=== PATIENT | male | born 1955 | race Caucasian/White ===

== ENCOUNTER 2018-03-23 17:02 | Emergency (ER) | payer MEDICARE, OTHER ==
[~2018-03-23] VITALS: Ht 170.2 cm; Wt 108.4 kg
--- NOTE | 2018-03-23 17:14 | PHYS DOC ---
Past Medical History Past Medical History: CVA (LUKAS BENNETT APRN) Adult General Chief Complaint Chief Complaint: MECHANICAL FALL HPI HPI Patient is a 62 year old male with history of CVA, left-sided weakness, who presents today to be evaluated status post falling. Patient states he was trying his new cane when he accidentally fell. Patient denies any loss of consciousness. He states he hit the left side of his face on the table. Patient has bruising on the left forehead. Patient denies any neck pain. Patient denies being on any anticoagulants. (LUKAS BENNETT APRN) Review of Systems Review of Systems Constitutional: Denies fever or chills [] Eyes: Denies change in visual acuity, redness, or eye pain [] HENT: Denies nasal congestion or sore throat [] Respiratory: Denies cough or shortness of breath [] Cardiovascular: No additional information not addressed in HPI [] GI: Denies abdominal pain, nausea, vomiting, bloody stools or diarrhea [] : Denies dysuria or hematuria [] Musculoskeletal: 40 from standing. Denies back pain or joint pain [] Integument: Denies rash or skin lesions [] Neurologic: Bruising to the left side of the face and head. Denies headache, focal weakness or sensory changes [] All other systems were reviewed and found to be within normal limits, except as documented in this note. (LUKAS BENNETT APRN) Current Medications Current Medications Current Medications Medications (Trade) Dose Ordered Sig/Elvia Start Time Stop Time Status Last Admin Dose Admin Diphtheria/ Tetanus/Acell Pertussis (Boostrix) 0.5 ml ONCE ONCE 03/23/18 17:15 03/23/18 18:07 DC (TERRY REAL DO) Allergies Allergies Allergies Coded Allergies Type Severity Reaction Last Updated Verified No Known Drug Allergies 03/23/18 No (TERRY REAL DO) Physical Exam Physical Exam Constitutional: Well developed, well nourished, no acute distress, non-toxic appearance. [] HENT: Normocephalic, atraumatic, bilateral external ears normal, oropharynx moist, no oral exudates, nose normal. [] Eyes: PERRLA, EOMI, conjunctiva normal, no discharge. [] Neck: Normal range of motion, no tenderness, supple, no stridor. [] Cardiovascular:Heart rate regular rhythm, no murmur [] Lungs & Thorax: Bilateral breath sounds clear to auscultation [] Abdomen: Bowel sounds normal, soft, no tenderness, no masses, no pulsatile masses. [] Skin: Warm, dry, superficial bruising noted on the left forehead as well as the left lateral face. Back: No tenderness, no CVA tenderness. [] Extremities: No tenderness, no cyanosis, no clubbing, ROM intact, no edema. Left upper extremity is contracted chronically. Left lower extremity in a brace. Neurologic: Alert and oriented X 3, normal motor function, normal sensory function, no focal deficits noted. Cranial nerves II through XII intact. Psychologic: Affect normal, judgement normal, mood normal. [] (LUKAS BENNETT APRN) Current Patient Data Vital Signs Vital Signs Date Time Temp Pulse Resp B/P (MAP) Pulse Ox O2 Delivery O2 Flow Rate FiO2 03/23/18 17:04 97.5 104 22 125/67 (86) 95 Nasal Cannula 2.0 97.5 (EIDENBERG,TERRY DO) EKG EKG [] (LUKAS BENNETT APRN) Radiology/Procedures Radiology/Procedures []PROCEDURE: CT HEAD AND MAXILLOFACIAL WO Exam performed: CT scan of the head and maxillofacial without contrast. Date of Service: 03/23/2018. Comparison: None available. Clinical History: Fall, headache, history of strokes. Technique: Helical acquisitions are obtained from the foramen magnum to the vertex without intravenous administration of contrast. Findings: CT Head: Prominence of cortical sulci and ventricular system is noted consistent with age-related atrophy. There are areas of low-attenuation in the right hemisphere consistent with previously known chronic infarct with expected dilatation of the right lateral ventricle. Normal white-white differentiation is maintained. There is no extra axial fluid collection, intraparenchymal hemorrhage or mass lesion. The visualized portions of the orbits, paranasal sinuses and the mastoid air cells appear clear. The calvarium is intact. CT maxillofacial: There is normal aeration of both frontal, ethmoid, maxillary and sphenoid sinuses. No air-fluid level, mucoperiosteal thickening or mucus retention cyst is identified. The bony orbital margins and the intraocular contents are bilaterally symmetric and unremarkable. Both ostiomeatal complexes are preserved. Nasal bones and zygomatic arches are preserved.No abnormal fluid collections or hematoma formation seen. The visualized portion of the brain is normal. Impression: 1. No acute intracranial process detected. 2. Age-related atrophy is seen. 3. No acute abnormality seen in the CT maxillofacial. PQRS Compliance Statement: One or more of the following individualized dose reduction techniques were utilized for this examination: 1. Automated exposure control 2. Adjustment of the mA and/or kV according to patient size 3. Use of iterative reconstruction technique Electronically signed by: Theresa Beyer MD (03/23/2018 5:51 PM) [facility] DICTATED and SIGNED BY: THERESA BEYER MD DATE: 03/23/18 174 (LUKAS BENNETT APRN) Course & Med Decision Making Course & Med Decision Making Pertinent Labs and Imaging studies reviewed. (See chart for details) This is a 62-year-old male patient presented to the ED today with complaints of bruising to the left forehead and left facial area after he fell. CT of the head , maxillofacial was negative for any acute findings. Neosporin recommended to the bruises on the left facial area. Tylenol recommended for pain. Follow-up with primary care doctor in the course of next week. (LUKAS EBNNETT APRN) Dragon Disclaimer Dragon Disclaimer This electronic medical record was generated, in whole or in part, using a voice recognition dictation system. (LUKAS BENNETT APRN) Departure Departure Impression: Primary Impression: Fall from standing Additional Impression: Facial contusion Disposition: 01 HOME, SELF-CARE Condition: STABLE Referrals: CHAO BO MD (PCP) follow up next week Patient Instructions: Contusion, [id number], Fall Prevention and Home Safety Additional Instructions: You were evaluated in the emergency room after falling. Your CT of the head and face were negative for any acute findings. Apply Neosporin to the bruised area on the face. You can take Tylenol as needed for pain. Try to ice and elevate the affected areas. Follow-up with your doctor next week. Come back to the ED at any point symptoms worsen. Problem Qualifiers Primary Impression: Fall from standing Encounter type: initial encounter Qualified Codes: W19.XXXA - Unspecified fall, initial encounter Additional Impression: Facial contusion Encounter type: initial encounter Qualified Codes: S00.83XA - Contusion of other part of head, initial encounter LUKAS BENNETT APRN Mar 23, 2018 17:14 TERRY REAL DO Mar 23, 2018 18:25
[2018-03-23] MEDS ORDERED: DIPHTH,PERTUSS(ACELL),TET TOX 0.5 ML DISP.SYRIN. VAX IM ONE (17:15)
--- NOTE | 2018-03-23 17:56 | RAD ---
Exam performed: CT scan of the head and maxillofacial without contrast. Date of Service: 03/23/2018. Comparison: None available. Clinical History: Fall, headache, history of strokes. Technique: Helical acquisitions are obtained from the foramen magnum to the vertex without intravenous administration of contrast. Findings: CT Head: Prominence of cortical sulci and ventricular system is noted consistent with age-related atrophy. There are areas of low-attenuation in the right hemisphere consistent with previously known chronic infarct with expected dilatation of the right lateral ventricle. Normal white-white differentiation is maintained. There is no extra axial fluid collection, intraparenchymal hemorrhage or mass lesion. The visualized portions of the orbits, paranasal sinuses and the mastoid air cells appear clear. The calvarium is intact. CT maxillofacial: There is normal aeration of both frontal, ethmoid, maxillary and sphenoid sinuses. No air-fluid level, mucoperiosteal thickening or mucus retention cyst is identified. The bony orbital margins and the intraocular contents are bilaterally symmetric and unremarkable. Both ostiomeatal complexes are preserved. Nasal bones and zygomatic arches are preserved.No abnormal fluid collections or hematoma formation seen. The visualized portion of the brain is normal. Impression: 1. No acute intracranial process detected. 2. Age-related atrophy is seen. 3. No acute abnormality seen in the CT maxillofacial. PQRS Compliance Statement: One or more of the following individualized dose reduction techniques were utilized for this examination: 1. Automated exposure control 2. Adjustment of the mA and/or kV according to patient size 3. Use of iterative reconstruction technique Electronically signed by: Theresa Beyer MD (03/23/2018 5:51 PM) [facility]
[2018-03-23 18:33] VITALS: BP 115/59
== END 2018-03-23 18:35 | disposition home or self-care (01) ==
LOC: ER 17:02
DX: S00.83XA Contusion of other part of head, initial encounter (principal); Z86.73 Personal history of transient ischemic attack (TIA), and cerebral infarction without residual deficits; W18.09XA Striking against other object with subsequent fall, initial encounter; Y93.89 Activity, other specified; Y92.89 Other specified places as the place of occurrence of the external cause; Y99.8 Other external cause status
CPT/HCPCS: 70450; 70486; 99284-25

== ENCOUNTER → 2018-04-12 | Outpatient (CLI) | payer OTHER ==
[2018-03-23 18:33] VITALS: BP 115/59
[2018-04-12 10:47] LABS: CHOLESTEROL/HDL RATIO 2.7
--- NOTE | 2018-04-12 10:47 | CARD ---
MR#: [id number] Date of Study: 04/12/2018 Ordering Physician: HILARIA CHRISTIANSEN, Referring Physician: HILARIA CHRISTIANSEN, Tech: Elvia Davidson CALVIN APPROVED REPORT EXAM: Two-dimensional and M-mode echocardiogram with Doppler and color Doppler. Other Information Quality : Technically LimitedHR: 75bpm Rhythm : NSRTechnically limited study due to body habitus. INDICATION CVA/TIA 2D DIMENSIONS RVDd4.0 (2.9-3.5cm)Left Atrium(2D)4.1 (1.6-4.0cm) IVSd1.0 (0.7-1.1cm)Aortic Root(2D)3.3 (2.0-3.7cm) LVDd3.9 (3.9-5.9cm)LVOT Diameter2.1 (1.8-2.4cm) PWd0.9 (0.7-1.1cm)LVDs2.8 (2.5-4.0cm) FS (%) 27.9 %SV37.0 ml LVEF(%)54.7 (>50%) M-Mode DIMENSIONS Left Atrium(MM)3.83 (2.5-4.0cm)Aortic Root2.98 (2.2-3.7cm) Aortic Valve AoV Peak Lionel.116.3cm/sAoV VTI22.3cm AO Peak GR.5.4mmHgLVOT Peak Lionel.101.7cm/s AO Mean GR.3mmHgAVA (VMAX)2.97cm2 ION (VTI)2.90cm2 Mitral Valve MV E Mjnjkumu13.4cm/sMV DECEL NHQI889cv MV A Bltvtwpn45.2cm/sE/A Ratio0.9 MV A Rdhqsblz405iz Pulmonary Valve PV Peak Wordleqh04.2cm/s Tricuspid Valve TR P. Ktnrrjad183ef/sRAP AIFIVDYQ9yoJo TR Peak Gr.09crSqANQX13vxDs LEFT VENTRICLE The left ventricle is normal size. There is normal left ventricular wall thickness. The left ventricu lar systolic function is normal. The Ejection Fraction is 55-60%. There is normal LV segmental wall m otion. Transmitral Doppler flow pattern is Grade I-abnormal relaxation pattern. RIGHT VENTRICLE The right ventricle is normal size. There is normal right ventricular wall thickness. The right ventr icular systolic function is normal. ATRIA The left atrium size is normal. The right atrium size is normal. The interatrial septum is intact wit h no evidence for an atrial septal defect or patent foramen ovale as noted on 2-D or Doppler imaging. Injection of bubbles documented no interatrial shunt. AORTIC VALVE The aortic valve is not well visualized. Doppler and Color Flow revealed no significant aortic regurg itation. There is no significant aortic valvular stenosis. MITRAL VALVE Mitral annular calcification is mild. There is no evidence of mitral valve prolapse. There is no mitr al valve stenosis. Doppler and Color Flow revealed no mitral valve regurgitation noted. TRICUSPID VALVE The tricuspid valve is normal in structure and function. Doppler and Color Flow revealed trace tricus pid regurgitation. The PA pressure was estimated at 25 mmHg. There is no tricuspid valve prolapse or vegetation. There is no tricuspid valve stenosis. PULMONIC VALVE Pulmonic valve not well visualized. GREAT VESSELS The aortic root is normal in size. The ascending aorta is normal in size. The IVC is normal in size a nd collapses >50% with inspiration. PERICARDIAL EFFUSION There is no evidence of significant pericardial effusion. Critical Notification Critical Value: No <Conclusion> The left ventricular systolic function is normal. The Ejection Fraction is 55-60%. There is normal LV segmental wall motion. Transmitral Doppler flow pattern is Grade I-abnormal relaxation pattern. Trace tricuspid regurgitation. The PA pressure was estimated at 25 mmHg. There is no evidence of significant pericardial effusion. Injection of bubbles documented no interatrial shunt. Signed by : Lv Peters, Electronically Approved : 04/12/2018 10:47:43
--- NOTE | 2018-04-12 11:21 | RAD ---
Carotid ultrasound, 04/12/2018: HISTORY: CVA Duplex evaluation of the carotid arteries and neck was performed including grayscale, color-flow and spectral Doppler analysis. There are mild scattered atherosclerotic plaques at both carotid bifurcations. The peak systolic velocity in the right internal carotid artery is 91 cm per sec with an end-diastolic velocity of 15 cm/s and an internal carotid to common carotid artery ratio 1.1. On the left the peak systolic velocity in the internal carotid artery is 63 cm per sec with an end-diastolic velocity of 15 cm/s and an internal carotid to common carotid artery ratio of 0.9. These Doppler findings do not suggest significant stenosis. Antegrade flow is present in both vertebral arteries in the neck. IMPRESSION: Mild atherosclerotic plaquing at both carotid bifurcations with underlying luminal narrowing in the 0-50 percent diameter range bilaterally. Note: Stenosis calculations for CT, MRA and conventional angiography are based upon determination of the distal ICA diameter in accordance with the NASCET methodology. Stenosis calculations for Doppler studies are derived from validated velocity criteria which are known to correlate with NASCET methodology of determining stenosis. Electronically signed by: Carlito Castellanos MD (04/12/2018 11:18 AM) [facility]
== END | disposition home or self-care (01) ==
LOC: ECHO 08:30
PROVIDERS: ATTEND Internal Medicine Cardiovascular Disease
DX: I65.23 Occlusion and stenosis of bilateral carotid arteries (principal); I25.10 Atherosclerotic heart disease of native coronary artery without angina pectoris; R00.8 Other abnormalities of heart beat
CPT/HCPCS: 36415; 80061; 83721; 83880; 93306; 93880

== ENCOUNTER 2018-05-16 16:44 | Emergency (ER) | payer OTHER ==
[~2018-05-16] VITALS: Ht 170.2 cm; Wt 90.7 kg
[2018-05-16 17:00] VITALS: BP 106/62
[2018-05-16 17:22] LABS: BASO # 0.1 x10^3/uL (0.0-0.2); BASO % 1 % (0-3); EOS # 0.6 x10^3/uL (0.0-0.7); EOS % 5 % (0-3); HEMATOCRIT 39.9 % (39.0-53.0); HEMOGLOBIN 13.1 g/dL (13.0-17.5); LYMPH % 18 % (24-48); MEAN CORPUSCULAR HEMOGLOBIN 29 pg (25-35); MEAN CORPUSCULAR HGB CONC 33 g/dL (31-37); MEAN CORPUSCULAR VOLUME 89 fL (79-100); MONO # 0.8 x10^3/uL (0.0-1.1); MONO % 7 % (0-9); NEUT # 7.6 x10^3uL (1.8-7.7); NEUT % 69 % (31-73); PLATELET COUNT 241 x10^3/uL (140-400); RED BLOOD COUNT 4.46 x10^6/uL (4.30-5.70); RED CELL DISTRIBUTION WIDTH 14.6 % (11.5-14.5); WHITE BLOOD COUNT 11.1 x10^3/uL (4.0-11.0)
[2018-05-16 17:32] LABS: CALCIUM 8.7 mg/dL (8.5-10.1); CREATININE 1.1 mg/dL (0.7-1.3); GFR 68.1; POTASSIUM 3.9 mmol/L (3.5-5.1)
[2018-05-16 17:38] LABS: ALBUMIN 3.5 g/dL (3.4-5.0); ALBUMIN/GLOBULIN RATIO 0.9 (1.0-1.7); MAGNESIUM 1.6 mg/dL (1.8-2.4); TOTAL BILIRUBIN 0.3 mg/dL (0.2-1.0); TOTAL PROTEIN 7.4 g/dL (6.4-8.2)
[2018-05-16 17:48] LABS: CREATINE KINASE 66 U/L (39-308)
--- NOTE | 2018-05-16 18:04 | PHYS DOC ---
Past Medical History Past Medical History: CVA, Diabetes-Type II (DONALDLUKAS APRN) Additional Past Surgical Histo: eye surgery for lens bilaterally (RAMARyannLUKAS MAYEN) Alcohol Use: None Drug Use: None (DONALDLUKAS MAYEN) Adult General Chief Complaint Chief Complaint: MULTIPLE COMPLAINTS HPI HPI Patient is a 62 year old male with history of CVA and left-sided weakness, hypertension, diabetes type 2, chronic edema to bilateral lower extremities, who presents to the ED today with the , states patient has had increased lower extremity swelling that they noted today. states patient is on Lasix for this which he took today. also states patient was hypotensive with BPs in 90s over 60s at home. also states patient had high blood glucose in the 250s at home. Patient is on metformin for diabetes. Patient himself denies any complaints. Patient is also on Eliquis (RAMALUKAS Garzon APRN) Review of Systems Review of Systems Constitutional: Denies fever or chills [] Eyes: Denies change in visual acuity, redness, or eye pain [] HENT: Denies nasal congestion or sore throat [] Respiratory: Denies cough or shortness of breath [] Cardiovascular: Reports hypotension. No additional information not addressed in HPI [] GI: Denies abdominal pain, nausea, vomiting, bloody stools or diarrhea [] : Denies dysuria or hematuria [] Musculoskeletal: Reports chronic edema. Denies back pain or joint pain [] Integument: Denies rash or skin lesions [] Neurologic: Denies headache, focal weakness or sensory changes [] Endocrine: Reports hyperglycemia All other systems were reviewed and found to be within normal limits, except as documented in this note. (LUKAS BENNETT NETWORK SPECIALIST) Allergies Allergies Allergies Coded Allergies Type Severity Reaction Last Updated Verified No Known Drug Allergies 03/23/18 No (MANE MILLER DO) Physical Exam Physical Exam Constitutional: Well developed, well nourished, no acute distress, non-toxic appearance. [] HENT: Normocephalic, atraumatic, bilateral external ears normal, oropharynx moist, no oral exudates, nose normal. [] Eyes: PERRLA, EOMI, conjunctiva normal, no discharge. [] Neck: Normal range of motion, no tenderness, supple, no stridor. [] Cardiovascular:Heart rate regular rhythm, no murmur [] Lungs & Thorax: Bilateral breath sounds clear to auscultation [] Abdomen: Bowel sounds normal, soft, no tenderness, no masses, no pulsatile masses. [] Skin: Warm, dry, no erythema, no rash. [] Back: No tenderness, no CVA tenderness. [] Extremities: No tenderness, no cyanosis, no clubbing, left upper extremity is contracted from a previous stroke, +1 chronic bilateral lower extremity edema. Negative Homans sign bilaterally. Neurologic: Alert and oriented X 3, normal motor function, normal sensory function, no focal deficits noted. [] Psychologic: Affect normal, judgement normal, mood normal. [] (LUKAS BENNETT APRN) Current Patient Data Vital Signs Vital Signs Date Time Temp Pulse Resp B/P (MAP) Pulse Ox O2 Delivery O2 Flow Rate FiO2 05/16/18 17:00 98.2 95 16 106/62 (77) 93 Room Air 98.2 (MILLER,MANE R DO) Lab Values Laboratory Tests Test 05/16/18 16:03 05/16/18 16:56 05/16/18 18:00 White Blood Count 11.1 x10^3/uL (4.0-11.0) H Red Blood Count 4.46 x10^6/uL (4.30-5.70) Hemoglobin 13.1 g/dL (13.0-17.5) Hematocrit 39.9 % (39.0-53.0) Mean Corpuscular Volume 89 fL (79-100) Mean Corpuscular Hemoglobin 29 pg (25-35) Mean Corpuscular Hemoglobin Concent 33 g/dL (31-37) Red Cell Distribution Width 14.6 % (11.5-14.5) H Platelet Count 241 x10^3/uL (140-400) Neutrophils (%) (Auto) 69 % (31-73) Lymphocytes (%) (Auto) 18 % (24-48) L Monocytes (%) (Auto) 7 % (0-9) Eosinophils (%) (Auto) 5 % (0-3) H Basophils (%) (Auto) 1 % (0-3) Neutrophils # (Auto) 7.6 x10^3uL (1.8-7.7) Lymphocytes # (Auto) 2.0 x10^3/uL (1.0-4.8) Monocytes # (Auto) 0.8 x10^3/uL (0.0-1.1) Eosinophils # (Auto) 0.6 x10^3/uL (0.0-0.7) Basophils # (Auto) 0.1 x10^3/uL (0.0-0.2) Prothrombin Time 13.0 SEC (11.7-14.0) Prothrombin Time INR 1.0 (0.8-1.1) PTT 32 SEC (24-38) Sodium Level 137 mmol/L (136-145) Potassium Level 3.9 mmol/L (3.5-5.1) Chloride Level 99 mmol/L (98-107) Carbon Dioxide Level 28 mmol/L (21-32) Anion Gap 10 (6-14) Blood Urea Nitrogen 13 mg/dL (8-26) Creatinine 1.1 mg/dL (0.7-1.3) Estimated GFR (Cockcroft-Gault) 68.1 BUN/Creatinine Ratio 12 (6-20) Glucose Level 155 mg/dL (70-99) H Calcium Level 8.7 mg/dL (8.5-10.1) Magnesium Level 1.6 mg/dL (1.8-2.4) L Total Bilirubin 0.3 mg/dL (0.2-1.0) Aspartate Amino Transferase (AST) 15 U/L (15-37) Alanine Aminotransferase (ALT) 32 U/L (16-63) Alkaline Phosphatase 105 U/L (46-116) Creatine Kinase 66 U/L (39-308) Creatine Kinase MB (Mass) 1.0 ng/mL (0.0-3.6) Creatine Kinase MB Relative Index % (0-4) Troponin I Quantitative < 0.017 ng/mL (0.000-0.055) DU-Fjm-B-Type Natriuretic Peptide 136 pg/mL (0-124) H Total Protein 7.4 g/dL (6.4-8.2) Albumin 3.5 g/dL (3.4-5.0) Albumin/Globulin Ratio 0.9 (1.0-1.7) L Thyroid Stimulating Hormone (TSH) 1.403 uIU/mL (0.358-3.74) Glucose (Fingerstick) 154 mg/dL (70-99) H Urine Collection Type Unknown Urine Color Yellow Urine Clarity Clear Urine pH 5.0 Urine Specific [place] 1.015 Urine Protein Negative mg/dL (NEG-TRACE) Urine Glucose (UA) Negative mg/dL (NEG) Urine Ketones (Stick) Negative mg/dL (NEG) Urine Blood Negative (NEG) Urine Nitrite Negative (NEG) Urine Bilirubin Negative (NEG) Urine Urobilinogen Dipstick 0.2 mg/dL (0.2 mg/dL) Urine Leukocyte Esterase Negative (NEG) Urine RBC 0 /HPF (0-2) Urine WBC 0 /HPF (0-4) Urine Squamous Epithelial Cells Few /LPF Urine Bacteria 0 /HPF (0-FEW) Urine Hyaline Casts Few /HPF Urine Mucus Slight /LPF Laboratory Tests 05/16/18 16:03 Laboratory Tests 05/16/18 16:03 (MANE MILLER DO) EKG EKG 17:[address] Naylor sinus rhythm heart rate 94 no STEMI[] (LUKAS BENNETT APRN) Radiology/Procedures Radiology/Procedures [] (LUKAS BENNETT APRN) Course & Med Decision Making Course & Med Decision Making Pertinent Labs and Imaging studies reviewed. (See chart for details) This is a 62-year-old male patient presenting to the ED today to be evaluated for chronic bilateral lower extremity swelling, hypotension, hyperglycemia. Patient's EKG is negative, labs are negative for any acute findings including glucose of 155, BNP 136, chest x-ray noted slight CHF, blood pressures when I went to re-evaluate patient were in the 120s over 60s. Reassured patient and family. Considering his already on furosemide for chronic lower extremity swelling I recommended they continue taking this medication. I recommended elevation of bilateral lower extremities, I recommended compression stockings. Patient has very good follow-up. Requested a follow-up in the course of this week or next week. (LUKAS BENNETT APRN) Dragon Disclaimer Dragon Disclaimer This electronic medical record was generated, in whole or in part, using a voice recognition dictation system. (LUKAS BENNETT APRN) Departure Departure Impression: Primary Impression: Chronic edema Additional Impressions: Hyperglycemia Hypotension Disposition: 01 HOME, SELF-CARE Condition: STABLE Referrals: MANJINDER DEWEY MD (PCP) follow up this week or next week Patient Instructions: Edema, Yeln-rw-Yked Additional Instructions: You were evaluated in the emergency room for hypotension, hyperglycemia, chronic lower extremity swelling. Your blood glucose was okay in the emergency room. Your blood pressure was also okay. Continue taking furosemide as prescribed by your doctor for the swelling. Consider wearing compression stocking and elevating your feet above your heart. Follow-up with your doctor in the course of this week or next week. Attending Signature Attending Signature I have reviewed the PA/SIDE SPLITTER's note and plan of care. I was available for consultation as needed at all times during the patient's visit in the emergency department. I agree with the clinical impression, plan and disposition. (MANE MILLER DO) Problem Qualifiers Additional Impressions: Hypotension Hypotension type: unspecified hypotension type Qualified Codes: I95.9 - Hypotension, unspecified DONALDLUKAS MAYEN May 16, 2018 18:04 MANE MILLER DO May 19, 2018 09:56
[2018-05-16 18:14] LABS: BILIRUBIN,URINE NEGATIVE (NEG); CLARITY,URINE CLEAR; COLOR,URINE YELLOW; NITRITE,URINE NEGATIVE (NEG); PROTEIN,URINE NEGATIVE (NEG-TRACE); UROBILINOGEN,URINE 0.2 mg/dL (0.2 mg/dL)
--- NOTE | 2018-05-16 18:16 | EKG ---
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
[2018-05-16 18:30] LABS: BACTERIA,URINE 0 /HPF (0-FEW); HYALINE CASTS, URINE FEW /HPF; RBC,URINE 0 /HPF (0-2); SQUAMOUS EPITHELIAL CELL,UR FEW /LPF; WBC,URINE 0 /HPF (0-4)
--- NOTE | 2018-05-16 20:40 | RAD ---
EXAM: AP View of the chest DATE: 05/16/2018 5:27 PM INDICATION: LOWER EXTREMITY EDEMA. Hx HTN, DIABETES. COMPARISON: No Prior FINDINGS: The heart is not enlarged. Atherosclerotic calcifications of the tortuous aorta are seen. Mediastinal and hilar contours are normal. No focal parenchymal airspace opacity. No pleural effusion or pneumothorax. IMPRESSION: 1. No radiographic evidence for acute cardiopulmonary process. Electronically signed by: Geovany Reilly MD (05/16/2018 8:37 PM) [facility]
== END 2018-05-16 19:33 | disposition home or self-care (01) ==
LOC: ER 16:44
DX: G89.29 Other chronic pain (principal); R60.0 Localized edema; E11.65 Type 2 diabetes mellitus with hyperglycemia; I95.9 Hypotension, unspecified; I10 Essential (primary) hypertension; Z86.73 Personal history of transient ischemic attack (TIA), and cerebral infarction without residual deficits
CPT/HCPCS: 36415; 71045; 80053; 81001; 82553; 82962; 83735; 83880; 84443; 84484; 85025; 85610; 85730; 93005; 99284-25

== ENCOUNTER 2018-11-09 13:56 | Emergency (ER) | payer OTHER ==
[~2018-11-09] VITALS: Ht 170.2 cm; Wt 111.1 kg
[2018-11-09 14:01] VITALS: BP 133/58
[2018-11-09] MEDS ORDERED: TRIA15OI9 TP (14:29)
--- NOTE | 2018-11-09 14:29 | PHYS DOC ---
Past Medical History Past Medical History: CVA, Diabetes-Type II Past Surgical History: Other Additional Past Surgical Histo: eye surgery for lens bilaterally Alcohol Use: None Drug Use: None Adult General Chief Complaint Chief Complaint: SKIN RASH/ABSCESS [facility] HPI Patient is a 63 year old patient with history of left hemiplegia who presents with complaining of rash on left armpit. Patient stated he gets a bath acuity and this morning when she wanted to give him a bath he had a erythematous area and left axillary area without itching, fever and chills, pain, discharge, history of the same problem. Review of Systems Review of Systems Constitutional: Denies fever or chills [] Eyes: Denies change in visual acuity, redness, or eye pain [] HENT: Denies nasal congestion or sore throat [] Respiratory: Denies cough or shortness of breath [] Cardiovascular: No additional information not addressed in HPI [] GI: Denies abdominal pain, nausea, vomiting, bloody stools or diarrhea [] : Denies dysuria or hematuria [] Musculoskeletal: Denies back pain or joint pain [] Integument: Denies rash or skin lesions [] Neurologic: Denies headache, focal weakness or sensory changes [] Endocrine: Denies polyuria or polydipsia [] All other systems were reviewed and found to be within normal limits, except as documented in this note. Allergies Allergies Allergies Coded Allergies Type Severity Reaction Last Updated Verified No Known Drug Allergies 03/23/18 No Physical Exam Physical Exam Constitutional: Well developed, well nourished, no acute distress, non-toxic appearance. [] HENT: Normocephalic, atraumatic, bilateral external ears normal, oropharynx moist, no oral exudates, nose normal. [] Eyes: PERRLA, EOMI, conjunctiva normal, no discharge. [] Neck: Normal range of motion, no tenderness, supple, no stridor. [] Cardiovascular:Heart rate regular rhythm, no murmur [] Lungs & Thorax: Bilateral breath sounds clear to auscultation [] Abdomen: Bowel sounds normal, soft, no tenderness, no masses, no pulsatile masses. [] Skin: Warm, dry, no erythema, no rash. [] Back: No tenderness, no CVA tenderness. [] Extremities: No tenderness, no cyanosis, no clubbing, ROM intact, no edema. [] Neurologic: Alert and oriented X 3, normal motor function, normal sensory function, no focal deficits noted. [] Psychologic: Affect normal, judgement normal, mood normal. [] Current Patient Data Vital Signs Vital Signs Date Time Temp Pulse Resp B/P (MAP) Pulse Ox O2 Delivery O2 Flow Rate FiO2 11/09/18 14:01 97.9 80 16 95 Room Air 97.9 EKG EKG [] Radiology/Procedures Radiology/Procedures [] Course & Med Decision Making Course & Med Decision Making Pertinent Labs and Imaging studies reviewed. (See chart for details) [] Dragon Disclaimer Dragon Disclaimer This electronic medical record was generated, in whole or in part, using a voice recognition dictation system. Departure Departure Impression: Primary Impression: Candidiasis of skin Disposition: HOME, SELF-CARE (at 1427) Condition: STABLE Referrals: MANJINDER DEWEY MD (PCP) Patient Instructions: Cutaneous Candidiasis, Yeast Infection of the Skin, [id number] Additional Instructions: Keep affected area dry and clean, with exposure to the air Follow-up with your primary care physician in 3-5 days Return to ER if not getting better Scripts Nystatin (NYSTATIN) 15 Gm Oint...g. 1 KATHI TP QID, #30 GM Prov: KVNG SINGH MD 11/09/18 KVNG SINGH MD Nov 09, 2018 14:29
[2018-11-09] MEDS ORDERED: NYST15OI TP (17:36)
== END 2018-11-09 14:39 | disposition home or self-care (01) ==
LOC: ER 13:56
DX: B37.2 Candidiasis of skin and nail (principal); E11.9 Type 2 diabetes mellitus without complications; Z86.73 Personal history of transient ischemic attack (TIA), and cerebral infarction without residual deficits
CPT/HCPCS: 99283

== ENCOUNTER 2019-01-15 09:45 | Emergency (ER) | payer OTHER ==
[~2019-01-15] VITALS: Ht 182.9 cm; Wt 111.1 kg
[~2019-01-15 09:45] MED LIST: NYST15OI TP; TRIA15OI9 TP
--- NOTE | 2019-01-15 10:02 | PHYS DOC ---
Past Medical History Past Medical History: CVA, Diabetes-Type II Past Surgical History: Other Additional Past Surgical Histo: eye surgery for lens bilaterally Alcohol Use: None Drug Use: None Adult General Chief Complaint Chief Complaint: TREMORS HPI HPI 63-year-old male presenting the emergency department today with uncontrolled shaking for about 10 minutes about an hour prior to arrival. He comes in by EMS. It spontaneously resolved now is feeling much better. He has a history of a CVA which left residual left-sided weakness of the upper and lower extremities. He has never had these episodes before. He did not lose consciousness. He did not bite his tongue. He did not lose bowel or bladder. ROS: He denies any chest pain shortness of breath back pain abdominal pain headache fevers or chills. All other review of systems is negative unless otherwise noted in history of present illness. ED course: 63-year-old male presenting with shaking episode that lasted about 10 minutes. Workup here is unremarkable. It seems unlikely the patient had a seizure as he didn't pass out. I spoke with Dr. Gonzalez about the patient and he agrees. We will discharge patient home to follow-up with his doctor in 1-2 days. Review of Systems Review of Systems SEE ABOVE. Allergies Allergies Allergies Coded Allergies Type Severity Reaction Last Updated Verified No Known Drug Allergies 03/23/18 No Physical Exam Physical Exam SEE ABOVE Constitutional: Well developed, well nourished, no acute distress, non-toxic appearance. Pt is able to follow commands. HENT: Normocephalic, atraumatic, bilateral external ears normal, oropharynx moist, no oral exudates, nose normal. [] Eyes: PERRLA, EOMI, conjunctiva normal, no discharge. [] Neck: Normal range of motion, no tenderness, supple, no stridor. [] Cardiovascular:Heart rate regular rhythm, no murmur [] Lungs & Thorax: Bilateral breath sounds clear to auscultation [] Abdomen: Bowel sounds normal, soft, no tenderness, no masses, no pulsatile masses. [] Skin: Warm, dry, no erythema, no rash. [] Back: No tenderness, no CVA tenderness. [] Extremities: No tenderness, no cyanosis, no clubbing, ROM intact, no edema. [] Neurologic: Mental status: Awake oriented and alert x3 Cranial nerves: Extraocular movements intact, eyebrows zahra bilaterally, smile symmetric, uvula elevation nl, shoulder shrug intact bilaterally, tongue protrusion normal DTRs: 2+ Sensation: Baseline Strength: The patient has chronic left upper extremity left lower extremity weakness which is unchanged from previous CVA. Baseline neuro strength. Psychologic: Affect normal, judgement normal, mood normal. [] Current Patient Data Vital Signs Vital Signs Date Time Temp Pulse Resp B/P (MAP) Pulse Ox O2 Delivery O2 Flow Rate FiO2 01/15/19 11:50 110 127/72 (90) 97 Nasal Cannula 2.0 01/15/19 09:52 98.5 22 98.5 Lab Values Laboratory Tests Test 01/15/19 10:20 01/15/19 11:58 White Blood Count 9.1 x10^3/uL (4.0-11.0) Red Blood Count 4.70 x10^6/uL (4.30-5.70) Hemoglobin 13.6 g/dL (13.0-17.5) Hematocrit 40.7 % (39.0-53.0) Mean Corpuscular Volume 87 fL (79-100) Mean Corpuscular Hemoglobin 29 pg (25-35) Mean Corpuscular Hemoglobin Concent 34 g/dL (31-37) Red Cell Distribution Width 14.4 % (11.5-14.5) Platelet Count 263 x10^3/uL (140-400) Neutrophils (%) (Auto) 65 % (31-73) Lymphocytes (%) (Auto) 21 % (24-48) L Monocytes (%) (Auto) 9 % (0-9) Eosinophils (%) (Auto) 4 % (0-3) H Basophils (%) (Auto) 1 % (0-3) Neutrophils # (Auto) 5.9 x10^3/uL (1.8-7.7) Lymphocytes # (Auto) 1.9 x10^3/uL (1.0-4.8) Monocytes # (Auto) 0.8 x10^3/uL (0.0-1.1) Eosinophils # (Auto) 0.4 x10^3/uL (0.0-0.7) Basophils # (Auto) 0.1 x10^3/uL (0.0-0.2) Sodium Level 135 mmol/L (136-145) L Potassium Level 3.8 mmol/L (3.5-5.1) Chloride Level 96 mmol/L (98-107) L Carbon Dioxide Level 26 mmol/L (21-32) Anion Gap 13 (6-14) Blood Urea Nitrogen 23 mg/dL (8-26) Creatinine 1.1 mg/dL (0.7-1.3) Estimated GFR (Cockcroft-Gault) 67.8 Glucose Level 171 mg/dL (70-99) H Calcium Level 9.0 mg/dL (8.5-10.1) Total Bilirubin 0.4 mg/dL (0.2-1.0) Direct Bilirubin 0.1 mg/dL (0.0-0.2) Aspartate Amino Transferase (AST) 13 U/L (15-37) L Alanine Aminotransferase (ALT) 23 U/L (16-63) Alkaline Phosphatase 98 U/L (46-116) Troponin I Quantitative < 0.017 ng/mL (0.000-0.055) Total Protein 7.8 g/dL (6.4-8.2) Albumin 3.6 g/dL (3.4-5.0) Lipase 49 U/L (73-393) L Urine Collection Type Void Urine Color Yellow Urine Clarity Clear Urine pH 6.0 Urine Specific [place] 1.020 Urine Protein Negative mg/dL (NEG-TRACE) Urine Glucose (UA) Negative mg/dL (NEG) Urine Ketones (Stick) Negative mg/dL (NEG) Urine Blood Negative (NEG) Urine Nitrite Negative (NEG) Urine Bilirubin Negative (NEG) Urine Urobilinogen Dipstick 1.0 mg/dL (0.2 mg/dL) Urine Leukocyte Esterase Negative (NEG) Urine RBC Rare /HPF (0-2) Urine WBC 1-4 /HPF (0-4) Urine Squamous Epithelial Cells Few /LPF Urine Bacteria Few /HPF (0-FEW) Urine Hyaline Casts Moderate /HPF Urine Mucus Marked /LPF Laboratory Tests 01/15/19 10:20 Laboratory Tests 01/15/19 10:20 EKG EKG [] Radiology/Procedures Radiology/Procedures [] Course & Med Decision Making Course & Med Decision Making Pertinent Labs and Imaging studies reviewed. (See chart for details) [] Dragon Disclaimer Dragon Disclaimer This electronic medical record was generated, in whole or in part, using a voice recognition dictation system. Departure Departure Impression: Primary Impression: Episode of shaking Disposition: HOME, SELF-CARE Condition: STABLE Referrals: MANJINDER DEWEY MD (PCP) Patient Instructions: Tremor Additional Instructions: Thank you for allowing us to participate in your care today. Return to the emergency department you have any new or worsening symptoms, or if you are concerned for any reason. Return to emergency department if you have any new or concerning symptoms including but not limited to fever, chills, nausea, vomiting, intractable pain, any new rashes, chest pain, shortness of air, uncontrolled bleeding, difficulty breathing, and/or vision loss. Follow up with your primary care physician or urgent care within 1-2 days. Call your Primary Doctor tomorrow and inform them of your visit today. If you do not have a primary care provider we are happy to provide you with a list of our primary care providers contact information. This condition should be evaluated by your primary care physician and any recommended consulting services for continued management within 2 days after discharge. If at any time, you are having difficulty getting into your primary care doctor or a specialist, return to the emergency department. SMILEY SIMEON MD Jan 15, 2019 10:02
[2019-01-15 10:37] LABS: BASO # 0.1 x10^3/uL (0.0-0.2); BASO % 1 % (0-3); EOS # 0.4 x10^3/uL (0.0-0.7); EOS % 4 % (0-3); HEMATOCRIT 40.7 % (39.0-53.0); HEMOGLOBIN 13.6 g/dL (13.0-17.5); LYMPH # 1.9 x10^3/uL (1.0-4.8); LYMPH % 21 % (24-48); MEAN CORPUSCULAR HEMOGLOBIN 29 pg (25-35); MEAN CORPUSCULAR HGB CONC 34 g/dL (31-37); MEAN CORPUSCULAR VOLUME 87 fL (79-100); MONO # 0.8 x10^3/uL (0.0-1.1); MONO % 9 % (0-9); NEUT # 5.9 x10^3/uL (1.8-7.7); NEUT % 65 % (31-73); PLATELET COUNT 263 x10^3/uL (140-400); RED CELL DISTRIBUTION WIDTH 14.4 % (11.5-14.5); WHITE BLOOD COUNT 9.1 x10^3/uL (4.0-11.0)
[2019-01-15 10:45] LABS: CREATININE 1.1 mg/dL (0.7-1.3); GFR 67.8; POTASSIUM 3.8 mmol/L (3.5-5.1)
[2019-01-15 10:53] LABS: ALBUMIN 3.6 g/dL (3.4-5.0); DIRECT BILIRUBIN 0.1 mg/dL (0.0-0.2); TOTAL BILIRUBIN 0.4 mg/dL (0.2-1.0); TOTAL PROTEIN 7.8 g/dL (6.4-8.2)
--- NOTE | 2019-01-15 11:10 | RAD ---
STUDY: CT head without contrast INDICATION: Tremors. COMPARISON: 03/23/2018 TECHNIQUE: Axial CT imaging through the head without the use of intravenous contrast. Sagittal and coronal reformats were obtained. One or more of the following individualized dose reduction techniques were utilized for this examination: 1. Automated exposure control 2. Adjustment of the mA and/or kV according to patient size 3. Use of iterative reconstruction technique. FINDINGS: No acute intracranial hemorrhage. No newly seen localized area of white-white matter differentiation loss. No mass effect or midline shift. Redemonstrated areas of cortical and subcortical encephalomalacia involving the right cerebral hemisphere as well as confluent areas of low attenuation within the right subcortical white matter. Associated ex vacuo prominence of the right lateral ventricle more so than the left. Background parenchymal volume loss as well as more patchy foci of low attenuation within the left cerebral hemisphere subcortical white matter. Redemonstrated scattered sulcal calcifications. Basilar calcifications again noted. No newly seen abnormality of the scalp or orbits. Less pronounced paranasal sinus mucosal thickening. No layering fluid within the paranasal sinuses or mastoid air cells. The calvarium is intact. IMPRESSION: 1. No acute intracranial abnormality by CT. 2. Redemonstrated prominent areas of cortical and subcortical encephalomalacia on the right as well as right more so than left bihemispheric subcortical white matter low-attenuation. The most likely etiology of these findings is related to remote ischemic events. Unchanged right more so than left ventricular prominence on an next vacuo basis. No mass effect or midline shift. Electronically signed by: MORA CARBAJAL MD (01/15/2019 11:07 AM) [facility]
[2019-01-15 11:50] VITALS: BP 127/72
[2019-01-15 12:09] LABS: BILIRUBIN,URINE NEGATIVE (NEG); CLARITY,URINE CLEAR; COLOR,URINE YELLOW; NITRITE,URINE NEGATIVE (NEG); PROTEIN,URINE NEGATIVE (NEG-TRACE)
[2019-01-15 12:22] LABS: SQUAMOUS EPITHELIAL CELL,UR FEW /LPF
[2019-01-15 12:23] LABS: BACTERIA,URINE FEW /HPF (0-FEW); HYALINE CASTS, URINE MODERATE /HPF; RBC,URINE RARE /HPF (0-2)
== END 2019-01-15 12:58 | disposition home or self-care (01) ==
LOC: ER 09:45
DX: R25.1 Tremor, unspecified (principal); E11.9 Type 2 diabetes mellitus without complications; R51 Headache; Z86.73 Personal history of transient ischemic attack (TIA), and cerebral infarction without residual deficits
CPT/HCPCS: 36415; 70450; 80048; 80076; 81001; 83690; 84484; 85025; 99285-25

== ENCOUNTER 2020-02-27 08:19 | Emergency (ER) | payer OTHER ==
[~2020-02-27] VITALS: Ht 170.2 cm; Wt 109.0 kg
[~2020-02-27 08:19] MED LIST changes: +APIX5TAB PO; +ATOR80TA72 PO; +BACL10TA PO; +CLOP75TA PO; +ESCI10TA5 PO; +FURO40TA4 PO; +LISI1TAB37 PO; +LISI40TA2 PO; +METF500T16 PO; +METO-239 PO; +OMEP20CA16 PO
--- NOTE | 2020-02-27 08:35 | PHYS DOC ---
Past Medical History Past Medical History: CVA, Diabetes-Type II Past Surgical History: Other Additional Past Surgical Histo: eye surgery for lens bilaterally Smoking Status: Never Smoker Alcohol Use: None Drug Use: None General Adult EDM: Chief Complaint: MECHANICAL FALL HPI: HPI: 64-year-old male who fell out of bed this morning. He is on Plavix after having a CVA. He has residual focal neurologic deficits from his previous CVA. He did not lose consciousness. He denies neck pain. Onset today. Location head. Duration once. No alleviating factors. He denies any injuries otherwise denies any changes in his neurologic abilities. Review of systems is negative for slurred speech diplopia change in weakness level from baseline. He denies chest pain shortness of breath or back pain. A ll other review of systems negative. ED course: 64-year-old male presenting after head injury on Plavix. Secondary traumatic survey unremarkable otherwise. CT scans unremarkable. Will discharge patient to follow-up with PCP in 1 to 2 days. Heart Score: Risk Factors: Risk Factors: DM, Current or recent (<one month) smoker, HTN, HLP, family his tory of CAD, obesity. Risk Scores: Score 0 - 3: 2.5% MACE over next 6 weeks - Discharge Home Score 4 - 6: 20.3% MACE over next 6 weeks - Admit for Clinical Observation Score 7 - 10: 72.7% MACE over next 6 weeks - Early Invasive Strategies Allergies: Allergies: Allergies Coded Allergies Type Severity Reaction Last Updated Verified I S O L A T I O N *CONTACT* Allergy Unknown 12/22/19 Yes No Known Medication Allergies Allergy Unknown 12/22/19 Yes Physical Exam: PE: Constitutional: Well developed, well nourished, no acute distress, non-toxic appearance. [] HENT: Normocephalic, abrasion to the left hindu. No depressible fractures to palpation., bilateral external ears normal, oropharynx moist, no oral exudates, nose normal. [] Throat no blood or lacerations, normal alignment Neck supple, symmetrical, trachea midline, Back/Spine symmetric, normal curvature. ROM normal, no abrasions, no tenderness to palpation, no step-offs Eyes: (pupils are equal but appera elliptoid bilaterally possibly from an eye procedure. No signs of traumatic injury to the eyes.) EOMI, conjunctiva normal, no discharge. [] Neck: Normal range of motion, no tenderness, supple, no stridor. [] Cardiovascular:Heart rate regular rhythm, no murmur [] Lungs & Thorax: Bilateral breath sounds clear to auscultation [] no crepitus to palpation. Nontender chest wall. Abdomen: Bowel sounds normal, soft, no tenderness, no masses, no pulsatile masses. No rebound tenderness or guarding. Skin: Warm, dry, no erythema, no rash. [] Extremities: No tenderness, no cyanosis, no clubbing, ROM intact, no edema. [] Neurologic: GCS 15. Speech within normal limits. Mental status: Awake oriented and alert x3 Cranial nerves: Extraocular movements intact, eyebrows zahra bilaterally, smile symmetric, uvula elevation nl, shoulder shrug intact bilaterally, tongue protrusion normal Sensation: baseline. Strength: Left upper extremity: Patient is able to lift his arm off of the bed. He has a chronic contraction of his hand. No change from baseline. Left lower extremity: Patient is able to lift his foot off the bed. No change from baseline. The patient's right upper and right lower extremity have normal strength with 5 out of 5 strength. Psychologic: Affect normal, judgement normal, mood normal. [] EKG: EKG: [] Radiology/Procedures: Radiology/Procedures: [] Course & Med Decision Making: Course & Med Decision Making Pertinent Labs and Imaging studies reviewed. (See chart for details) [] Dragon Disclaimer: Dragon Disclaimer: This electronic medical record was generated, in whole or in part, using a voice recognition dictation system. Departure Departure Impression: Primary Impression: Head injury Disposition: 01 DC HOME SELF CARE/HOMELESS Condition: STABLE Referrals: VY MCDOWELL MD (PCP) Patient Instructions: Head Injury, Adult Additional Instructions: Follow-up with your primary physician in 1 to 2 days. Return to the emergency department if you have any new or concerning findings. SMILEY SIMEON MD Feb 27, 2020 08:35
[2020-02-27 09:02] VITALS: BP 46/63
--- NOTE | 2020-02-27 09:20 | RAD ---
EXAM: Head CT without contrast; maxillofacial bone CT without contrast; cervical spine CT without con trast. HISTORY: Trauma. TECHNIQUE: Computed tomographic images of the head, maxillofacial bones and cervical spine were obtai tamar without contrast. *One or more of the following individualized dose reduction techniques were utilized for this examina tion: 1. Automated exposure control. 2. Adjustment of the mA and/or kV according to patient size. 3. Use of iterative reconstruction technique. COMPARISON: 01/15/2019. FINDINGS: Head: There is no acute or subacute intracranial hemorrhage. There is no mass effect or midline shift . There is no hydrocephalus. There are areas of encephalomalacia within the right cerebral hemisphere due to chronic infarction. There are scattered calcifications within the right cerebral sulci. There is right cerebral volume loss with ex vacuo dilatation of the right lateral ventricle. There are wir e changes involving the left cerebral hemisphere likely due to chronic small vessel disease. No taniya rial lesion is seen. Maxillofacial bones: No displaced fracture is seen. There is no sinus air-fluid level or complete opa cification. There is mild superior maxillary sinus mucosal thickening with obstruction of the right o stiomeatal unit. There is mild rightward nasal septal deviation. The temporomandibular joints are int act. There is incidental trochlear calcification within the superior medial orbits, finding which can be senescent or associated with diabetes. There is evidence of lens surgery. Cervical spine: There is multilevel endplate remodeling and osteophytosis. There is multilevel facet and uncovertebral arthropathy. There is chronic deformity of the C7 spinous process. There is no acut e fracture or suspicious osseous lesion. There is calcified plaque within the carotid bifurcations. T he lung apices are unremarkable. The combination of degenerative changes results in moderate left for aminal stenosis at C2-C3, mild right and severe left foraminal stenosis at C3-C4, mild left foraminal stenosis at C4-C5, moderate left foraminal stenosis at C5-C6, and mild left foraminal stenosis at C6 -C7. IMPRESSION: 1. No acute intracranial finding or acute maxillofacial bone or cervical spine finding. 2. Encephalomalacia within the right cerebral hemisphere due to chronic infarction and cerebral white matter changes likely due to chronic small vessel disease. 3. Multilevel degenerative change involving the cervical spine, resulting in stenosis as described ab ove. 4. Mild maxillary sinus mucosal thickening with obstruction of the right ostiomeatal unit. There is n o evidence of acute sinusitis. Electronically signed by: Quyen Torres MD (02/27/2020 9:16 AM) [id number]
== END 2020-02-27 09:47 | disposition home or self-care (01) ==
LOC: ER 08:19
DX: S00.81XA Abrasion of other part of head, initial encounter (principal); E11.9 Type 2 diabetes mellitus without complications; Z86.73 Personal history of transient ischemic attack (TIA), and cerebral infarction without residual deficits; Z98.890 Other specified postprocedural states; Z88.8 Allergy status to other drugs, medicaments and biological substances; W06.XXXA Fall from bed, initial encounter; Y93.89 Activity, other specified; Y92.89 Other specified places as the place of occurrence of the external cause; Y99.8 Other external cause status
CPT/HCPCS: 70450; 70486; 72125; 99285

== ENCOUNTER 2020-03-20 11:36 | Inpatient (IN) | payer OTHER ==
[~2020-03-20] VITALS: Ht 170.2 cm; Wt 120.7 kg
[~2020-03-20 11:36] MED LIST changes: -ESCI10TA5 PO; +ESCI10TA90 PO; -LISI40TA2 PO; +LISI40TA6 PO
[2020-03-20] MEDS ORDERED: fentaNYL PF VIAL 100 MCG/2 ML VIAL IVP ONE (12:00)
--- NOTE | 2020-03-20 12:11 | PHYS DOC ---
Past Medical History Past Medical History: CVA, Diabetes-Type II Past Surgical History: Other Additional Past Surgical Histo: eye surgery for lens bilaterally Smoking Status: Former Smoker Alcohol Use: None Drug Use: None General Adult EDM: Chief Complaint: DENTAL PROBLEM HPI: HPI: Patient is a 64 year old male who presents with dental pain has been going on for few days but left-sided facial swelling with redness that started yesterday. Patient rates his pain a nonradiating aching 9 out of 10. He took 2 Tylenol last at 10 AM this morning. Patient has some missing teeth and some dental caries. No dentist. Patient denies fever, body aches, nausea, vomiting, neck pain, neck swelling, inability to eat or drink fluids. He has a history of CVA, GERD, high cholesterol, diabetes, hypertension, bilateral eye surgery for lenses. Review of Systems: Review of Systems: Constitutional: Denies fever or chills. [] Eyes: Denies change in visual acuity. [] HENT: Denies nasal congestion or sore throat. + Dental pain [] Respiratory: Denies cough or shortness of breath. [] Cardiovascular: Denies chest pain. + Facial swelling 3+ edema. [] GI: Denies abdominal pain, nausea, vomiting, bloody stools or diarrhea. [] : Denies dysuria. [] Musculoskeletal: Denies back pain or joint pain. [] Integument: Denies rash. + Left-sided facial redness [] Neurologic: Denies headache, focal weakness or sensory changes. [] Endocrine: Denies polyuria or polydipsia. [] Lymphatic: Denies swollen glands. [] Psychiatric: Denies depression or anxiety. [] Heart Score: Risk Factors: Risk Factors: DM, Current or recent (<one month) smoker, HTN, HLP, family history of CAD, obesity. Risk Scores: Score 0 - 3: 2.5% MACE over next 6 weeks - Discharge Home Score 4 - 6: 20.3% MACE over next 6 weeks - Admit for Clinical Observation Score 7 - 10: 72.7% MACE over next 6 weeks - Early Invasive Strategies Allergies: Allergies: Allergies Coded Allergies Type Severity Reaction Last Updated Verified I S O L A T I O N *CONTACT* Allergy Unknown 12/22/19 Yes No Known Medication Allergies Allergy Unknown 12/22/19 Yes Physical Exam: PE: Constitutional: Well developed, well nourished, no acute distress, non-toxic appearance. [] HENT: Normocephalic, atraumatic, bilateral external ears normal, oropharynx moist, no oral exudates, nose normal. Left-sided dental abscess that extends into the neck. [] Eyes: PERRLA, EOMI, conjunctiva normal, no discharge. [] Neck: Normal range of motion, no tenderness, supple, no stridor. [] Cardiovascular:Heart rate regular rhythm, no murmur [] Lungs & Thorax: Bilateral breath sounds clear to auscultation [] Abdomen: Bowel sounds normal, soft, no tenderness, no masses, no pulsatile masses. [] Skin: Warm, dry, left cheek of face erythema, no rash. [] Back: No tenderness, no CVA tenderness. [] Extremities: No tenderness, no cyanosis, no clubbing, ROM intact, no edema. [] Neurologic: Alert and oriented X 3, normal motor function, normal sensory function, no focal deficits noted. [] Psychologic: Affect normal, judgement normal, mood normal. [] Current Patient Data: Vital Signs: Vital Signs Date Time Temp Pulse Resp B/P (MAP) Pulse Ox O2 Delivery O2 Flow Rate FiO2 03/20/20 11:37 98.8 88 14 118/65 (82) 93 Room Air 98.8 EKG: EKG: [] Radiology/Procedures: Radiology/Procedures: [] Impression: [facility] [address] [place], [place] [id number] IMAGING REPORT Signed PATIENT: TC CIFUENTES ACCOUNT: [id number] : 1955 LOCATION: ER AGE: 64 SEX: M EXAM STATUS: REG ER ORD. PHYSICIAN: TAM FELIX APRN REASON: large left sided dental abscess PROCEDURE: CT MAXILLOFACIAL W/CONTRAST CT maxillofacial with contrast: Reason for examination: Large left-sided dental abscess. Helical images were obtained through the maxillofacial structures with intravenous administration of 70 cc Omnipaque 300. Reconstruction was performed in sagittal and coronal planes. Examination is compromised by streak artifact from dental work. Exposure: One or more of the following individualized dose reduction techniques were utilized for this examination: 1. Automated exposure control 2. Adjustment of the mA and/or kV according to patient size 3. Use of iterative reconstruction technique. Vocal cords are symmetric. Vallecula and piriform sinuses are symmetric. No abnormality seen at the epiglottis. Airway is patent. No tonsillar or adenoidal abnormalities are seen. No abnormalities are seen at the parotid or submandibular glands. There are small lymph nodes present in the submandibular region with a reactive appearance measuring up to 1.4 cm in greatest dimension. In the left mandibular region anterior to the masseter muscle, there is diffuse soft tissue edema with swelling present. Medially within the area of soft tissue swelling however, there is a small area of decreased density possibly containing some air measuring 1.5 x 0.9 x 2.1 cm in size which may reflect associated abscess. Streak artifact limits evaluation of the origin of this process. The paranasal sinuses and mastoid air cells are clear. 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 There is no significant nasal septal deviation. The mandible is intact. Nasal bones are intact. Zygomatic arches are intact. No abnormalities are seen at the orbits. No acute abnormality seen in the visualized portion of the cervical spine. IMPRESSION: Soft tissue edema in the left mandibular region anterior and lateral to the masseter muscle which is associated with a area of focally decreased density medially measuring 1.5 x 0.9 x 2.1 cm in greatest dimensions which may reflect an associated abscess. Small reactive type lymph nodes in the submandibular region measuring up to 1.4 cm in size. Bilateral karen bullosa. Electronically signed by: Eve Lyle MD (03/20/2020 2:10 PM) [facility] DICTATED and SIGNED BY: EVE LYLE MD DATE: 03/20/20 [id number] 0 Course & Med Decision Making: Course & Med Decision Making Pertinent Labs and Imaging studies reviewed. (See chart for details) See HPI. Left facial swelling down into the neck 3+. No swelling of the throat. Speaks in full clear sentences. Wheelchair-bound due to CVA. Patient is white count is elevated. Lactic acid is also elevated. He is given Zosyn and clindamycin IV. Patient is admitted to the hospital by Dr. Jones. CT maxillofacial shows an abscess. [] Dragon Disclaimer: Dragon Disclaimer: This electronic medical record was generated, in whole or in part, using a voice recognition dictation system. Date and Time of Reassessment Date: Mar 20, 2020 Time: 16:11 Fluid Challenge Is the fluid challenge complet: No IBW Target Volume Used: No BMI > 30: Yes Vital Signs Vital Signs: Vital Signs Date Time Temp Pulse Resp B/P (MAP) Pulse Ox O2 Delivery O2 Flow Rate FiO2 03/20/20 11:37 98.8 88 14 118/65 (82) 93 Room Air 98.8 Temperature Source: Oral Respirations Respiratory Effort: Normal Respiratory Pattern: Normal Cardiovascular Pulse Rhythm: Regular Heart: Nml rate, reg. rhythm Lung Sounds Breath Sounds: Diminished Capillary Refil Capillary Refill: Rt Hand < 3 seconds Peripheral Pulse Pulse Location: Radial Pulse Strength: Normal (2+) Pulse Assessment Method: Monitor Integumentary Skin: Warm Skin Moisture: Dry Skin Turgor: Normal Skin Color: warm Fingernail Color: WNL Departure Departure Impression: Primary Impression: Dental abscess Additional Impression: SIRS (systemic inflammatory response syndrome) Disposition: 09 ADMITTED INPT THIS HOSP Admitting Physician: Vy Jones Condition: STABLE Referrals: VY JONES MD (PCP) TAM FELIX APRN Mar 20, 2020 12:11
[2020-03-20] MEDS ORDERED: IV NORMAL SALINE 1000ML BAG 1,000 ML IV ONE ×2 (12:15→21:30)
[2020-03-20 12:48] LABS: BASO # 0.1 x10^3/uL (0.0-0.2); BASO % 1 % (0-3); EOS # 0.1 x10^3/uL (0.0-0.7); EOS % 1 % (0-3); HEMATOCRIT 35.3 % (39.0-53.0); HEMOGLOBIN 12.1 g/dL (13.0-17.5); LYMPH # 1.4 x10^3/uL (1.0-4.8); LYMPH % 9 % (24-48); MEAN CORPUSCULAR HEMOGLOBIN 29 pg (25-35); MEAN CORPUSCULAR HGB CONC 34 g/dL (31-37); MEAN CORPUSCULAR VOLUME 86 fL (79-100); MONO # 1.2 x10^3/uL (0.0-1.1); MONO % 8 % (0-9); NEUT # 12.3 x10^3/uL (1.8-7.7); NEUT % 82 % (31-73); PLATELET COUNT 267 x10^3/uL (140-400); RED BLOOD COUNT 4.13 x10^6/uL (4.30-5.70); RED CELL DISTRIBUTION WIDTH 15.6 % (11.5-14.5); WHITE BLOOD COUNT 15.1 x10^3/uL (4.0-11.0)
[2020-03-20 13:03] LABS: CALCIUM 9.2 mg/dL (8.5-10.1); CREATININE 1.1 mg/dL (0.7-1.3); GFR 67.6; POTASSIUM 4.3 mmol/L (3.5-5.1)
[2020-03-20 13:09] LABS: ALBUMIN 3.3 g/dL (3.4-5.0); ALBUMIN/GLOBULIN RATIO 0.8 (1.0-1.7); TOTAL BILIRUBIN 0.6 mg/dL (0.2-1.0); TOTAL PROTEIN 7.7 g/dL (6.4-8.2)
[2020-03-20] MEDS ORDERED: IOHEXOL 300 MG/ML 100ML VIAL. IV ONE (13:15)
[2020-03-20] MEDS ORDERED: CONTRAST GIVEN. MC PRN (13:15)
[2020-03-20] MEDS ORDERED: PIPERACILLIN/TAZOBACTAM 3.375 GM in IV NORMAL SALINE 50ML 50 ML IV ONE (13:45)
[2020-03-20] MEDS ORDERED: CLINDAMYCIN 600MG PREMIX 50 ML IV ONE (13:45)
--- NOTE | 2020-03-20 14:15 | RAD ---
CT maxillofacial with contrast: Reason for examination: Large left-sided dental abscess. Helical images were obtained through the maxillofacial structures with intravenous administration of 70 cc Omnipaque 300. Reconstruction was performed in sagittal and coronal planes. Examination is comp romised by streak artifact from dental work. Exposure: One or more of the following individualized dose reduction techniques were utilized for thi s examination: 1. Automated exposure control 2. Adjustment of the mA and/or kV according to patient size 3. Use of iterative reconstruction technique. Vocal cords are symmetric. Vallecula and piriform sinuses are symmetric. No abnormality seen at the e piglottis. Airway is patent. No tonsillar or adenoidal abnormalities are seen. No abnormalities are s een at the parotid or submandibular glands. There are small lymph nodes present in the submandibular region with a reactive appearance measuring up to 1.4 cm in greatest dimension. In the left mandibula r region anterior to the masseter muscle, there is diffuse soft tissue edema with swelling present. M edially within the area of soft tissue swelling however, there is a small area of decreased density p ossibly containing some air measuring 1.5 x 0.9 x 2.1 cm in size which may reflect associated abscess . Streak artifact limits evaluation of the origin of this process. The paranasal sinuses and mastoid air cells are clear. 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 There is no signific ant nasal septal deviation. The mandible is intact. Nasal bones are intact. Zygomatic arches are inta ct. No abnormalities are seen at the orbits. No acute abnormality seen in the visualized portion of t he cervical spine. IMPRESSION: Soft tissue edema in the left mandibular region anterior and lateral to the masseter muscle which is associated with a area of focally decreased density medially measuring 1.5 x 0.9 x 2.1 cm in greatest dimensions which may reflect an associated abscess. Small reactive type lymph nodes in the submandibular region measuring up to 1.4 cm in size. Bilateral karen bullosa. Electronically signed by: Tia Chavira MD (03/20/2020 2:10 PM) TEE
[2020-03-20] MEDS ORDERED: fentaNYL PF VIAL 100 MCG/2 ML VIAL IV PRN (14:45)
[2020-03-20] MEDS ORDERED: ACETAMINOPHEN 325 MG TABLET. PO PRN (14:45)
[2020-03-20] MEDS ORDERED: IV NORMAL SALINE 500ML BAG 500 ML IV ONE (16:15)
[2020-03-20 18:07] VITALS: BP 108/64
[2020-03-20 19:00] VITALS: BP 107/60
[2020-03-20] MEDS: NYSTATIN 100,000 UNIT/GM TOPICAL OINTMENT 15GM TUBE. TP SCH (21:00)
[2020-03-20] MEDS: APIXABAN 5 MG TABLET. PO SCH (21:24)
[2020-03-20] MEDS: BACLOFEN 10 MG TABLET. PO SCH (21:24)
[2020-03-20] MEDS: ATORVASTATIN CALCIUM 40 MG TABLET. PO SCH (21:24)
[2020-03-20 23:00] VITALS: BP 98/47
[2020-03-21] MEDS: ANTI-COAG MONITOR BY PHARMACY. MC PRN ×2 (00:07→07:58)
[2020-03-21 03:02] VITALS: BP 104/47
[2020-03-21 07:00] VITALS: BP 109/67
--- NOTE | 2020-03-21 08:07 | PDOC ---
Infectious Disease Note Vital Sign Vital Signs Vital Signs Date Time Temp Pulse Resp B/P (MAP) Pulse Ox O2 Delivery O2 Flow Rate FiO2 03/21/20 03:02 98.4 98 20 104/47 (66) 92 Room Air 98.4 Labs Lab Laboratory Tests Test 03/20/20 12:33 03/20/20 17:03 03/20/20 20:25 03/21/20 04:10 White Blood Count 15.1 x10^3/uL (4.0-11.0) Red Blood Count 4.13 x10^6/uL (4.30-5.70) Hemoglobin 12.1 g/dL (13.0-17.5) Hematocrit 35.3 % (39.0-53.0) Mean Corpuscular Volume 86 fL (79-100) Mean Corpuscular Hemoglobin 29 pg (25-35) Mean Corpuscular Hemoglobin Concent 34 g/dL (31-37) Red Cell Distribution Width 15.6 % (11.5-14.5) Platelet Count 267 x10^3/uL (140-400) Neutrophils (%) (Auto) 82 % (31-73) Lymphocytes (%) (Auto) 9 % (24-48) Monocytes (%) (Auto) 8 % (0-9) Eosinophils (%) (Auto) 1 % (0-3) Basophils (%) (Auto) 1 % (0-3) Neutrophils # (Auto) 12.3 x10^3/uL (1.8-7.7) Lymphocytes # (Auto) 1.4 x10^3/uL (1.0-4.8) Monocytes # (Auto) 1.2 x10^3/uL (0.0-1.1) Eosinophils # (Auto) 0.1 x10^3/uL (0.0-0.7) Basophils # (Auto) 0.1 x10^3/uL (0.0-0.2) Sodium Level 130 mmol/L (136-145) Potassium Level 4.3 mmol/L (3.5-5.1) Chloride Level 95 mmol/L (98-107) Carbon Dioxide Level 28 mmol/L (21-32) Anion Gap 7 (6-14) Blood Urea Nitrogen 18 mg/dL (8-26) Creatinine 1.1 mg/dL (0.7-1.3) Estimated GFR (Cockcroft-Gault) 67.6 BUN/Creatinine Ratio 16 (6-20) Glucose Level 217 mg/dL (70-99) Lactic Acid Level 2.2 mmol/L (0.4-2.0) 0.8 mmol/L (0.4-2.0) Calcium Level 9.2 mg/dL (8.5-10.1) Total Bilirubin 0.6 mg/dL (0.2-1.0) Aspartate Amino Transf (AST/SGOT) 9 U/L (15-37) Alanine Aminotransferase (ALT/SGPT) 20 U/L (16-63) Alkaline Phosphatase 89 U/L (46-116) Total Protein 7.7 g/dL (6.4-8.2) Albumin 3.3 g/dL (3.4-5.0) Albumin/Globulin Ratio 0.8 (1.0-1.7) Glucose (Fingerstick) 202 mg/dL (70-99) 227 mg/dL (70-99) Micro IMPRESSION: Soft tissue edema in the left mandibular region anterior and lateral to the masseter muscle which is associated with a area of focally decreased density medially measuring 1.5 x 0.9 x 2.1 cm in greatest dimensions which may reflect an associated abscess. Small reactive type lymph nodes in the submandibular region measuring up to 1.4 cm in size. Bilateral karen bullosa. Objective Assessment Fever Leukocytosis Left dental abscess H/o MRSA ? CKD DM Plan Plan of Care Given Health care exposure add Zosyn H/o MRSA add Zyvox IV and Dapto times one Blood cults Labs in am Await Dental eval Thank you # [id number] NADIA STEVENSON MD Mar 21, 2020 08:07
[2020-03-21] MEDS: BACLOFEN 10 MG TABLET. PO SCH ×3 (08:59→20:43)
[2020-03-21] MEDS: CLOPIDOGREL BISULFATE 75 MG TABLET PO SCH (08:59)
[2020-03-21] MEDS: PANTOPRAZOLE 40 MG TABLET.DR. PO SCH (09:00)
[2020-03-21] MEDS: FUROSEMIDE 40 MG TABLET. PO SCH (09:00)
[2020-03-21] MEDS: CITALOPRAM 20 MG TABLET. PO SCH (09:00)
[2020-03-21] MEDS: METOPROLOL SUCC 24HR ER 25 MG TAB.ER.24H. PO SCH (09:00)
[2020-03-21] MEDS: APIXABAN 5 MG TABLET. PO SCH ×2 (09:00→20:44)
[2020-03-21] MEDS: NYSTATIN 100,000 UNIT/GM TOPICAL OINTMENT 15GM TUBE. TP SCH ×4 (09:13→20:44)
[2020-03-21] MEDS ORDERED: DAPTOmycin (GENERIC) IVPB 550 MG in IV NORMAL SALINE 50ML 50 ML IV ONE (10:00)
[2020-03-21 11:00] VITALS: BP 107/56
--- NOTE | 2020-03-21 11:46 | HP ---
ADMIT DATE: 03/20/2020 CHIEF COMPLAINT AND HISTORY OF PRESENT ILLNESS: This 64-year-old white male presented to the Emergency Room with dental pain on the left that has been going on for a few days, but then started developing left sided facial swelling and redness. He states that any fever type stuff he may have felt was just in the jaw and really did not feel systemically bad with this. He rated his pain at 9/10. He has been able to eat with the same. He was admitted for IV antibiotics with dental evaluation to take place with fairly significant leukocytosis of 15,000. PAST MEDICAL HISTORY: Remarkable for diabetes, CVA, GERD, hyperlipidemia, hypertension. PAST SURGICAL HISTORY: Remarkable for bilateral cataract extractions. MEDICATIONS: Brought with the patient, listed on computer and have been addressed. ALLERGIES: He has no known drug allergies. SOCIAL HISTORY: He is a former smoker, nondrinker, does not use drugs. , lives at home with his . FAMILY HISTORY: Noncontributory. REVIEW OF SYSTEMS: As mentioned above. PHYSICAL EXAMINATION: GENERAL: He is a well-developed, well-nourished white male, in no acute distress. VITAL SIGNS: Stable. He has had a temperature up to 100.8 since admission. HEAD, EYES, EARS, NOSE AND THROAT: Remarkable for left mandibular swelling and tenderness. NECK: Supple, without adenopathy or thyromegaly. CHEST: Clear to auscultation and percussion. HEART: Regular rate and rhythm without S3, S4 or murmur. ABDOMEN: Soft, nontender, without hepatosplenomegaly or mass. EXTREMITIES: Without cyanosis, clubbing, edema. NEUROLOGIC: Nonfocal. LABORATORY AND DIAGNOSTIC DATA: Again, initial white count is remarkable for 15,000 with a left shift. Sodium is a little bit low at 130. Imaging shows soft tissue edema in the left mandibular region anterior and lateral to the masseter muscle, which is associated with an area of focally decreased density medially measuring 1.5 x 0.9 x 2.1 cm in greatest dimensions, may reflect an associated abscess. There were some small reactive lymph nodes in the submandibular region measuring up to 1.4 cm in size. IMPRESSION: Left dental abscess with leukocytosis, fever. ADDITIONAL DIAGNOSES: Diabetes, status post cerebrovascular accident, hypertension. PLAN: Continue IV antibiotics. ID has been consulted. He will likely need a dental evaluation before this is over or Interventional Radiology to drain the abscess possibly. CHAO BO MD DR: CELESTE/kristina JOB#: [id number] / [id number]
[2020-03-21] MEDS: PIPERACILLIN/TAZOBACTAM 3.375 GM in IV NORMAL SALINE 50ML 50 ML IV SCH ×3 (11:58→23:24)
[2020-03-21 15:00] VITALS: BP 126/69
[2020-03-21 19:00] VITALS: BP 116/66
[2020-03-21] MEDS: LACTOBACILLUS RHAMNOSUS GG 1 CAPSULE. PO SCH (20:44)
[2020-03-21] MEDS: ATORVASTATIN CALCIUM 40 MG TABLET. PO SCH (20:44)
[2020-03-21 23:00] VITALS: BP 126/61
[2020-03-22 03:01] VITALS: BP 110/69
[2020-03-22] MEDS: PIPERACILLIN/TAZOBACTAM 3.375 GM in IV NORMAL SALINE 50ML 50 ML IV SCH ×4 (06:32→23:35)
[2020-03-22 07:00] VITALS: BP 137/82
--- NOTE | 2020-03-22 08:05 | PDOC ---
SUBJECTIVE Subjective No acute events. No new concerns. OBJECTIVE Objective Reviewed. Vital Signs Vital Signs Date Time Temp Pulse Resp B/P (MAP) Pulse Ox O2 Delivery O2 Flow Rate FiO2 03/22/20 03:01 98.3 90 18 110/69 (83) 95 Room Air 98.3 03/21/20 23:00 98.1 91 20 126/61 (82) 97 Room Air 98.1 03/21/20 19:00 98.4 83 20 116/66 (83) 96 Room Air 98.4 03/21/20 15:00 98.6 88 16 126/69 (88) 93 Room Air 98.6 03/21/20 11:00 99.0 94 18 107/56 (73) 95 Room Air 99.0 03/21/20 09:00 96 109/67 03/21/20 08:00 Room Air I & O Intake and Output 03/22/20 07:00 Intake Total 340 ml Output Total 1050 ml Balance -710 ml Intake Oral 340 ml Output Urine Total 1050 ml # Bowel Movements 3 PHYSICAL EXAM Physical Exam Alert, oriented Large swelling of the left lower jaw with fluctuance RRR CTAB 1-2+ pitting edema in b/l LEs L hemiparesis chronically ASSESSMENT/PLAN Assessment/Plan Sepsis 2/2 L dental abscess Type 2 Diabetes H/o CVA w/ L sided hemiparesis GERD HLD HTN Paroxysmal afib Anxiety Abx per ID Cx pending Holding antihypertensives and metformin pending BP improvement and repeat Cr May need IR to drain abscess COMMENT Lab Laboratory Tests Test 03/21/20 08:10 03/21/20 11:59 03/21/20 17:09 03/21/20 20:41 Glucose (Fingerstick) 186 mg/dL (70-99) 182 mg/dL (70-99) 174 mg/dL (70-99) 154 mg/dL (70-99) Test 03/22/20 07:17 Glucose (Fingerstick) 219 mg/dL (70-99) Justifications for Admission Other Justification VY MCDOWELL MD Mar 22, 2020 08:05
[2020-03-22 08:36] LABS: BASO # 0.1 x10^3/uL (0.0-0.2); BASO % 1 % (0-3); EOS # 0.3 x10^3/uL (0.0-0.7); EOS % 2 % (0-3); HEMATOCRIT 35.6 % (39.0-53.0); HEMOGLOBIN 11.6 g/dL (13.0-17.5); LYMPH # 1.4 x10^3/uL (1.0-4.8); LYMPH % 11 % (24-48); MEAN CORPUSCULAR HEMOGLOBIN 28 pg (25-35); MEAN CORPUSCULAR HGB CONC 33 g/dL (31-37); MEAN CORPUSCULAR VOLUME 87 fL (79-100); MONO # 1.3 x10^3/uL (0.0-1.1); MONO % 10 % (0-9); NEUT # 10.6 x10^3/uL (1.8-7.7); NEUT % 77 % (31-73); PLATELET COUNT 233 x10^3/uL (140-400); RED BLOOD COUNT 4.11 x10^6/uL (4.30-5.70); RED CELL DISTRIBUTION WIDTH 15.6 % (11.5-14.5); WHITE BLOOD COUNT 13.7 x10^3/uL (4.0-11.0)
[2020-03-22] MEDS: BACLOFEN 10 MG TABLET. PO SCH ×3 (08:43→20:39)
[2020-03-22] MEDS: CLOPIDOGREL BISULFATE 75 MG TABLET PO SCH (08:43)
[2020-03-22] MEDS: FUROSEMIDE 40 MG TABLET. PO SCH (08:43)
[2020-03-22] MEDS: APIXABAN 5 MG TABLET. PO SCH ×2 (08:43→20:39)
[2020-03-22] MEDS: LACTOBACILLUS RHAMNOSUS GG 1 CAPSULE. PO SCH ×2 (08:43→20:39)
[2020-03-22] MEDS: PANTOPRAZOLE 40 MG TABLET.DR. PO SCH (08:43)
[2020-03-22] MEDS: METOPROLOL SUCC 24HR ER 25 MG TAB.ER.24H. PO SCH (08:43)
[2020-03-22] MEDS: CITALOPRAM 20 MG TABLET. PO SCH (08:43)
--- NOTE | 2020-03-22 08:43 | CONS ---
DATE OF CONSULTATION: 03/21/2020 PATIENT'S ROOM: 519. REQUESTING PHYSICIAN: Vivian Jones MD REASON FOR CONSULTATION: Dental abscess. HISTORY OF PRESENT ILLNESS: The patient is a pleasant 64-year-old gentleman with a history of previous CVA with residual left-sided weakness and diabetes, who for the past week states he developed onset of left facial swelling, denies any trauma. He has not taken any antibiotics over the course of the week, but has taken some pain medications. He denies any fevers or chills or sweats or gross body aches, but he did present to [facility] on 03/20/2020. He did have a temp as high as 100.8 overnight. White blood cell count was 15.1 on arrival. Creatinine was 1.1 with GFR 67.6, glucose of 217. Underwent a CT of the maxillofacial area and had soft tissue edema in the left mandibular region anterior and lateral to the masseter. There is an area of focally decreased density medially 1.5 x 0.9 x 2.1, may reflect associated dental abscess. He has some small reactive lymph nodes in the submandibular area, 1.4 cm in size. Of note, he did have a CT scan of his head performed on 02/27/2020. Had some mild maxillary sinus mucosal thickening with obstruction of the right ostiomeatal unit, but no evidence of acute sinusitis. At that point, he was seen in the Emergency Room for a mechanical fall. Currently, the patient is sitting in chair. He is drinking. He states he feels somewhat better. Denies known fevers, chills, or sweats. He has no gross headaches. No sore throat. No breathing problems. No nausea, vomiting, diarrhea, cramps, dysuria, frequency or urgency. PAST MEDICAL HISTORY: Positive for prior CVA with left-sided weakness, history of atrial fibrillation, diabetes. Does have a history of an abscess that had MRSA, Aerococcus and group B strep. REVIEW OF SYSTEMS: Otherwise negative. ALLERGIES: No known drug allergies. SOCIAL HISTORY: He quit smoking. He is . He is disabled. He has 2 dogs and 2 cats, but denies any trauma. FAMILY HISTORY: Noncontributory. CURRENT MEDICATIONS: He received a dose of clindamycin and a dose of Zosyn. He is on Eliquis, Lipitor, baclofen, Celexa, metoprolol, nystatin, and Protonix. PHYSICAL EXAMINATION: VITAL SIGNS: T-max of 100.8; currently 98.4, pulse 98, respirations 20, blood pressure 104/47, satting 92% on room air. CONSTITUTIONAL: He is sitting in a wheelchair. He looks cooperative. He is in no acute distress. HEENT: Pupils equal and reactive. He has normal conjunctivae. Left-sided facial area is swollen. There is no gross erythema. He can open his mouth, but not to a full range. There is some tenderness. NECK: Supple, no swelling. No wheezing or stridor. LUNGS: Clear to auscultation. HEART: S1, S2. ABDOMEN: Obese, soft, nontender, nondistended with positive bowel sounds. EXTREMITIES: Without clubbing, cyanosis nor gross edema. SKIN: Warm to touch without generalized signs of rash. NEUROLOGIC: He is nonfocal, does have some left-sided deficits. PSYCHIATRIC: Affect is somewhat flat, but appropriate. LABORATORY VALUES: White count 15.1, hemoglobin 12.1, platelets of 267, neutrophils 82, lymphs were 9. Creatinine was 1.1. Glucose was 217 with normal liver function study tests. RADIOLOGY: Reviewed in the history of present illness. IMPRESSION: 1. Fever. 2. Leukocytosis. 3. Left dental abscess. 4. History of methicillin-resistant Staphylococcus aureus. 5. Questionable chronic kidney disease. 6. Diabetes. RECOMMENDATIONS: Given healthcare exposure, we will add Zosyn. History of MRSA, we will add Zyvox IV, but dapto x 1. Obtain blood cultures with followup labs. Await Dental eval. This was discussed with nursing. Thank you for the patient's care. If you have any questions, please do not hesitate to contact me. NADIA STEVENSON MD DR: ORESTES/kristina JOB#: [id number] / [id number] LALO
[2020-03-22] MEDS: NYSTATIN 100,000 UNIT/GM TOPICAL OINTMENT 15GM TUBE. TP SCH ×4 (09:00→20:00)
--- NOTE | 2020-03-22 09:02 | PDOC ---
Infectious Disease Note Subjective Subjective Patient is feeling little better ROS ROS No nausea vomiting diarrhea Vital Sign Vital Signs Vital Signs Date Time Temp Pulse Resp B/P (MAP) Pulse Ox O2 Delivery O2 Flow Rate FiO2 03/22/20 08:43 90 137/82 03/22/20 07:00 98.0 20 97 Room Air 98.0 Physical Exam PHYSICAL EXAM CONSTITUTIONAL: He is sitting in a wheelchair. He looks cooperative. He is in no acute distress. HEENT: Pupils equal and reactive. He has normal conjunctivae. Left-sided facial area is swollen. There is no gross erythema. He can open his mouth, but not to a full range. There is some tenderness. NECK: Supple, no swelling. No wheezing or stridor. LUNGS: Clear to auscultation. HEART: S1, S2. ABDOMEN: Obese, soft, nontender, nondistended with positive bowel sounds. EXTREMITIES: Without clubbing, cyanosis nor gross edema. SKIN: Warm to touch without generalized signs of rash. NEUROLOGIC: He is nonfocal, does have some left-sided deficits. PSYCHIATRIC: Affect is somewhat flat, but appropriate. Labs Lab Laboratory Tests Test 03/21/20 11:59 03/21/20 17:09 03/21/20 20:41 03/22/20 07:17 Glucose (Fingerstick) 182 mg/dL (70-99) 174 mg/dL (70-99) 154 mg/dL (70-99) 219 mg/dL (70-99) Test 03/22/20 07:55 White Blood Count 13.7 x10^3/uL (4.0-11.0) Red Blood Count 4.11 x10^6/uL (4.30-5.70) Hemoglobin 11.6 g/dL (13.0-17.5) Hematocrit 35.6 % (39.0-53.0) Mean Corpuscular Volume 87 fL (79-100) Mean Corpuscular Hemoglobin 28 pg (25-35) Mean Corpuscular Hemoglobin Concent 33 g/dL (31-37) Red Cell Distribution Width 15.6 % (11.5-14.5) Platelet Count 233 x10^3/uL (140-400) Neutrophils (%) (Auto) 77 % (31-73) Lymphocytes (%) (Auto) 11 % (24-48) Monocytes (%) (Auto) 10 % (0-9) Eosinophils (%) (Auto) 2 % (0-3) Basophils (%) (Auto) 1 % (0-3) Neutrophils # (Auto) 10.6 x10^3/uL (1.8-7.7) Lymphocytes # (Auto) 1.4 x10^3/uL (1.0-4.8) Monocytes # (Auto) 1.3 x10^3/uL (0.0-1.1) Eosinophils # (Auto) 0.3 x10^3/uL (0.0-0.7) Basophils # (Auto) 0.1 x10^3/uL (0.0-0.2) Micro Microbiology 03/20/20 Blood Culture - Preliminary, Resulted NO GROWTH AFTER 1 DAY Objective Assessment IMPRESSION: 1. Fever. 2. Leukocytosis. 3. Left dental abscess. 4. History of methicillin-resistant Staphylococcus aureus. 5. Questionable chronic kidney disease. 6. Diabetes. Plan Plan of Care Continue antibiotics Continue supportive care Consult oropharyngeal surgeon MAI PETERS MD Mar 22, 2020 09:02
[2020-03-22 09:09] LABS: CALCIUM 9.3 mg/dL (8.5-10.1); CREATININE 1.1 mg/dL (0.7-1.3); GFR 67.6; POTASSIUM 3.7 mmol/L (3.5-5.1)
[2020-03-22 11:14] VITALS: BP 149/82
--- NOTE | 2020-03-22 11:38 | NUR ---
SW following. Discussed with RN, pt from home, room air, ada diet. Pt on IV abx. SW will continue to follow.
[2020-03-22 15:00] VITALS: BP 113/68
[2020-03-22 19:00] VITALS: BP 123/74
[2020-03-22] MEDS: ZOLPIDEM 5 MG TABLET. PO PRN (20:39)
[2020-03-22] MEDS: ATORVASTATIN CALCIUM 40 MG TABLET. PO SCH (20:39)
[2020-03-22 23:00] VITALS: BP 120/71
[2020-03-23 03:00] VITALS: BP 122/59
[2020-03-23] MEDS: PIPERACILLIN/TAZOBACTAM 3.375 GM in IV NORMAL SALINE 50ML 50 ML IV SCH ×3 (05:53→17:38)
[2020-03-23 07:00] VITALS: BP 137/72
[2020-03-23 07:22] LABS: BASO # 0.1 x10^3/uL (0.0-0.2); BASO % 1 % (0-3); EOS # 0.3 x10^3/uL (0.0-0.7); EOS % 3 % (0-3); HEMOGLOBIN 11.1 g/dL (13.0-17.5); LYMPH # 1.6 x10^3/uL (1.0-4.8); LYMPH % 16 % (24-48); MEAN CORPUSCULAR HEMOGLOBIN 30 pg (25-35); MEAN CORPUSCULAR HGB CONC 35 g/dL (31-37); MEAN CORPUSCULAR VOLUME 86 fL (79-100); MONO # 0.7 x10^3/uL (0.0-1.1); MONO % 7 % (0-9); NEUT # 7.6 x10^3/uL (1.8-7.7); NEUT % 74 % (31-73); PLATELET COUNT 237 x10^3/uL (140-400); RED BLOOD COUNT 3.72 x10^6/uL (4.30-5.70); RED CELL DISTRIBUTION WIDTH 15.2 % (11.5-14.5); WHITE BLOOD COUNT 10.2 x10^3/uL (4.0-11.0)
[2020-03-23 07:44] LABS: CALCIUM 8.8 mg/dL (8.5-10.1); CREATININE 1.1 mg/dL (0.7-1.3); GFR 67.6; POTASSIUM 3.6 mmol/L (3.5-5.1)
--- NOTE | 2020-03-23 07:49 | PDOC ---
SUBJECTIVE Subjective Pain and swelling improving. OBJECTIVE Objective Reviewed. Vital Signs Vital Signs Date Time Temp Pulse Resp B/P (MAP) Pulse Ox O2 Delivery O2 Flow Rate FiO2 03/23/20 03:00 97.7 95 18 122/59 (80) 92 97.7 03/22/20 23:00 97.9 98 20 120/71 (87) 91 97.9 03/22/20 19:05 Room Air 03/22/20 19:00 97.8 97 18 123/74 (90) 94 97.8 03/22/20 15:00 99.2 101 18 113/68 (83) 94 Room Air 99.2 03/22/20 11:14 98.1 91 20 149/82 (104) 97 Room Air 98.1 03/22/20 08:43 90 137/82 03/22/20 08:00 Room Air I & O Intake and Output 03/23/20 07:00 Intake Total 1570 ml Output Total 1050 ml Balance 520 ml Intake Oral 1120 ml IV Total 450 ml Output Urine Total 1050 ml # Voids 1 # Bowel Movements 4 PHYSICAL EXAM Physical Exam Alert, oriented Large swelling of the left lower jaw with fluctuance, decreased somewhat today RRR CTAB 1-2+ pitting edema in b/l LEs L hemiparesis chronically ASSESSMENT/PLAN Assessment/Plan Sepsis 2/2 L dental abscess Type 2 Diabetes Hyponatremia, likely related to HCTZ H/o CVA w/ L sided hemiparesis GERD HLD HTN Paroxysmal afib Anxiety Abx per ID Bld Cx NTD Holding antihypertensives pending BP improvement Stop HCTZ given hypoNa+, when bp improves resume lisinopril only Await oropharyngeal surgeon input May need IR to drain abscess PT/OT COMMENT Lab Laboratory Tests Test 03/22/20 07:55 03/22/20 10:56 03/22/20 16:59 03/22/20 20:39 White Blood Count 13.7 x10^3/uL (4.0-11.0) Red Blood Count 4.11 x10^6/uL (4.30-5.70) Hemoglobin 11.6 g/dL (13.0-17.5) Hematocrit 35.6 % (39.0-53.0) Mean Corpuscular Volume 87 fL (79-100) Mean Corpuscular Hemoglobin 28 pg (25-35) Mean Corpuscular Hemoglobin Concent 33 g/dL (31-37) Red Cell Distribution Width 15.6 % (11.5-14.5) Platelet Count 233 x10^3/uL (140-400) Neutrophils (%) (Auto) 77 % (31-73) Lymphocytes (%) (Auto) 11 % (24-48) Monocytes (%) (Auto) 10 % (0-9) Eosinophils (%) (Auto) 2 % (0-3) Basophils (%) (Auto) 1 % (0-3) Neutrophils # (Auto) 10.6 x10^3/uL (1.8-7.7) Lymphocytes # (Auto) 1.4 x10^3/uL (1.0-4.8) Monocytes # (Auto) 1.3 x10^3/uL (0.0-1.1) Eosinophils # (Auto) 0.3 x10^3/uL (0.0-0.7) Basophils # (Auto) 0.1 x10^3/uL (0.0-0.2) Sodium Level 131 mmol/L (136-145) Potassium Level 3.7 mmol/L (3.5-5.1) Chloride Level 96 mmol/L (98-107) Carbon Dioxide Level 22 mmol/L (21-32) Anion Gap 13 (6-14) Blood Urea Nitrogen 17 mg/dL (8-26) Creatinine 1.1 mg/dL (0.7-1.3) Estimated GFR (Cockcroft-Gault) 67.6 Glucose Level 177 mg/dL (70-99) Calcium Level 9.3 mg/dL (8.5-10.1) Glucose (Fingerstick) 220 mg/dL (70-99) 149 mg/dL (70-99) 199 mg/dL (70-99) Test 03/23/20 06:40 03/23/20 07:05 White Blood Count 10.2 x10^3/uL (4.0-11.0) Red Blood Count 3.72 x10^6/uL (4.30-5.70) Hemoglobin 11.1 g/dL (13.0-17.5) Hematocrit 32.0 % (39.0-53.0) Mean Corpuscular Volume 86 fL (79-100) Mean Corpuscular Hemoglobin 30 pg (25-35) Mean Corpuscular Hemoglobin Concent 35 g/dL (31-37) Red Cell Distribution Width 15.2 % (11.5-14.5) Platelet Count 237 x10^3/uL (140-400) Neutrophils (%) (Auto) 74 % (31-73) Lymphocytes (%) (Auto) 16 % (24-48) Monocytes (%) (Auto) 7 % (0-9) Eosinophils (%) (Auto) 3 % (0-3) Basophils (%) (Auto) 1 % (0-3) Neutrophils # (Auto) 7.6 x10^3/uL (1.8-7.7) Lymphocytes # (Auto) 1.6 x10^3/uL (1.0-4.8) Monocytes # (Auto) 0.7 x10^3/uL (0.0-1.1) Eosinophils # (Auto) 0.3 x10^3/uL (0.0-0.7) Basophils # (Auto) 0.1 x10^3/uL (0.0-0.2) Glucose (Fingerstick) 223 mg/dL (70-99) Justifications for Admission Other Justification VY MCDOWELL MD Mar 23, 2020 07:49
[2020-03-23] MEDS: PANTOPRAZOLE 40 MG TABLET.DR. PO SCH (08:11)
[2020-03-23] MEDS: metFORMIN 500 MG TABLET PO SCH ×2 (08:11→20:52)
[2020-03-23] MEDS: CITALOPRAM 20 MG TABLET. PO SCH (08:11)
[2020-03-23] MEDS: CLOPIDOGREL BISULFATE 75 MG TABLET PO SCH (08:12)
[2020-03-23] MEDS: LACTOBACILLUS RHAMNOSUS GG 1 CAPSULE. PO SCH ×2 (08:12→20:52)
[2020-03-23] MEDS: BACLOFEN 10 MG TABLET. PO SCH ×3 (08:12→20:52)
[2020-03-23] MEDS: METOPROLOL SUCC 24HR ER 25 MG TAB.ER.24H. PO SCH (08:12)
[2020-03-23] MEDS: APIXABAN 5 MG TABLET. PO SCH ×2 (08:12→20:52)
[2020-03-23] MEDS: FUROSEMIDE 40 MG TABLET. PO SCH (08:12)
[2020-03-23] MEDS: NYSTATIN 100,000 UNIT/GM TOPICAL OINTMENT 15GM TUBE. TP SCH ×4 (09:00→20:52)
--- NOTE | 2020-03-23 09:00 | PDOC ---
Infectious Disease Note Subjective Subjective Patient is feeling little better ROS ROS No nausea vomiting Vital Sign Vital Signs Vital Signs Date Time Temp Pulse Resp B/P (MAP) Pulse Ox O2 Delivery O2 Flow Rate FiO2 03/23/20 08:12 87 137/72 03/23/20 07:00 98.4 18 90 Room Air 98.4 Physical Exam PHYSICAL EXAM CONSTITUTIONAL: He is sitting in a wheelchair. He looks cooperative. He is in no acute distress. HEENT: Pupils equal and reactive. He has normal conjunctivae. Left-sided facial area is swollen. There is no gross erythema. He can open his mouth, but not to a full range. There is some tenderness. NECK: Supple, no swelling. No wheezing or stridor. LUNGS: Clear to auscultation. HEART: S1, S2. ABDOMEN: Obese, soft, nontender, nondistended with positive bowel sounds. EXTREMITIES: Without clubbing, cyanosis nor gross edema. SKIN: Warm to touch without generalized signs of rash. NEUROLOGIC: He is nonfocal, does have some left-sided deficits. PSYCHIATRIC: Affect is somewhat flat, but appropriate. Labs Lab Laboratory Tests Test 03/22/20 10:56 03/22/20 16:59 03/22/20 20:39 03/23/20 06:40 Glucose (Fingerstick) 220 mg/dL (70-99) 149 mg/dL (70-99) 199 mg/dL (70-99) White Blood Count 10.2 x10^3/uL (4.0-11.0) Red Blood Count 3.72 x10^6/uL (4.30-5.70) Hemoglobin 11.1 g/dL (13.0-17.5) Hematocrit 32.0 % (39.0-53.0) Mean Corpuscular Volume 86 fL (79-100) Mean Corpuscular Hemoglobin 30 pg (25-35) Mean Corpuscular Hemoglobin Concent 35 g/dL (31-37) Red Cell Distribution Width 15.2 % (11.5-14.5) Platelet Count 237 x10^3/uL (140-400) Neutrophils (%) (Auto) 74 % (31-73) Lymphocytes (%) (Auto) 16 % (24-48) Monocytes (%) (Auto) 7 % (0-9) Eosinophils (%) (Auto) 3 % (0-3) Basophils (%) (Auto) 1 % (0-3) Neutrophils # (Auto) 7.6 x10^3/uL (1.8-7.7) Lymphocytes # (Auto) 1.6 x10^3/uL (1.0-4.8) Monocytes # (Auto) 0.7 x10^3/uL (0.0-1.1) Eosinophils # (Auto) 0.3 x10^3/uL (0.0-0.7) Basophils # (Auto) 0.1 x10^3/uL (0.0-0.2) Sodium Level 137 mmol/L (136-145) Potassium Level 3.6 mmol/L (3.5-5.1) Chloride Level 100 mmol/L (98-107) Carbon Dioxide Level 27 mmol/L (21-32) Anion Gap 10 (6-14) Blood Urea Nitrogen 13 mg/dL (8-26) Creatinine 1.1 mg/dL (0.7-1.3) Estimated GFR (Cockcroft-Gault) 67.6 Glucose Level 201 mg/dL (70-99) Calcium Level 8.8 mg/dL (8.5-10.1) Test 03/23/20 07:05 Glucose (Fingerstick) 223 mg/dL (70-99) Micro Microbiology 03/20/20 Blood Culture - Preliminary, Resulted NO GROWTH AFTER 1 DAY Objective Assessment IMPRESSION: 1. Fever. 2. Leukocytosis. 3. Left dental abscess. 4. History of methicillin-resistant Staphylococcus aureus. 5. Questionable chronic kidney disease. 6. Diabetes. Plan Plan of Care Continue antibiotics Continue supportive care Consult oropharyngeal surgeon MAI PETERS MD Mar 23, 2020 09:00
[2020-03-23 10:47] VITALS: BP 118/69
--- NOTE | 2020-03-23 12:38 | NUR ---
[facility] following for discharge planning. Spoke with RN and reviewed chart. [facility] met with pt today. Pt from home with and son. PT recommendation is home with assistance. Pt agreeable to and stated no preference in provider. Referral to Kimberly with [facility]. Pt choice of vendor form completed. Pt remains on IV Zosyn and room air. IR possibly to drain abscess. [facility] following. Addendum: 03/23/20 at 1250 by DANYELL MEYERS [facility] out of network. Referral sent to [facility] Addendum: 03/23/20 at 1458 by DANYELL MEYERS Pt declined by [facility] and [facility]. Referral faxed to RAJAN Alvarez and [facility]. Addendum: 03/23/20 at 1648 by DANYELL MEYERS Pt denied by Kim [facility]WODEN, [facility] and [facility].
[2020-03-23 15:00] VITALS: BP 147/71
[2020-03-23] MEDS: VANCOMYCIN 125 MG/2.5 ML ORAL SOLUTION. PO SCH ×2 (17:32→20:51)
[2020-03-23 19:00] VITALS: BP 144/83
[2020-03-23] MEDS: ATORVASTATIN CALCIUM 40 MG TABLET. PO SCH (20:51)
[2020-03-23] MEDS: ZOLPIDEM 5 MG TABLET. PO PRN ×2 (20:52→21:55)
[2020-03-23 23:00] VITALS: BP 131/70
[2020-03-24] MEDS: PIPERACILLIN/TAZOBACTAM 3.375 GM in IV NORMAL SALINE 50ML 50 ML IV SCH ×3 (00:05→12:45)
[2020-03-24 03:00] VITALS: BP 122/71
[2020-03-24 07:00] VITALS: BP 133/83
--- NOTE | 2020-03-24 07:45 | PDOC ---
SUBJECTIVE Subjective Cdiff + yesterday. Abscess improving on abx. Nursing having difficulty getting ahold of oropharyneal surgeon. IR not interested in draining abscess. OBJECTIVE Objective Reviewed Vital Signs Vital Signs Date Time Temp Pulse Resp B/P (MAP) Pulse Ox O2 Delivery O2 Flow Rate FiO2 03/24/20 03:00 98.8 85 20 122/71 (88) 95 Room Air 98.8 03/23/20 23:00 98.8 79 20 131/70 (90) 96 Room Air 98.8 03/23/20 19:00 98.7 85 22 144/83 (103) 96 Room Air 98.7 03/23/20 15:00 98.1 92 18 147/71 (96) 98 98.1 03/23/20 10:47 98.6 83 18 118/69 (85) 93 Room Air 98.6 03/23/20 08:12 87 137/72 03/23/20 08:00 Room Air I & O Intake and Output 03/24/20 07:00 Intake Total 640 ml Output Total 1050 ml Balance -410 ml Intake Oral 640 ml Output Urine Total 1050 ml # Bowel Movements 2 PHYSICAL EXAM Physical Exam Alert, oriented Large swelling of the left lower jaw with fluctuance, decreased somewhat today RRR CTAB 1-2+ pitting edema in b/l LEs L hemiparesis chronically ASSESSMENT/PLAN Assessment/Plan Sepsis 2/2 L dental abscess Type 2 Diabetes Hyponatremia, likely related to HCTZ, resolved Cdiff, on PO vanc since 2/2 H/o CVA w/ L sided hemiparesis GERD HLD HTN Paroxysmal afib Anxiety Abx per ID Bld Cx NTD Holding antihypertensives pending BP improvement Stopped HCTZ given hypoNa+, when bp improves resume lisinopril only Await oropharyngeal surgeon input, nursing having difficulty reaching someone COMMENT Lab Laboratory Tests Test 03/23/20 11:35 03/23/20 16:50 03/23/20 20:31 03/24/20 07:14 Glucose (Fingerstick) 239 mg/dL (70-99) 170 mg/dL (70-99) 207 mg/dL (70-99) 169 mg/dL (70-99) Justifications for Admission Other Justification VY MCDOWELL MD Mar 24, 2020 07:45
[2020-03-24] MEDS: CLOPIDOGREL BISULFATE 75 MG TABLET PO SCH (08:08)
[2020-03-24] MEDS: BACLOFEN 10 MG TABLET. PO SCH ×2 (08:09→12:54)
[2020-03-24] MEDS: metFORMIN 500 MG TABLET PO SCH (08:09)
[2020-03-24] MEDS: FUROSEMIDE 40 MG TABLET. PO SCH (08:09)
[2020-03-24] MEDS: LACTOBACILLUS RHAMNOSUS GG 1 CAPSULE. PO SCH (08:09)
[2020-03-24] MEDS: VANCOMYCIN 125 MG/2.5 ML ORAL SOLUTION. PO SCH ×2 (08:11→12:45)
[2020-03-24] MEDS: CITALOPRAM 20 MG TABLET. PO SCH (08:12)
[2020-03-24] MEDS: METOPROLOL SUCC 24HR ER 25 MG TAB.ER.24H. PO SCH (08:12)
[2020-03-24] MEDS: APIXABAN 5 MG TABLET. PO SCH (08:12)
[2020-03-24] MEDS: PANTOPRAZOLE 40 MG TABLET.DR. PO SCH (08:12)
[2020-03-24] MEDS: NYSTATIN 100,000 UNIT/GM TOPICAL OINTMENT 15GM TUBE. TP SCH ×2 (08:13→12:53)
--- NOTE | 2020-03-24 08:35 | PDOC ---
Provider Note Date of Service: DATE: 03/24/20 TIME: 08:33 Provider Note IR NOTE 64 year old male with probably small periodontal abscess and left facial cellulitis/edema. No IR intervention indication. Recommend patient be seen by a dentist/oral surgeon. Justifications for Admission Other Justification GUSTAVO ALFARO MD Mar 24, 2020 08:35
--- NOTE | 2020-03-24 09:34 | NUR ---
[facility] following. Discussed with RN, pt from home, room air, ada diet. RN's attempting to contact dental surgeon, however have been unsuccessful so far. [facility] See working on home health for pt, PT/OT recommending home with assistance. No home health has been able to accept pt so far. Pt will need to go home with self care, or can be given a script for outpatient therapy and find a therapy office in network with his insurance. RN notified. [facility] will continue to follow.
--- NOTE | 2020-03-24 10:29 | PDOC ---
Infectious Disease Note Subjective Subjective Patient is feeling little better Loose stools x2 a day ROS ROS No nausea vomiting no abdominal pain Vital Sign Vital Signs Vital Signs Date Time Temp Pulse Resp B/P (MAP) Pulse Ox O2 Delivery O2 Flow Rate FiO2 03/24/20 08:12 83 133/83 03/24/20 07:00 96.8 18 94 Room Air 96.8 Physical Exam PHYSICAL EXAM CONSTITUTIONAL: He is sitting in a wheelchair. He looks cooperative. He is in no acute distress. HEENT: Pupils equal and reactive. He has normal conjunctivae. Left-sided facial area is swollen. There is no gross erythema. He can open his mouth, but not to a full range. There is some tenderness. NECK: Supple, no swelling. No wheezing or stridor. LUNGS: Clear to auscultation. HEART: S1, S2. ABDOMEN: Obese, soft, nontender, nondistended with positive bowel sounds. EXTREMITIES: Without clubbing, cyanosis nor gross edema. SKIN: Warm to touch without generalized signs of rash. NEUROLOGIC: He is nonfocal, does have some left-sided deficits. PSYCHIATRIC: Affect is somewhat flat, but appropriate. Labs Lab Laboratory Tests Test 03/23/20 11:35 03/23/20 16:50 03/23/20 20:31 03/24/20 07:14 Glucose (Fingerstick) 239 mg/dL (70-99) 170 mg/dL (70-99) 207 mg/dL (70-99) 169 mg/dL (70-99) Micro Microbiology 03/20/20 Blood Culture - Preliminary, Resulted NO GROWTH AFTER 1 DAY Objective Assessment IMPRESSION: 1. Fever. 2. Leukocytosis. 3. Left dental abscess. 4. History of methicillin-resistant Staphylococcus aureus. 5. Questionable chronic kidney disease. 6. Diabetes. 7 C. difficile Plan Plan of Care Oropharyngeal surgeon input is pending Mouth infection or teeth infection is looking much better Patient can be discharged on p.o. Augmentin and p.o. vancomycin to have follow- up with oropharyngeal surgery MAI PETERS MD Mar 24, 2020 10:29
[2020-03-24 10:36] VITALS: BP 140/78
[2020-03-24 15:00] VITALS: BP 138/89
[2020-03-24] MEDS ORDERED: AMOX1TAB61 PO (16:24)
[2020-03-24] MEDS ORDERED: VANC500V PO (16:24)
--- NOTE | 2020-03-24 16:31 | PDOC3 ---
Discharge Summary Date of Admission: Mar 21, 2020 Date of Discharge: Mar 24, 2020 Follow-Up: 3-5 days Admitting Diagnosis comment: Dental Abscess FINAL DIAGNOSIS Sepsis 2/2 L dental abscess Type 2 Diabetes Hyponatremia, likely related to HCTZ, resolved Cdiff H/o CVA w/ L sided hemiparesis GERD HLD HTN Paroxysmal afib Anxiety Brief Hospital Course Mr. Richard is a 64 year old male with multiple comorbidities who presented to ED for jaw pain/swelling and was found to have a large dental abscess with sepsis. He was treated with zosyn IV with improvement. An oropharyngeal consult was not able to be obtained inpatient, so the patient is encouraged to schedule an appt outpatient. He will be treated with augmentin at discharge for 7 more days. He was also found to have Cdiff. He received oral Vanc and will complete a 10 day course at home. Upon admission, his Na+ was low at 131. His blood pressure was borderline low, so lisinopril/hctz was held. I encouraged him to remain off of this until follow up at which time, we may resume lisinopril only. Na+ improved during admission. All other home medications will remain the same. CONDITION AT DISCHARGE: Improved, Stable Discharge Medications Omeprazole 20 Mg Capsule.dr 1 Cap PO DAILY MDD 20 Metoprolol Succinate ( Xl ) (Metoprolol Succinate) 25 Mg Tab.er.24h 1 Tab PO DAILY MDD 35 Lisinopril-Hctz 20-12.5 Mg Tab (Lisinopril/Hydrochlorothiazide) 1 Each Tablet 1 Tab PO DAILY MDD 20 Baclofen 10 Mg Tablet 1 Tab PO TID MDD 30 Clopidogrel (Clopidogrel Bisulfate) 75 Mg Tablet 1 Tab PO DAILY MDD 75 Escitalopram Oxalate 10 Mg Tablet 1 Tab PO DAILY MDD 10 Metformin Hcl 500 Mg Tablet 1 Tab PO BID MDD 1000 Atorvastatin Calcium 80 Mg Tablet 1 Tab PO DAILY MDD DAILY Eliquis (Apixaban) 5 Mg Tablet 1 Tab PO BID MDD 10 Furosemide 40 Mg Tablet 1 Tab PO DAILY MDD 40 Vancomycin 125mg PO QID to complete 10 days Augmentin 875/125mg PO BID x 7 days Vital Signs Vital Signs Date Time Temp Pulse Resp B/P (MAP) Pulse Ox O2 Delivery O2 Flow Rate FiO2 03/24/20 15:00 98.0 80 18 138/89 (105) 95 98.0 2/3/21 10:36 Room Air Labs Laboratory Tests Test 03/22/20 16:59 03/22/20 20:39 03/23/20 03:30 03/23/20 06:40 Glucose (Fingerstick) 149 mg/dL (70-99) 199 mg/dL (70-99) Clostridium difficile Toxin (PCR) Positive (NEGATIVE) White Blood Count 10.2 x10^3/uL (4.0-11.0) Red Blood Count 3.72 x10^6/uL (4.30-5.70) Hemoglobin 11.1 g/dL (13.0-17.5) Hematocrit 32.0 % (39.0-53.0) Mean Corpuscular Volume 86 fL (79-100) Mean Corpuscular Hemoglobin 30 pg (25-35) Mean Corpuscular Hemoglobin Concent 35 g/dL (31-37) Red Cell Distribution Width 15.2 % (11.5-14.5) Platelet Count 237 x10^3/uL (140-400) Neutrophils (%) (Auto) 74 % (31-73) Lymphocytes (%) (Auto) 16 % (24-48) Monocytes (%) (Auto) 7 % (0-9) Eosinophils (%) (Auto) 3 % (0-3) Basophils (%) (Auto) 1 % (0-3) Neutrophils # (Auto) 7.6 x10^3/uL (1.8-7.7) Lymphocytes # (Auto) 1.6 x10^3/uL (1.0-4.8) Monocytes # (Auto) 0.7 x10^3/uL (0.0-1.1) Eosinophils # (Auto) 0.3 x10^3/uL (0.0-0.7) Basophils # (Auto) 0.1 x10^3/uL (0.0-0.2) Sodium Level 137 mmol/L (136-145) Potassium Level 3.6 mmol/L (3.5-5.1) Chloride Level 100 mmol/L (98-107) Carbon Dioxide Level 27 mmol/L (21-32) Anion Gap 10 (6-14) Blood Urea Nitrogen 13 mg/dL (8-26) Creatinine 1.1 mg/dL (0.7-1.3) Estimated GFR (Cockcroft-Gault) 67.6 Glucose Level 201 mg/dL (70-99) Calcium Level 8.8 mg/dL (8.5-10.1) Test 03/23/20 07:05 03/23/20 11:35 03/23/20 16:50 03/23/20 20:31 Glucose (Fingerstick) 223 mg/dL (70-99) 239 mg/dL (70-99) 170 mg/dL (70-99) 207 mg/dL (70-99) Test 03/24/20 07:14 03/24/20 14:44 Glucose (Fingerstick) 169 mg/dL (70-99) 235 mg/dL (70-99) Laboratory Tests Test 03/23/20 16:50 03/23/20 20:31 03/24/20 07:14 03/24/20 14:44 Glucose (Fingerstick) 170 mg/dL (70-99) 207 mg/dL (70-99) 169 mg/dL (70-99) 235 mg/dL (70-99) Allergies Allergies Coded Allergies Type Severity Reaction Last Updated Verified I S O L A T I O N *CONTACT* Allergy Unknown 12/22/19 Yes No Known Medication Allergies Allergy Unknown 12/22/19 Yes Disposition/Orders: D/C to Home Justicifation of Admission Dx: Justifications for Admission: Justification of Admission Dx: Yes Sepsis: Infection VY MCDOWELL MD Mar 24, 2020 16:31
[2020-05-28] MEDS ORDERED: LISI20TA18 PO (22:53)
--- NOTE | 2020-06-11 15:06 | PDOC1 ---
History & Physical: Date of Service: DOS: 03-21-2020 H&P: PATIENT: TC CIFUENTES ACCOUNT: [id number] : 1955 LOC: [address] [place] [address] AGE: 64 SEX: M STATUS: ADM IN LOCATION: [address] [place] [address] ADMIT DATE: 03/20/2020 CHIEF COMPLAINT AND HISTORY OF PRESENT ILLNESS: This 64-year-old white male presented to the Emergency Room with dental pain on the left that has been going on for a few days, but then started developing left sided facial swelling and redness. He states that any fever type stuff he may have felt was just in the jaw and really did not feel systemically bad with this. He rated his pain at 9/10. He has been able to eat with the same. He was admitted for IV antibiotics with dental evaluation to take place with fairly significant leukocytosis of 15,000. PAST MEDICAL HISTORY: Remarkable for diabetes, CVA, GERD, hyperlipidemia, hypertension. PAST SURGICAL HISTORY: Remarkable for bilateral cataract extractions. MEDICATIONS: Brought with the patient, listed on computer and have been addressed. ALLERGIES: He has no known drug allergies. SOCIAL HISTORY: He is a former smoker, nondrinker, does not use drugs. , lives at home with his . FAMILY HISTORY: Noncontributory. REVIEW OF SYSTEMS: As mentioned above. PHYSICAL EXAMINATION: GENERAL: He is a well-developed, well-nourished white male, in no acute distress. VITAL SIGNS: Stable. He has had a temperature up to 100.8 since admission. HEAD, EYES, EARS, NOSE AND THROAT: Remarkable for left mandibular swelling and tenderness. NECK: Supple, without adenopathy or thyromegaly. CHEST: Clear to auscultation and percussion. HEART: Regular rate and rhythm without S3, S4 or murmur. ABDOMEN: Soft, nontender, without hepatosplenomegaly or mass. EXTREMITIES: Without cyanosis, clubbing, edema. NEUROLOGIC: Nonfocal. LABORATORY AND DIAGNOSTIC DATA: Again, initial white count is remarkable for 15,000 with a left shift. Sodium is a little bit low at 130. Imaging shows soft tissue edema in the left mandibular region anterior and lateral to the masseter muscle, which is associated with an area of focally decreased density medially measuring 1.5 x 0.9 x 2.1 cm in greatest dimensions, may reflect an associated abscess. There were some small reactive lymph nodes in the submandibular region measuring up to 1.4 cm in size. IMPRESSION: Left dental abscess with leukocytosis, fever. ADDITIONAL DIAGNOSES: Diabetes, status post cerebrovascular accident, hypertension. PLAN: Continue IV antibiotics. ID has been consulted. He will likely need a dental evaluation before this is over or Interventional Radiology to drain the abscess possibly. CHAO Garzon. MD ANUPAM DR: CELESTE/kristina JOB#: [id number] / [id number] DICTATED BY: CHAO BO MD 03/21/20 1042 SIGNED BY: CHAO BO MD 03/22/20 1044 cc: CHAO BO MD; VY MCDOWELL MD ~[id number] 28 Page of CHAO BO MD Jun 11, 2020 15:06
== END 2020-03-24 17:45 | disposition home or self-care (01) | DRG 872 ==
LOC: ER 11:36 → ED HOLD 15:39 → ER 15:40 → 5 NORTH 17:36
PROVIDERS: ADMIT Family Medicine; ATTEND Family Medicine
DX: A41.9 Sepsis, unspecified organism (principal); E87.1 Hypo-osmolality and hyponatremia; I69.354 Hemiplegia and hemiparesis following cerebral infarction affecting left non-dominant side; I48.0 Paroxysmal atrial fibrillation; K04.7 Periapical abscess without sinus; K21.9 Gastro-esophageal reflux disease without esophagitis; E78.00 Pure hypercholesterolemia, unspecified; Z96.1 Presence of intraocular lens; E78.5 Hyperlipidemia, unspecified; F41.9 Anxiety disorder, unspecified; B96.89 Other specified bacterial agents as the cause of diseases classified elsewhere; B96.7 Clostridium perfringens [C. perfringens] as the cause of diseases classified elsewhere; I10 Essential (primary) hypertension; E11.9 Type 2 diabetes mellitus without complications; Z98.42 Cataract extraction status, left eye; Z98.41 Cataract extraction status, right eye; Z86.14 Personal history of Methicillin resistant Staphylococcus aureus infection; Z91.041 Radiographic dye allergy status; Z87.891 Personal history of nicotine dependence
CPT/HCPCS: 36415; 70487; 80048; 80053; 82962; 83605; 85025; 87040; 87493; 96361; 96365; 96367; 96375; J0878; J2020; J2543; J3010; J3490; J7030; 97116-GP; 99285-25; G0378

== ENCOUNTER 2020-05-25 19:07 | Emergency (ER) | payer OTHER ==
[~2020-05-25] VITALS: Ht 170.2 cm; Wt 134.0 kg
[~2020-05-25 19:07] MED LIST changes: +AMOX1TAB61 PO; +VANC500V PO
--- NOTE | 2020-05-25 20:24 | ED.ADGEN ---
Past Medical History Past Medical History: CHF, CVA, Diabetes-Type II, High Cholesterol, Hypertension Past Surgical History: Other Additional Past Surgical Histo: eye surgery for lens bilaterally Smoking Status: Former Smoker Alcohol Use: None Drug Use: None General Adult EDM: Chief Complaint: LOWER EXTREMITY EDEMA HPI: HPI: Patient is a 64 year old male, accompanied by his , who presents emergency department with complaints of swelling, redness, and warmth to both of his lower extremities for about the last week. Patient denies any chest pain, shortness of breath, body aches, fatigue, back pain, numbness, tingling, or weakness. Patient denies any abdominal pain, nausea, vomiting, or diarrhea. He denies any known exposure to anyone with an infectious illness. He denies any weeping or drainage from his lower extremities. Patient reports he has previously had cellulitis and his symptoms are similar to previous cellulitis episodes. He denies any known injury. Patient reports a history of CHF, diabetes type 2, high blood pressure, high cholesterol, and CVA. Patient reports that he has been taking his medications including his water pills as prescribed and denies missing any recent doses. Patient currently denies any pain. Review of Systems: Review of Systems: Complete ROS is negative unless otherwise noted in HPI. Current Medications: Current Medications Medications (Trade) Dose Ordered Sig/Elvia Start Time Stop Time Status Last Admin Dose Admin Cephalexin HCl (Keflex) 500 mg 1X ONCE 05/25/20 22:15 05/25/20 22:17 DC 05/25/20 22:29 500 MG Trimethoprim/ Sulfamethoxazole (Bactrim Ds) 1 tab 1X ONCE 05/25/20 22:15 05/25/20 22:17 DC 05/25/20 22:29 1 TAB Allergies: Allergies: Allergies Coded Allergies Type Severity Reaction Last Updated Verified I S O L A T I O N *CONTACT* Allergy Unknown 12/22/19 Yes No Known Medication Allergies Allergy Unknown 12/22/19 Yes Physical Exam: PE: See Above Constitutional: Well developed, well nourished, no acute distress, non-toxic appearance, obese, nonambulatory. [] HENT: Normocephalic, atraumatic, bilateral external ears normal, nose normal. [] Eyes: PERRLA, EOMI, conjunctiva normal, no discharge. [] Neck: Normal range of motion, no stridor. [] Cardiovascular:Heart rate regular rhythm, no murmur Lungs & Thorax: Respirations even and unlabored, no retractions, no respiratory distress, lungs CTA Abdomen: soft, no tenderness Skin: Warm, dry, no erythema, no rash. [] Extremities: BLE: 2+ edema bilaterally, no weeping, no drainage, erythema of bilateral lower extremities worse on the right than the left, right lower extremity is warm to touch, lower left extremity is also warm to touch. Cap refill less than 2 seconds bilaterally, no cyanosis, ROM intact Neurologic: Alert and oriented X 3, no focal deficits noted. [] Psychologic: Affect normal, judgement normal, mood normal. [] Current Patient Data: Labs: Laboratory Tests Test 05/25/20 20:44 White Blood Count 11.0 x10^3/uL (4.0-11.0) Red Blood Count 4.08 x10^6/uL (4.30-5.70) L Hemoglobin 11.6 g/dL (13.0-17.5) L Hematocrit 35.4 % (39.0-53.0) L Mean Corpuscular Volume 87 fL (79-100) Mean Corpuscular Hemoglobin 28 pg (25-35) Mean Corpuscular Hemoglobin Concent 33 g/dL (31-37) Red Cell Distribution Width 15.8 % (11.5-14.5) H Platelet Count 249 x10^3/uL (140-400) Neutrophils (%) (Auto) 69 % (31-73) Lymphocytes (%) (Auto) 19 % (24-48) L Monocytes (%) (Auto) 8 % (0-9) Eosinophils (%) (Auto) 4 % (0-3) H Basophils (%) (Auto) 0 % (0-3) Neutrophils # (Auto) 7.5 x10^3/uL (1.8-7.7) Lymphocytes # (Auto) 2.0 x10^3/uL (1.0-4.8) Monocytes # (Auto) 0.9 x10^3/uL (0.0-1.1) Eosinophils # (Auto) 0.5 x10^3/uL (0.0-0.7) Basophils # (Auto) 0.0 x10^3/uL (0.0-0.2) Sodium Level 134 mmol/L (136-145) L Potassium Level 4.3 mmol/L (3.5-5.1) Chloride Level 98 mmol/L (98-107) Carbon Dioxide Level 31 mmol/L (21-32) Anion Gap 5 (6-14) L Blood Urea Nitrogen 15 mg/dL (8-26) Creatinine 1.1 mg/dL (0.7-1.3) Estimated GFR (Cockcroft-Gault) 67.6 BUN/Creatinine Ratio 14 (6-20) Glucose Level 232 mg/dL (70-99) H Calcium Level 8.8 mg/dL (8.5-10.1) Total Bilirubin 0.2 mg/dL (0.2-1.0) Aspartate Amino Transferase (AST) 10 U/L (15-37) L Alanine Aminotransferase (ALT) 21 U/L (16-63) Alkaline Phosphatase 110 U/L (46-116) GO-Zid-D-Type Natriuretic Peptide 39 pg/mL (0-124) Total Protein 7.0 g/dL (6.4-8.2) Albumin 3.1 g/dL (3.4-5.0) L Albumin/Globulin Ratio 0.8 (1.0-1.7) L Laboratory Tests 05/25/20 20:44 Laboratory Tests 05/25/20 20:44 Vital Signs: Vital Signs Date Time Temp Pulse Resp B/P (MAP) Pulse Ox O2 Delivery O2 Flow Rate FiO2 05/25/20 21:10 82 20 124/69 (87) 94 Room Air 05/25/20 19:45 97.3 97.3 EKG: EK-sinus rhythm 88, no STEMI read by Dr. Yuen [] Heart Score: C/O Chest Pain: No Risk Scores: Score 0 - 3: 2.5% MACE over next 6 weeks - Discharge Home Score 4 - 6: 20.3% MACE over next 6 weeks - Admit for Clinical Observation Score 7 - 10: 72.7% MACE over next 6 weeks - Early Invasive Strategies Radiology/Procedures: Radiology/Procedures: PROCEDURE: VENOUS LOWER EXT BILATERAL STUDY: US BILATERAL LOWEREXTREMITY VENOUS DOPPLER INDICATION: Lower extremity swelling. DVT. TECHNIQUE: Color-flow and pulsed wave duplex ultrasound with compression of venous structures of the bilateral lower extremities. COMPARISON: 12/17/2019. FINDINGS: Duplex ultrasound with compression of the deep venous structures of the bilateral lower extremities from the common femoral vein through the popliteal vein is negative for DVT. The posterior tibial and peroneal veins are segmentally visualized and patent where seen. Normal venous waveforms and augmentation are noted throughout. Nonspecific subcutaneous edema mainly at and below the knees. IMPRESSION: 1. No deep venous thrombosis identified throughout either lower extremity. 2. Nonspecific subcutaneous edema mainly at and below the knees. Electronically signed by: MORA CARBAJAL MD (05/25/2020 9:26 PM) [facility][] Course & Med Decision Making: Course & Med Decision Making Pertinent Labs and Imaging studies reviewed. (See chart for details) 64-year-old male presented to emergency department with complaints of bilateral lower extremity redness, swelling, and warmth for the last week. He denied any recent injury or trauma. Patient denies any chest pain, shortness of breath, or palpitations. Ultrasound of bilateral extremities revealed no DVT. CBC revealed mild anemia with a hemoglobin 11.6, hematocrit of 35.4, no leukocytosis; CMP revealed a sodium of 134, glucose of 232, otherwise unremarkable, the patient's BNP was 39 but is not elevated. Patient's vital signs are stable in the emergency department, he denies any shortness of breath throughout his stay. Vital signs are stable sat remained 98- 100% on room air. Respirations were unlabored. EKG revealed no acute findings. I discussed the results with the patient and patient stated that he would like to go home for treatment of his cellulitis. Prescriptions were written for Bactrim and Keflex. Encouraged patient to follow-up with his primary care doctor in the next 1 to 2 days, instructed him to return to the ER if he developed a fever, or the infection continued to increase or started weeping. Patient and his verbalized an understanding of home care, medications, follow-up, and return to ED instructions and was in agreement with the plan of care. [] Dragon Disclaimer: Dragon Disclaimer: This electronic medical record was generated, in whole or in part, using a voice recognition dictation system. Departure Departure Impression: Primary Impression: Bilateral cellulitis of lower leg Disposition: 01 DC HOME SELF CARE/HOMELESS Condition: STABLE Referrals: VY JONES MD (PCP) Patient Instructions: Cellulitis, [id number] Additional Instructions: Fill the prescriptions and use them as directed, you can take Tylenol or ibuprofen as needed for pain. Follow-up with Dr. Jones within the next 1 to 2 days for reevaluation, return to the ER if symptoms worsen, fever develops, or you develop chest pain or shortness of breath. Scripts Sulfamethoxazole/Trimethoprim (BACTRIM DS TABLET) 1 Each Tablet 1 TAB PO BID for 10 Days, #20 TAB 0 Refills Prov: HARLEY ROSALES APRN 05/25/20 Cephalexin (CEPHALEXIN) 500 Mg Tablet 1 TAB PO QID for 10 Days, #40 TAB 0 Refills Prov: HARLEY ROSALES APRN 05/25/20 HARLEY ROSALES APRN May 25, 2020 20:23
[2020-05-25 20:58] LABS: BASO % 0 % (0-3); EOS # 0.5 x10^3/uL (0.0-0.7); EOS % 4 % (0-3); HEMATOCRIT 35.4 % (39.0-53.0); HEMOGLOBIN 11.6 g/dL (13.0-17.5); LYMPH % 19 % (24-48); MEAN CORPUSCULAR HEMOGLOBIN 28 pg (25-35); MEAN CORPUSCULAR HGB CONC 33 g/dL (31-37); MEAN CORPUSCULAR VOLUME 87 fL (79-100); MONO # 0.9 x10^3/uL (0.0-1.1); MONO % 8 % (0-9); NEUT # 7.5 x10^3/uL (1.8-7.7); NEUT % 69 % (31-73); PLATELET COUNT 249 x10^3/uL (140-400); RED BLOOD COUNT 4.08 x10^6/uL (4.30-5.70); RED CELL DISTRIBUTION WIDTH 15.8 % (11.5-14.5)
[2020-05-25 21:11] LABS: CALCIUM 8.8 mg/dL (8.5-10.1); CREATININE 1.1 mg/dL (0.7-1.3); GFR 67.6; POTASSIUM 4.3 mmol/L (3.5-5.1)
[2020-05-25 21:17] LABS: ALBUMIN 3.1 g/dL (3.4-5.0); ALBUMIN/GLOBULIN RATIO 0.8 (1.0-1.7); TOTAL BILIRUBIN 0.2 mg/dL (0.2-1.0)
--- NOTE | 2020-05-25 21:24 | EKG ---
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
--- NOTE | 2020-05-25 21:29 | RAD ---
STUDY: US BILATERAL LOWEREXTREMITY VENOUS DOPPLER INDICATION: Lower extremity swelling. DVT. TECHNIQUE: Color-flow and pulsed wave duplex ultrasound with compression of venous structures of the bilateral lower extremities. COMPARISON: 12/17/2019. FINDINGS: Duplex ultrasound with compression of the deep venous structures of the bilateral lower extremities f rom the common femoral vein through the popliteal vein is negative for DVT. The posterior tibial and peroneal veins are segmentally visualized and patent where seen. Normal veno us waveforms and augmentation are noted throughout. Nonspecific subcutaneous edema mainly at and below the knees. IMPRESSION: 1. No deep venous thrombosis identified throughout either lower extremity. 2. Nonspecific subcutaneous edema mainly at and below the knees. Electronically signed by: MORA CARBAJAL MD (05/25/2020 9:26 PM) [facility]
[2020-05-25 22:10] VITALS: BP 103/54
[2020-05-25] MEDS ORDERED: SULF1TAB24 PO (22:14)
[2020-05-25] MEDS ORDERED: CEPH500T PO (22:14)
[2020-05-25] MEDS ORDERED: SMZ/TMP 800/160MG TABLET. PO ONE (22:15)
[2020-05-25] MEDS ORDERED: CEPHALEXIN 250 MG CAPSULE. PO ONE (22:15)
== END 2020-05-25 22:50 | disposition home or self-care (01) ==
LOC: ER 19:07
DX: L03.116 Cellulitis of left lower limb (principal); L03.115 Cellulitis of right lower limb; E11.9 Type 2 diabetes mellitus without complications; E78.00 Pure hypercholesterolemia, unspecified; I11.0 Hypertensive heart disease with heart failure; I50.9 Heart failure, unspecified; Z86.73 Personal history of transient ischemic attack (TIA), and cerebral infarction without residual deficits; Z87.891 Personal history of nicotine dependence; Z91.041 Radiographic dye allergy status
CPT/HCPCS: 36415; 80053; 83880; 85025; 93005; 93970; 99285-25

== ENCOUNTER → 2020-06-29 | Outpatient (CLI) | payer OTHER ==
[2020-06-01 11:00] VITALS: BP 112/70
[~2020-06-29] MED LIST changes: +CEPH500T PO; +LISI20TA18 PO; +SULF1TAB24 PO
--- NOTE | 2020-06-30 15:27 | RAD ---
Bilateral lower extremity arterial duplex ultrasound study and bilateral lower extremity ABIs. INDICATION: Bilateral nonhealing anterior mid calf wounds. TECHNIQUE: Real-time grayscale and color and spectral Doppler evaluation of the bilateral lower extre mities is performed along with bilateral lower extremity ABIs. FINDINGS: The ELENA on the right is 1.25 and on the left 1.32. These are normal. On the right, there is mild multifocal ossified atherosclerosis, with triphasic waveforms and normal velocities in the comm on femoral, deep femoral, and proximal superficial femoral arteries. There is a transition to biphasi c flow with increased spectral broadening in the distal SFA, popliteal, and posterior tibial arteries . Within the mid SFA, there is triphasic flow with mildly elevated velocity 163 cm/s, which does not meet criteria for definite hemodynamically significant stenosis, however given the change in appearan ce of distal waveforms, a borderline focal stenosis may be present in the mid right SFA. The right an terior tibial, peroneal, and dorsalis pedis arteries are triphasic and patent. On the left, there is mild multifocal atherosclerosis in all distributions, with no hemodynamically significant stenoses id entified, and patency of all vessels. IMPRESSION: 1. Mild multifocal atherosclerosis with normal bilateral ABIs. There is a borderline focal plaque in the right mid SFA which does not definitely meet sonographic criteria for hemodynamic significance, b ut does appear to alter distal waveforms, and may be hemodynamically significant. This could be romulo r interrogated with CT angiography or direct angiography if clinically warranted. Electronically signed by: Jose Triana MD (06/30/2020 3:24 PM) [id number]
== END ==
LOC: US 13:35
PROVIDERS: ATTEND Emergency Medicine Undersea and Hyperbaric Medicine
DX: I70.203 Unspecified atherosclerosis of native arteries of extremities, bilateral legs (principal); I87.023 Postthrombotic syndrome with inflammation of bilateral lower extremity; L97.211 Non-pressure chronic ulcer of right calf limited to breakdown of skin; L97.221 Non-pressure chronic ulcer of left calf limited to breakdown of skin
CPT/HCPCS: 93922; 93925

== ENCOUNTER → 2020-08-24 | Outpatient (CLI) | payer OTHER ==
[2020-06-01 11:00] VITALS: BP 112/70
--- NOTE | 2020-08-24 18:26 | CARD ---
MR#: [id number] Date of Study: 08/24/2020 Ordering Physician: HILARIA CHRISTIANSEN, Referring Physician: HILARIA CHRISTIANSEN, Tech: Farhat Connolly [facility] APPROVED REPORT EXAM: Two-dimensional and M-mode echocardiogram with Doppler and color Doppler. Other Information Quality : Fair Rhythm : NSRTechnically limited study due to body habitus. INDICATION Congestive Heart Failure RISK FACTORS Obesity 2D DIMENSIONS Left Atrium(2D)4.4 (1.6-4.0cm)IVSd1.0 (0.7-1.1cm) Aortic Root(2D)3.5 (2.0-3.7cm)LVDd3.5 (3.9-5.9cm) LVOT Diameter2.1 (1.8-2.4cm)PWd0.9 (0.7-1.1cm) LVDs1.7 (2.5-4.0cm)FS (%) 50.8 % SV41.5 mlLVEF(%)83.0 (>50%) Aortic Valve AoV Peak Lionel.205.2cm/sAoV VTI38.9cm AO Peak GR.16.8mmHgLVOT Peak Lionel.124.4cm/s AO Mean GR.8mmHgAVA (VMAX)2.02cm2 Mitral Valve MV E Yqxvmdky72.4cm/sMV E Peak Gr.5mmHg MV DECEL [id number] A Zqaebayk72.6cm/s MV E Mean Gr.3mmHgE/A Ratio1.2 Pulmonary Valve PV Peak Owtqkbbq718.9cm/s Tricuspid Valve TR P. Ckyowpmd927hz/sTR Peak Gr.27mmHg Pulmonary Vein S1 Oepxoebd04.7cm/sD2 Phjqrsvx03.9cm/s LEFT VENTRICLE The left ventricle is normal size. There is normal left ventricular wall thickness. The left ventricu lar systolic function is normal and the ejection fraction is within normal range. EF 55% There is nor mal LV segmental wall motion. Tissue Doppler imaging reveals moderate left ventricular diastolic dysf unction. RIGHT VENTRICLE The right ventricle is normal size. There is normal right ventricular wall thickness. The right ventr icular systolic function is normal. ATRIA The left atrium is mildly dilated. The right atrium size is normal. The interatrial septum is intact with no evidence for an atrial septal defect or patent foramen ovale as noted on 2-D or Doppler imagi ng. AORTIC VALVE The aortic valve is calcified with restricted leaflet motion. Doppler and Color Flow revealed no sign ificant aortic regurgitation. There is no significant aortic valvular stenosis. There is no aortic va lvular vegetation. MITRAL VALVE The mitral valve is normal in structure and function. There is no evidence of mitral valve prolapse. There is no mitral valve stenosis. Doppler and Color-flow revealed trace mitral regurgitation. TRICUSPID VALVE The tricuspid valve is normal in structure and function. Doppler and Color Flow revealed trace tricus pid regurgitation. There is no tricuspid valve prolapse or vegetation. There is no tricuspid valve st enosis. PULMONIC VALVE Doppler and Color Flow revealed no pulmonic valvular regurgitation. There is no pulmonic valvular duke nosis. GREAT VESSELS The aortic root is normal in size. The ascending aorta is normal in size. The IVC is normal in size a nd collapses >50% with inspiration. PERICARDIAL EFFUSION There is no pleural effusion. There is no evidence of significant pericardial effusion. Critical Notification Critical Value: No <Conclusion> The left ventricular systolic function is normal and the ejection fraction is within normal range. EF 55% There is normal LV segmental wall motion. Technically difficult study. Signed by : Hilaria Christiansen, Electronically Approved : 08/24/2020 18:25:34
== END ==
LOC: ECHO 09:20
PROVIDERS: ATTEND Internal Medicine Cardiovascular Disease
DX: I50.30 Unspecified diastolic (congestive) heart failure (principal); I51.9 Heart disease, unspecified; I70.0 Atherosclerosis of aorta
CPT/HCPCS: 93306

== ENCOUNTER 2020-10-15 18:02 | Inpatient (IN) | payer OTHER ==
[~2020-10-15] VITALS: Ht 170.2 cm; Wt 115.5 kg
--- NOTE | 2020-10-15 18:44 | PHYS DOC ---
Past Medical History Past Medical History: CHF, CVA, Diabetes-Type II, High Cholesterol, Hyper tension Past Surgical History: Other Additional Past Surgical Histo: eye surgery for lens bilaterally Smoking Status: Former Smoker Alcohol Use: None Drug Use: None General Adult EDM: Chief Complaint: Infected right leg ulcer HPI: HPI: 65-year-old male diabetic with history of CHF and A. fib on Lasix, comes to the ER after having been on Keflex for 1 week for some cellulitis and wounds on his right leg, he says they are not getting better and his doctor sent him in to get admitted for IV antibiotics, he was on Keflex for the past 7 days and finished the course that much improvement, denies chest pain or shortness of breath, the patient is fortunately vaccinated to coronavirus 19 Review of Systems: Review of Systems: Constitutional: Denies fever or chills. [] Eyes: Denies change in visual acuity. [] HENT: Denies nasal congestion or sore throat. [] Respiratory: Denies cough or shortness of breath. [] Cardiovascular: Denies chest pain or edema. [] GI: Denies abdominal pain, nausea, vomiting, bloody stools or diarrhea. [] : Denies dysuria. [] Musculoskeletal: Denies back pain or joint pain. [] Positive for right leg pain swelling and ulcers Integument: Denies rash. [] Neurologic: Denies headache, focal weakness or sensory changes. [] Endocrine: Denies polyuria or polydipsia. [] Lymphatic: Denies swollen glands. [] Psychiatric: Denies depression or anxiety. [] Heart Score: C/O Chest Pain: No Risk Factors: Risk Factors: DM, Current or recent (<one month) smoker, HTN, HLP, family history of CAD, obesity. Risk Scores: Score 0 - 3: 2.5% MACE over next 6 weeks - Discharge Home Score 4 - 6: 20.3% MACE over next 6 weeks - Admit for Clinical Observation Score 7 - 10: 72.7% MACE over next 6 weeks - Early Invasive Strategies Current Medications: Current Medications Medications (Trade) Dose Ordered Sig/Elvia Start Time Stop Time Status Last Admin Dose Admin Cefazolin Sodium/ Dextrose 50 ml @ 100 mls/hr 1X ONCE 10/15/20 18:45 10/15/20 19:14 Vancomycin HCl 250 ml @ 250 mls/hr 1X ONCE 10/15/20 18:45 10/15/20 18:39 DC Vancomycin HCl (Vanco Per Pharmacy) 1 each PRN DAILY PRN 10/15/20 18:45 UNV Allergies: Allergies: Allergies Coded Allergies Type Severity Reaction Last Updated Verified I S O L A T I O N *CONTACT* Allergy Unknown 12/22/19 Yes No Known Medication Allergies Allergy Unknown 12/22/19 Yes Physical Exam: PE: Constitutional: Well developed, well nourished, no acute distress, non-toxic appearance. [] HENT: Normocephalic, atraumatic, bilateral external ears normal, oropharynx moist, no oral exudates, nose normal. [] Eyes: PERRLA, EOMI, conjunctiva normal, no discharge. [] Neck: Normal range of motion, no tenderness, supple, no stridor. [] Cardiovascular:Heart rate regular rhythm, no murmur [] Lungs & Thorax: Bilateral breath sounds clear to auscultation [] Abdomen: Bowel sounds normal, soft, no tenderness, no masses, no pulsatile masses. [] Skin: Warm, dry, no erythema, no rash. [] Back: No tenderness, no CVA tenderness. [] Extremities: No tenderness, no cyanosis, no clubbing, ROM intact, no edema. [] There is a patch of cellulitis around the right lower extremity about 6 x 8 cm with 2 open ulcers, no purulent drainage however Neurologic: Alert and oriented X 3, n no acute focal neurologic deficits although the patient does have chronic leg and arm weakness on the left side from a prior stroke Psychologic: Affect normal, judgement normal, mood normal. [] Current Patient Data: Vital Signs: Vital Signs Date Time Temp Pulse Resp B/P (MAP) Pulse Ox O2 Delivery O2 Flow Rate FiO2 10/15/20 18:05 98.1 87 20 139/65 (84) 95 Room Air 98.1 EKG: EKG: [] Patient's twelve-lead EKG was done at 6:33 PM: Normal sinus rhythm, rate is 91, nonischemic appearing EKG with normal axis and intervals Radiology/Procedures: Radiology/Procedures: [] Course & Med Decision Making: Course & Med Decision Making Pertinent Labs and Imaging studies reviewed. (See chart for details) [] Patient presented to the ED with infected diabetic ulcer that failed outpatient antibiotics will give him IV antibiotics, no signs of any abscess, he has otherwise normal neurovascular, tendon ligamentous function, well score is -2, unlikely DVT and I believe there is a alternative diagnosis is much more likely, believe he likely needs to be admitted for IV antibiotic therapy, will g et an x-ray, I suspicion for osteomyelitis is low as these do appear to be acute ulcers Goyo Disclaimer: Goyo Disclaimer: This electronic medical record was generated, in whole or in part, using a voice recognition dictation system. Departure Departure Impression: Primary Impression: Cellulitis of right leg without foot Disposition: ADMITTED INPATIENT Referrals: VY MCDOWELL MD (PCP) TIM ROBERTS MD Oct 15, 2020 18:44
[2020-10-15] MEDS ORDERED: VANCOMYCIN 1GM IVPB FOR OMNI 250 ML IV ONE (18:45)
--- NOTE | 2020-10-15 19:26 | RAD ---
EXAM: CHEST 1 VIEW History: Leg infection COMPARISON: 05/28/2020 TECHNIQUE: Single portable radiograph of the chest FINDINGS: Low lung volumes and technique accentuates heart size and pulmonary vasculaturity. Mild le ft lung base airspace opacities likely atelectasis or infiltrates. The costophrenic sulci are clear a nd well demarcated. IMPRESSION: Mild left lung base airspace opacities likely atelectasis or infiltrates. Electronically signed by: Kenny Bernardo MD (10/15/2020 7:23 PM) [id number]
[2020-10-15] MEDS ORDERED: VANCOMYCIN 2 GM in IV NORMAL SALINE 500ML BAG 500 ML IV ONE (19:30)
[2020-10-15 19:33] LABS: BASO # 0.1 x10^3/uL (0.0-0.2); BASO % 1 % (0-3); EOS # 0.6 x10^3/uL (0.0-0.7); EOS % 5 % (0-3); HEMATOCRIT 39.4 % (39.0-53.0); HEMOGLOBIN 12.8 g/dL (13.0-17.5); LYMPH # 1.8 x10^3/uL (1.0-4.8); LYMPH % 16 % (24-48); MEAN CORPUSCULAR HEMOGLOBIN 28 pg (25-35); MEAN CORPUSCULAR HGB CONC 33 g/dL (31-37); MEAN CORPUSCULAR VOLUME 86 fL (79-100); MONO # 0.8 x10^3/uL (0.0-1.1); MONO % 7 % (0-9); NEUT # 8.1 x10^3/uL (1.8-7.7); NEUT % 71 % (31-73); PLATELET COUNT 292 x10^3/uL (140-400); RED CELL DISTRIBUTION WIDTH 16.6 % (11.5-14.5); WHITE BLOOD COUNT 11.4 x10^3/uL (4.0-11.0)
--- NOTE | 2020-10-15 19:44 | RAD ---
XR RT TIBIA+FIBULA DATE: 10/15/2020 6:43 PM INDICATION: Reason: leg infected / Spl. Instructions: / History: COMPARISON: None. FINDINGS: Bones: There is no evidence of acute fracture. No joint dislocation is noted. Miscellaneous: Atherosclerotic vascular calcification. IMPRESSION: No acute fracture. No osseous erosions. Electronically signed by: Babar Davis MD (10/15/2020 7:42 PM) [facility]
[2020-10-15 19:49] LABS: CALCIUM 8.8 mg/dL (8.5-10.1); CREATININE 1.1 mg/dL (0.7-1.3); GFR 67.4; POTASSIUM 4.2 mmol/L (3.5-5.1)
[2020-10-15 19:55] LABS: ALBUMIN 3.3 g/dL (3.4-5.0); ALBUMIN/GLOBULIN RATIO 0.8 (1.0-1.7); TOTAL BILIRUBIN 0.2 mg/dL (0.2-1.0); TOTAL PROTEIN 7.4 g/dL (6.4-8.2)
[2020-10-15] MEDS ORDERED: ONDANSETRON PF 4 MG/2 ML VIAL. IVP PRN (21:00)
[2020-10-15] MEDS: VANCOMYCIN PER PHARMACY MC PRN (21:11)
--- NOTE | 2020-10-15 21:12 | NUR ---
Pharmacy Vancomycin Dosing Note S:Consulted to monitor and dose vancomycin started 10/15/20. O:ESAUTC is a 65 year old M with Cellulitis . Height: 5 feet, 7 inches Weight: 113.6 kg [place] Body Weight: 66.10 Adjusted Body Weight: 85.10 Dosing Weight: Actual Other Antibiotics: LABS: Last BUN: 17 Last Creatinine: 1.1 Creatinine Clearance: 82 mL/min Last WBC: 11.4 Last Procalcitonin: Tmax (past 24 hours): Microbiology: I/O: Drug Levels: Last level: on at Last dose given at Vancomycin Dosing: Loading Dose: 2000 mg x1 Dosing Weight: Actual Target Trough: 10-20 A: Based on: HT, WT AND RENAL FXN P: 1. Begin Vancomycin 2000 mg IV q18h 2. Follow up Trough level on 10/17/20 at 0830 3. Pharmacy will continue to monitor, follow and adjust therapy as needed. ANDREA GASTON, [facility], 10/15/20 [id number]
--- NOTE | 2020-10-15 22:31 | NUR ---
The patient, TC CIFUENTES, 65 y/o, M admitted by MANJINDER DEWEY MD, was given written information regarding hospital policies, unit procedures and contact persons. Valuables were checked and left with him.
[2020-10-15 22:33] VITALS: BP 121/62
[2020-10-15] MEDS ORDERED: TEMAZEPAM 15 MG CAPSULE PO PRN (23:30)
[2020-10-16] MEDS ORDERED: FURO40TA4 PO (00:11)
[2020-10-16] MEDS ORDERED: FURO20TA3 PO (00:11)
[2020-10-16] MEDS ORDERED: DOXE10CA PO (00:15)
[2020-10-16] MEDS ORDERED: DEXTROSE 50% 25 GM / 50ML DISP.SYRIN. IV PRN (00:30)
[2020-10-16] MEDS ORDERED: DOXEPIN HCL 10 MG CAPSULE. PO ONE (01:00)
[2020-10-16] MEDS: ANTI-COAG MONITOR BY PHARMACY. MC PRN ×2 (01:47→16:25)
--- NOTE | 2020-10-16 02:44 | EKG ---
[facility] [address] [place] [address] Test Date: 2020-10-15 Test Time: 18:53:25 Pat Name: TC CIFUENTES Department: Room: Gender: Visually Impaired Teacher: : 1955 Requested By: TIM ROBERTS Order Number: [id number] Reading MD: Measurements Intervals [place] Rate: 91 P: 49 [place]: 152 QRS: 24 QRSD: 70 T: 27 QT: 348 QTc: 430 Interpretive Statements SINUS RHYTHM R-S TRANSITION ZONE IN V LEADS DISPLACED TO THE RIGHT OTHERWISE NORMAL ECG RI6.02 No previous ECG available for comparison
[2020-10-16 03:00] VITALS: BP 122/63
[2020-10-16 08:00] VITALS: BP 135/72
[2020-10-16] MEDS: INSULIN LISPRO 300 UNITS/3 ML VIAL. SQ SCH ×2 (08:00→12:00)
[2020-10-16] MEDS: METOPROLOL SUCC 24HR ER 25 MG TAB.ER.24H. PO SCH (08:57)
[2020-10-16] MEDS: BACLOFEN 10 MG TABLET. PO SCH ×3 (08:58→21:06)
[2020-10-16] MEDS: LISINOPRIL 20 MG TABLET PO SCH (08:58)
[2020-10-16] MEDS: PANTOPRAZOLE 40 MG TABLET.DR. PO SCH (08:58)
[2020-10-16] MEDS: APIXABAN 5 MG TABLET. PO SCH ×2 (08:59→21:06)
[2020-10-16] MEDS: CITALOPRAM 20 MG TABLET. PO SCH (08:59)
[2020-10-16 11:00] VITALS: BP 113/64
[2020-10-16] MEDS: VANCOMYCIN PER PHARMACY MC PRN (14:19)
--- NOTE | 2020-10-16 14:41 | PDOC ---
Provider Note Date of Service: DATE: 10/16/20 TIME: 14:38 Provider Note [id number] Justifications for Admission Other Justification MANJINDER DEWEY MD Oct 16, 2020 14:40
[2020-10-16 15:00] VITALS: BP 102/63
--- NOTE | 2020-10-16 15:05 | HP ---
ADMIT DATE: 10/16/2020 CHIEF COMPLAINT: Painful right leg. HISTORY OF PRESENT ILLNESS: This 65-year-old white male with previous stroke and hemiparesis from this has been "picking some wounds" on his right leg and has had increasing swelling, pain and redness. He was started on IV vancomycin in the ER and he states his pain is a little bit improved since admission. Denies fever, chills, drainage from the wounds or other complaints. PAST MEDICAL HISTORY: ALLERGIES: No allergies noted. MEDICATIONS: Listed per the chart. Last A1c is unknown. He takes anticoagulants for not a clear-cut reason. FAMILY HISTORY: Unremarkable. SOCIAL HISTORY: Lives with family. Nonsmoker, nondrinker. REVIEW OF SYSTEMS: No other complaints. OBJECTIVE: ENT: All within normal limits. NECK: No carotid bruits, masses or nodes. LUNGS: Clear without tachypnea. CARDIOVASCULAR: Regular rate. No irregular beat or murmur. ABDOMEN: Obese, soft, nontender. EXTREMITIES: He has 4 dry superficial abrasions on the right lower leg with 2+ edema and some redness diffusely in the lower leg. There is no drainage or purulence. Pedal pulses diminished on both sides. NEUROLOGIC: He has left hemiparesis. Otherwise unremarkable. ASSESSMENT: Cellulitis of the right lower leg. Other chronic medical problems, stable. PLAN: DNR per his request. Continue vancomycin pending cultures. MARTIR DR: Clarence TID: [id number]
[2020-10-16] MEDS: CLOPIDOGREL BISULFATE 75 MG TABLET PO SCH (15:14)
[2020-10-16] MEDS: VANCOMYCIN 2 GM in IV NORMAL SALINE 500ML BAG 500 ML IV SCH (15:15)
[2020-10-16] MEDS: metFORMIN 500 MG TABLET PO SCH (17:58)
[2020-10-16 19:00] VITALS: BP 121/74
[2020-10-16] MEDS: ATORVASTATIN CALCIUM 40 MG TABLET. PO SCH (21:06)
[2020-10-16] MEDS: DOXEPIN HCL 10 MG CAPSULE. PO SCH (21:06)
[2020-10-16 23:00] VITALS: BP 116/67
[2020-10-17 03:09] VITALS: BP 118/61
[2020-10-17] MEDS: PANTOPRAZOLE 40 MG TABLET.DR. PO SCH (05:12)
[2020-10-17 07:00] VITALS: BP 133/68
[2020-10-17] MEDS: LISINOPRIL 20 MG TABLET PO SCH (08:54)
[2020-10-17] MEDS: APIXABAN 5 MG TABLET. PO SCH ×2 (08:54→21:09)
[2020-10-17] MEDS: metFORMIN 500 MG TABLET PO SCH ×2 (08:54→17:42)
[2020-10-17] MEDS: METOPROLOL SUCC 24HR ER 25 MG TAB.ER.24H. PO SCH (08:54)
[2020-10-17] MEDS: CITALOPRAM 20 MG TABLET. PO SCH (08:54)
[2020-10-17] MEDS: CLOPIDOGREL BISULFATE 75 MG TABLET PO SCH (08:54)
[2020-10-17] MEDS: VANCOMYCIN 2 GM in IV NORMAL SALINE 500ML BAG 500 ML IV SCH (08:55)
[2020-10-17] MEDS: BACLOFEN 10 MG TABLET. PO SCH ×3 (08:55→21:09)
[2020-10-17 09:06] LABS: VANC TR 12.5 mcg/mL (10.0-20.0)
--- NOTE | 2020-10-17 09:28 | PDOC ---
Provider Note Date of Service: DATE: 10/17/20 TIME: 09:27 Provider Note no temp, R leg redness a litlle better - labs ok, cults neg so far- cont iv vanco, lasix for edema Justifications for Admission Other Justification MANJINDER DEWEY MD Oct 17, 2020 09:28
[2020-10-17] MEDS ORDERED: FUROSEMIDE 40 MG TABLET. PO ONE (09:30)
[2020-10-17] MEDS: VANCOMYCIN PER PHARMACY MC PRN (10:41)
--- NOTE | 2020-10-17 10:44 | NUR ---
Pharmacy Vancomycin Dosing Note S:Consulted to monitor and dose vancomycin started 10/15/20. O:ESAUTC Ho is a 65 year old M with Cellulitis . Height: 5 feet, 7 inches Weight: 115.5 kg [place] Body Weight: 66.10 Adjusted Body Weight: 85.86 Dosing Weight: Actual Other Antibiotics: LABS: Last BUN: 17 Last Creatinine: 1.1 Creatinine Clearance: 82 mL/min Last WBC: 11.4 Last Procalcitonin: Tmax (past 24 hours): 98.6 Microbiology: NGTD I/O: /2551 Drug Levels: Last Trough level: 12.5 on 10/17/20 at 0830 Last dose given 10/15/20 at 2035 Vancomycin Dosing: Loading Dose: 2000 mg x1 Dosing Weight: Actual Target Trough: 10-20 A: Based on trough of 12.5: P: 1. Continue Vancomycin 2000 mg IV q18h. 2. Follow up Trough level as needed. 3. Pharmacy will continue to monitor, follow and adjust therapy as needed. Ivan Jones [facility], 10/17/20 2021
[2020-10-17 11:00] VITALS: BP 126/63
[2020-10-17 15:00] VITALS: BP 116/71
[2020-10-17 19:00] VITALS: BP 133/78
[2020-10-17] MEDS: DOXEPIN HCL 10 MG CAPSULE. PO SCH (21:09)
[2020-10-17] MEDS: BACITRACIN TOPICAL OINT PACKET. TP SCH (21:09)
[2020-10-17] MEDS: ATORVASTATIN CALCIUM 40 MG TABLET. PO SCH (21:09)
[2020-10-17 23:00] VITALS: BP 111/56
[2020-10-18 03:04] VITALS: BP 133/66
[2020-10-18] MEDS: VANCOMYCIN 2 GM in IV NORMAL SALINE 500ML BAG 500 ML IV SCH ×2 (03:28→20:39)
[2020-10-18] MEDS: PANTOPRAZOLE 40 MG TABLET.DR. PO SCH (05:13)
[2020-10-18 06:39] VITALS: BP 111/68
--- NOTE | 2020-10-18 08:30 | PDOC ---
Provider Note Date of Service: DATE: 10/18/20 TIME: 08:29 Provider Note vs, no temp, cults neg so far- R leg some better, likely dc 10/19 on keflex Justifications for Admission Other Justification MANJINDER DEWEY MD Oct 18, 2020 08:30
[2020-10-18] MEDS: CLOPIDOGREL BISULFATE 75 MG TABLET PO SCH (08:45)
[2020-10-18] MEDS: metFORMIN 500 MG TABLET PO SCH ×2 (08:45→17:52)
[2020-10-18] MEDS: CITALOPRAM 20 MG TABLET. PO SCH (08:45)
[2020-10-18] MEDS: APIXABAN 5 MG TABLET. PO SCH ×2 (08:46→20:37)
[2020-10-18] MEDS: BACLOFEN 10 MG TABLET. PO SCH ×3 (08:46→20:37)
[2020-10-18] MEDS: BACITRACIN TOPICAL OINT PACKET. TP SCH ×2 (08:46→20:37)
[2020-10-18] MEDS: LISINOPRIL 20 MG TABLET PO SCH (08:48)
[2020-10-18] MEDS: METOPROLOL SUCC 24HR ER 25 MG TAB.ER.24H. PO SCH (08:49)
[2020-10-18] MEDS: VANCOMYCIN PER PHARMACY MC PRN (09:51)
[2020-10-18] MEDS: ANTI-COAG MONITOR BY PHARMACY. MC PRN (09:53)
--- NOTE | 2020-10-18 10:49 | NUR ---
SW following. Discussed with RN, pt from home with spouse, room air, ada diet, rapid COVID-19- negative.. IV abx and wound care. Pt current with [facility]. SW will continue to follow.
[2020-10-18 11:00] VITALS: BP 115/65
[2020-10-18 12:18] LABS: GFR 75.2
[2020-10-18 15:00] VITALS: BP 96/65
[2020-10-18 19:00] VITALS: BP 124/67
[2020-10-18] MEDS: DOXEPIN HCL 10 MG CAPSULE. PO SCH (20:37)
[2020-10-18] MEDS: LACTOBACILLUS RHAMNOSUS GG 1 CAPSULE. PO SCH (20:37)
[2020-10-18] MEDS: ATORVASTATIN CALCIUM 40 MG TABLET. PO SCH (20:37)
[2020-10-18 23:00] VITALS: BP 110/65
[2020-10-19 03:00] VITALS: BP 135/65
[2020-10-19] MEDS: PANTOPRAZOLE 40 MG TABLET.DR. PO SCH (05:02)
[2020-10-19 07:00] VITALS: BP 126/77
--- NOTE | 2020-10-19 08:35 | SNU/HH DC ---
DISCHARGE WITH HOME HEALTH DISCHARGE INFORMATION: Final Diagnosis: Problems Medical Problems: (1) Cellulitis of right leg without foot Status: Acute Condition on Discharge: Stable CODE STATUS: Code Status: DNR/DNI HOME HEALTH: Face to Face: I certify this patient is under my care and that I, or a nurse practitioner or physician's general office assistant working with me, had a face to face encounter that meets the physician face to face encounter requirements with this patient on []. Medical Complications: DM RN For Eval/Treatment: Yes Physical Therapy For: Evalulation/Treatment Home Health Aide For: Self-care Pt Meets Homebound Status: Poor coordination w/ amb. POST DISCHARGE ORDERS: Activity Instructions for Disc: Activity as tolerated Weight Bearing Status after Di: As tolerated DIET AFTER DISCHARGE: ADA CHECKS AFTER DISCHARGE: Checks after discharge: Check blood press - daily, Check blood sugar, ac/hs, Check your Temp as needed TREATMENT/EQUIPMENT ORDERS: Adaptive Equipment Issued: None CERTIFICATION STATEMENT: Certification Statement: Certification Statement: Based on the above finding, I certify that this patient is confined to the home and needs intermittent long-term care, physical therapy and/or speech therapy, or continues to need occupational therapy.~ This patient is under my care, and I have initiated the establishment of the plan of care.~ This patient will be followed by myself or a community physician who will periodically review the plan of care. Home Meds Reported Medications Doxepin Hcl (DOXEPIN HCL) 10 Mg Capsule, 1 CAP PO QHS for insomina, #30 CAP 2 Refills 10/16/20 Furosemide (FUROSEMIDE) 40 Mg Tablet, 1 TAB PO DAILY for CHF, #30 TAB 5 Refills 10/16/20 Furosemide (FUROSEMIDE) 20 Mg Tablet, 20 MG PO HS for CHF, TAB 10/16/20 Lisinopril (LISINOPRIL) 20 Mg Tablet, 20 MG PO DAILY for FOR HYPERTENSION, #30 TAB 0 Refills 05/28/20 Omeprazole (OMEPRAZOLE) 20 Mg Capsule.dr, 1 CAP PO DAILY for GERD MDD 20 12/17/19 Metoprolol Succinate (METOPROLOL SUCCINATE ( XL )) 25 Mg Tab.er.24h, 1 TAB PO DAILY for HTN MDD 35 12/17/19 Baclofen (BACLOFEN) 10 Mg Tablet, 1 TAB PO TID for MUSCLE SPASMS MDD 30 12/17/19 Clopidogrel Bisulfate (CLOPIDOGREL) 75 Mg Tablet, 1 TAB PO DAILY for CAD MDD 75 12/17/19 Escitalopram Oxalate (Escitalopram Oxalate) 10 Mg Tablet, 1 TAB PO DAILY for DEPRESSION MDD 10 12/17/19 Metformin Hcl (METFORMIN HCL) 500 Mg Tablet, 1 TAB PO BID for DM MDD 1000 12/17/19 Atorvastatin Calcium (Atorvastatin Calcium) 80 Mg Tablet, 1 TAB PO DAILY for HLD MDD DAILY 12/17/19 Apixaban (ELIQUIS) 5 Mg Tablet, 1 TAB PO BID for CAD MDD 10 12/17/19 MANJINDER DEWEY MD Oct 19, 2020 08:35
--- NOTE | 2020-10-19 08:37 | PDOC ---
Provider Note Date of Service: DATE: 10/19/20 TIME: 08:37 Provider Note [id number] Justifications for Admission Other Justification MANJINDER DEWEY MD Oct 19, 2020 08:37
[2020-10-19] MEDS: metFORMIN 500 MG TABLET PO SCH (08:43)
[2020-10-19] MEDS: CITALOPRAM 20 MG TABLET. PO SCH (08:44)
[2020-10-19] MEDS: BACLOFEN 10 MG TABLET. PO SCH (08:44)
[2020-10-19] MEDS: CLOPIDOGREL BISULFATE 75 MG TABLET PO SCH (08:44)
[2020-10-19] MEDS: APIXABAN 5 MG TABLET. PO SCH (08:44)
[2020-10-19] MEDS: BACITRACIN TOPICAL OINT PACKET. TP SCH (08:45)
[2020-10-19] MEDS: LISINOPRIL 20 MG TABLET PO SCH (08:45)
[2020-10-19] MEDS: LACTOBACILLUS RHAMNOSUS GG 1 CAPSULE. PO SCH (08:45)
[2020-10-19] MEDS: METOPROLOL SUCC 24HR ER 25 MG TAB.ER.24H. PO SCH (08:45)
[2020-10-19] MEDS ORDERED: CEPHALEXIN 250 MG CAPSULE. PO SCH (09:00)
--- NOTE | 2020-10-19 09:10 | DS ---
DATE OF DISCHARGE: 10/19/2020 HOSPITAL SUMMARY: A 65-year-old white male with left-sided hemiparesis from previous stroke, also has mild diabetes, he came in with some cellulitis of the right lower extremity with 3-4 abrasions on the right lower leg. Wound cultures had no growth. Chemistry profile, blood sugars and CBC were unremarkable. Vancomycin levels were therapeutic. COVID serology was negative. X-ray of the chest, tibia and fibula were unremarkable as well. He received IV vancomycin throughout the hospital stay and is clinically improved, afebrile and able to be discharged and followed as an outpatient. FINAL DIAGNOSIS: Cellulitis of the right lower extremity secondary to infected abrasions. OPERATIONS, PROCEDURES, COMPLICATIONS, CONSULTATION: None. DISPOSITION: Cephalexin 500 mg 3 times a day for 1 week. Home meds all remain the same. Bacitracin t.i.d. to the healing abrasions on the right leg. Office followup in 1-2 weeks. IMMUNIZATION STATUS: Up-to-date. ORQUIDEA DR: Clarence TID: [id number]
[2020-10-19 10:31] VITALS: BP 106/73
--- NOTE | 2020-10-19 14:45 | NUR ---
patient in room to attempt to convince patient he needed to go to rehab to get stronger before going home. pt still adamant that he just wants to go home. IV removed by patient. after speaking w/ , patient was so upset that he would not let RN photograph leg cellulitis and refused to sign DC paperwork. pt stable upon DC. RN escorted patient down to entrance via his personal w/c.
--- NOTE | 2020-10-19 14:55 | NUR ---
SW following. Discussed with RN, discharge order for home with home health. SW faxed to [facility] who pt is current with. No further SW needs.
== END 2020-10-19 14:45 | disposition home health service (06) | DRG 603 ==
LOC: ER 18:02 → 5 NORTH 20:50
PROVIDERS: ADMIT Family Medicine; ATTEND Family Medicine
DX: L03.115 Cellulitis of right lower limb (principal); I69.359 Hemiplegia and hemiparesis following cerebral infarction affecting unspecified side; L97.919 Non-pressure chronic ulcer of unspecified part of right lower leg with unspecified severity; S80.811A Abrasion, right lower leg, initial encounter; E78.00 Pure hypercholesterolemia, unspecified; I11.0 Hypertensive heart disease with heart failure; I48.91 Unspecified atrial fibrillation; I50.9 Heart failure, unspecified; Z87.891 Personal history of nicotine dependence; Z66 Do not resuscitate; Z79.899 Other long term (current) drug therapy; Z20.822 Contact with and (suspected) exposure to COVID-19; W18.39XA Other fall on same level, initial encounter; Y93.89 Activity, other specified; Y92.89 Other specified places as the place of occurrence of the external cause; Y99.8 Other external cause status; E11.622 Type 2 diabetes mellitus with other skin ulcer
CPT/HCPCS: 36415; 71045; 73590; 80053; 80202; 82565; 82962; 83605; 83690; 83880; 84484; 85025; 87040; 87426; 93005; 96365; 96366; J0690; J1815; J3370; J7040; 97110-GP; 99285-25; G0378

== ENCOUNTER 2020-12-10 14:49 | Emergency (ER) | payer OTHER ==
[~2020-12-10] VITALS: Ht 170.2 cm; Wt 100.0 kg
[~2020-12-10 14:49] MED LIST changes: +DOXE10CA PO; +FURO20TA3 PO
[2020-12-10 17:21] LABS: BASO # 0.1 x10^3/uL (0.0-0.2); BASO % 1 % (0-3); EOS # 0.3 x10^3/uL (0.0-0.7); EOS % 1 % (0-3); HEMATOCRIT 40.9 % (39.0-53.0); HEMOGLOBIN 13.4 g/dL (13.0-17.5); LYMPH # 1.3 x10^3/uL (1.0-4.8); LYMPH % 6 % (24-48); MEAN CORPUSCULAR HEMOGLOBIN 27 pg (25-35); MEAN CORPUSCULAR HGB CONC 33 g/dL (31-37); MEAN CORPUSCULAR VOLUME 83 fL (79-100); MONO # 1.3 x10^3/uL (0.0-1.1); MONO % 6 % (0-9); NEUT # 18.8 x10^3/uL (1.8-7.7); NEUT % 87 % (31-73); PLATELET COUNT 350 x10^3/uL (140-400); RED BLOOD COUNT 4.95 x10^6/uL (4.30-5.70); RED CELL DISTRIBUTION WIDTH 16.3 % (11.5-14.5); WHITE BLOOD COUNT 21.7 x10^3/uL (4.0-11.0)
[2020-12-10 17:24] LABS: CALCIUM 8.7 mg/dL (8.5-10.1); GFR 75.2; POTASSIUM 3.9 mmol/L (3.5-5.1)
--- NOTE | 2020-12-10 17:37 | PHYS DOC ---
Past Medical History Past Medical History: CHF, CVA, Diabetes-Type II, High Cholesterol, Hypertension (MARCELO SANTO MD) Past Surgical History: Other Additional Past Surgical Histo: eye surgery for lens bilaterally (MARCELO SANTO MD) Smoking Status: Never Smoker Alcohol Use: None Drug Use: None (MARCELO SANTO MD) General Adult EDM: Chief Complaint: LOWER EXTREMITY SWELLING HPI: HPI: Patient is a 65 year old male with history of HTN, HLD, DM, stroke with left- sided deficits on Eliquis who presents with painless left lower extremity swelling. Left lower extremity is been swollen for the past 2 days. States that this is happened before when he has had a high salt in his diet, which he has done lately. Denies any pain to the extreme lower extremity, rash, fever, or chills. He does have a small scratch on the lateral leg, and states that this has been healing up well. Was appropriately bandaged. Denies any shortness of breath, chest pain. No cough or congestion. Denies dysuria, urgency, frequency. Denies abdominal pain, nausea, or vomiting. Denies any skin changes. Denies any diarrhea. Does have a history of C. difficile recently. (MARCELO SANTO MD) Review of Systems: Review of Systems: Constitutional: Denies fever or chills. [] Eyes: Denies change in visual acuity. [] HENT: Denies nasal congestion or sore throat. [] Respiratory: Denies cough or shortness of breath. [] Cardiovascular: Denies chest pain. Reports left lower extremity edema. GI: Denies abdominal pain, nausea, vomiting, bloody stools or diarrhea. [] : Denies dysuria. [] Musculoskeletal: Denies back pain or joint pain. [] Integument: Denies rash reports healing left lower extremity 1 cm wound.. [] Neurologic: Denies headache, focal weakness or sensory changes. [] Endocrine: Denies polyuria or polydipsia. [] Lymphatic: Denies swollen glands. [] Psychiatric: Denies depression or anxiety. [] (MARCELO SANTO MD) Heart Score: C/O Chest Pain: No (MARCELO SANTO MD) Allergies: Allergies: Allergies Coded Allergies Type Severity Reaction Last Updated Verified I S O L A T I O N *CONTACT* Allergy Unknown 12/10/20 Yes No Known Medication Allergies Allergy Unknown 12/10/20 Yes (MARCELO SANTO MD) Physical Exam: PE: Constitutional: Well developed, well nourished, no acute distress, non-toxic appearance. [] HENT: Normocephalic, atraumatic, bilateral external ears normal, oropharynx moist, no oral exudates, nose normal. [] Eyes: PERRLA, EOMI, conjunctiva normal, no discharge. [] Neck: Normal range of motion, no tenderness, supple, no stridor. [] Cardiovascular:Heart rate regular rhythm, no murmur [] Lungs & Thorax: Bilateral breath sounds clear to auscultation [] Abdomen: Bowel sounds normal, soft, no tenderness, no masses, no pulsatile masses. [] Skin: Warm, dry, no erythema, no rash. [] Back: No tenderness, no CVA tenderness. [] Extremities: Left lower extremity is notably more edematous than the right. D istal pulses intact. Good cap refill. Has a small wound that appears like a small abrasion on the left lateral leg. Appropriately bandaged. Nontender. No subcu crepitus noted. No drainage. Neurologic: Alert and oriented X 3, normal motor function, normal sensory function, no focal deficits noted. [] Psychologic: Affect normal, judgement normal, mood normal. [] (MARCELO SANTO MD) Current Patient Data: Labs: Laboratory Tests Test 12/10/20 17:00 12/10/20 17:05 White Blood Count 21.7 x10^3/uL (4.0-11.0) H Red Blood Count 4.95 x10^6/uL (4.30-5.70) Hemoglobin 13.4 g/dL (13.0-17.5) Hematocrit 40.9 % (39.0-53.0) Mean Corpuscular Volume 83 fL (79-100) Mean Corpuscular Hemoglobin 27 pg (25-35) Mean Corpuscular Hemoglobin Concent 33 g/dL (31-37) Red Cell Distribution Width 16.3 % (11.5-14.5) H Platelet Count 350 x10^3/uL (140-400) Neutrophils (%) (Auto) 87 % (31-73) H Lymphocytes (%) (Auto) 6 % (24-48) L Monocytes (%) (Auto) 6 % (0-9) Eosinophils (%) (Auto) 1 % (0-3) Basophils (%) (Auto) 1 % (0-3) Neutrophils # (Auto) 18.8 x10^3/uL (1.8-7.7) H Lymphocytes # (Auto) 1.3 x10^3/uL (1.0-4.8) Monocytes # (Auto) 1.3 x10^3/uL (0.0-1.1) H Eosinophils # (Auto) 0.3 x10^3/uL (0.0-0.7) Basophils # (Auto) 0.1 x10^3/uL (0.0-0.2) Platelet Estimate Pending Sodium Level 134 mmol/L (136-145) L Potassium Level 3.9 mmol/L (3.5-5.1) Chloride Level 95 mmol/L (98-107) L Carbon Dioxide Level 30 mmol/L (21-32) Anion Gap 9 (6-14) Blood Urea Nitrogen 15 mg/dL (8-26) Creatinine 1.0 mg/dL (0.7-1.3) Estimated GFR (Cockcroft-Gault) 75.2 Glucose Level 138 mg/dL (70-99) H Calcium Level 8.7 mg/dL (8.5-10.1) Laboratory Tests 12/10/20 17:00 Laboratory Tests 12/10/20 17:05 Vital Signs: Vital Signs Date Time Temp Pulse Resp B/P (MAP) Pulse Ox O2 Delivery O2 Flow Rate FiO2 12/10/20 15:33 98.3 98 12 131/78 (95) 97 Room Air 98.3 (MARCELO SANTO MD) Labs: Laboratory Tests Test 12/10/20 17:00 12/10/20 17:05 12/10/20 18:50 White Blood Count 21.7 x10^3/uL (4.0-11.0) Red Blood Count 4.95 x10^6/uL (4.30-5.70) Hemoglobin 13.4 g/dL (13.0-17.5) Hematocrit 40.9 % (39.0-53.0) Mean Corpuscular Volume 83 fL (79-100) Mean Corpuscular Hemoglobin 27 pg (25-35) Mean Corpuscular Hemoglobin Concent 33 g/dL (31-37) Red Cell Distribution Width 16.3 % (11.5-14.5) Platelet Count 350 x10^3/uL (140-400) Neutrophils (%) (Auto) 87 % (31-73) Lymphocytes (%) (Auto) 6 % (24-48) Monocytes (%) (Auto) 6 % (0-9) Eosinophils (%) (Auto) 1 % (0-3) Basophils (%) (Auto) 1 % (0-3) Neutrophils # (Auto) 18.8 x10^3/uL (1.8-7.7) Lymphocytes # (Auto) 1.3 x10^3/uL (1.0-4.8) Monocytes # (Auto) 1.3 x10^3/uL (0.0-1.1) Eosinophils # (Auto) 0.3 x10^3/uL (0.0-0.7) Basophils # (Auto) 0.1 x10^3/uL (0.0-0.2) Segmented Neutrophils % 84 % (35-66) Band Neutrophils % 4 % (0-9) Lymphocytes % 7 % (24-48) Monocytes % 4 % (0-10) Eosinophils % 1 % (0-5) Platelet Estimate Adequate (ADEQUATE) Sodium Level 134 mmol/L (136-145) Potassium Level 3.9 mmol/L (3.5-5.1) Chloride Level 95 mmol/L (98-107) Carbon Dioxide Level 30 mmol/L (21-32) Anion Gap 9 (6-14) Blood Urea Nitrogen 15 mg/dL (8-26) Creatinine 1.0 mg/dL (0.7-1.3) Estimated GFR (Cockcroft-Gault) 75.2 Glucose Level 138 mg/dL (70-99) Calcium Level 8.7 mg/dL (8.5-10.1) Urine Collection Type Unknown Urine Color Yellow Urine Clarity Clear Urine pH 7.0 (<5.0-8.0) Urine Specific [place] 1.020 (1.000-1.030) Urine Protein Negative mg/dL (NEG-TRACE) Urine Glucose (UA) >=1000 mg/dL (NEG) Urine Ketones (Stick) Negative mg/dL (NEG) Urine Blood Trace (NEG) Urine Nitrite Negative (NEG) Urine Bilirubin Negative (NEG) Urine Urobilinogen Dipstick 1.0 mg/dL (0.2 mg/dL) Urine Leukocyte Esterase Small (NEG) Urine RBC 3-5 /HPF (0-2) Urine WBC Tntc /HPF (0-4) Urine Bacteria 0 /HPF (0-FEW) (TONIO OROZCO DO) EKG: EKG: [] (MARCELO SANTO MD) Radiology/Procedures: Radiology/Procedures: [] Impression: [facility] [address] [place] [address] IMAGING REPORT Signed PATIENT: TC CIFUENTES ACCOUNT: [id number] : 1955 LOCATION: ER AGE: 65 SEX: M EXAM STATUS: REG ER ORD. PHYSICIAN: MARCELO SANTO MD REASON: unilateral swelling PROCEDURE: VENOUS LOWER EXTREMITY LEFT Examination: LEFT LOWER EXTREMITY - UNILATERAL VENOUS DOPPLER Technique: Ultrasound evaluation of the left lower extremity was performed from the groin to the upper calf with pete scale, spectral and color doppler evaluation. Indication: Leg swelling Comparison: None Findings: There is normal venous flow and compressibility of left common femoral vein, femoral vein, popliteal vein, and visualized proximal calf veins. Impression: No evidence for deep vein thrombosis of left lower extremity from the level of the calf veins to the groins. Electronically signed by: Geovany Yancey MD (12/10/2020 5:37 PM) [facility] DICTATED and SIGNED BY: GEOVANY YANCEY MD DATE: 12/10/20 [id number] (MARCELO SANTO MD) Radiology/Procedures: PROCEDURE: TIBIA FIBULA LEFT Two-view left tibia-fibula HISTORY: Lateral leg wound AP lateral views The visualized osseous structures appear normal. There is diffuse soft tissue edema. IMPRESSION: No acute bony abnormality. Electronically signed by: Farhat Langley III, MD (12/10/2020 6:48 PM) XR CHEST 1V Clinical History: Reason: leukocytosis, tachycardia / Spl. Instructions: / History: Technique: AP view of the chest was obtained at 12/10/2020 5:31 PM. Comparison: October 15, 2020. Findings: The cardiomediastinal silhouette is normal. The pulmonary vasculature is normal. Reticular opacities are seen previously are likely chronic pulmonary fibrosis. Impression: Stable appearance of the chest. Electronically signed by: Farhat Langley III, MD (12/10/2020 6:20 PM) (TONIO OROZCO DO) Course & Med Decision Making: Course & Med Decision Making Pertinent Labs and Imaging studies reviewed. (See chart for details) Patient is 65-year-old male with history of stroke and left-sided hemiparesis on Eliquis who presents with painless left lower extremity edema for the past 2 days. It is notably larger than the right leg on examination. Good distal pulses. Has a small wound on the lateral aspect of the leg that does not appear infected, and is not tender to the touch. DVT ultrasound was negative. BMP was unremarkable, with good kidney function and electrolytes. CBC revealed a WBC of 21K, raising concern for occult infection. Patient has no evidence of abdominal pain/tenderness, pulmonary symptoms, skin symptoms aside from his wound as noted above, or urinary symptoms. He does have a history of C. difficile, but does not have history of recent diarrhea. I have broadened work-up including a chest x-ray, urinalysis, and x-ray of the left lower extremity. Patient will be signed out to oncoming physician with ultimate disposition pending finalization of work-up. 181 (MARCELO SANTO MD) Course & Med Decision Making 1800: Assumed care from Dr. Santo at this time Patient's current medical course discussed in rounds and patient is currently updated with medical plan Planning x-ray, urine, reassessment 1920: Patient was reassessed by me. His urine shows sterile pyuria, he is not having any urinary or abdominal pain symptoms. His abdomen is nontender and benign. He states that the wound on his left leg is improving, clinically there is no evidence for infection in the left leg. His white count is elevated today but there is no clear source of infection. We will start him on Keflex to cover for subclinical UTI versus developing skin infection. He appears well upon discharge. (TONIO OROZCO DO) Dragon Disclaimer: Dragon Disclaimer: This electronic medical record was generated, in whole or in part, using a voice recognition dictation system. (MARCELO SANTO MD) Departure Departure Impression: Primary Impression: Edema of left lower extremity Additional Impression: Leukocytosis Disposition: HOME / SELF CARE / HOMELESS Condition: STABLE Referrals: VY MCDOWELL MD (PCP) Patient Instructions: Cellulitis, [id number] Scripts Cephalexin (KEFLEX) 500 Mg Capsule 1 CAP PO BID for 7 Days, #14 CAP Prov: TONIO OROZCO DO 12/10/20 MARCELO SANTO MD Dec 10, 2020 17:37 TONIO OROZCO DO Dec 10, 2020 19:20
--- NOTE | 2020-12-10 17:40 | RAD ---
Examination: LEFT LOWER EXTREMITY - UNILATERAL VENOUS DOPPLER Technique: Ultrasound evaluation of the left lower extremity was performed from the groin to the uppe r calf with pete scale, spectral and color doppler evaluation. Indication: Leg swelling Comparison: None Findings: There is normal venous flow and compressibility of left common femoral vein, femoral vein, popliteal vein, and visualized proximal calf veins. Impression: No evidence for deep vein thrombosis of left lower extremity from the level of the calf v eins to the groins. Electronically signed by: Geovany Reilly MD (12/10/2020 5:37 PM) [facility]
[2020-12-10 18:13] LABS: % BANDS 4 % (0-9); % EOS 1 % (0-5); % LYMPHS 7 % (24-48); % MONOS 4 % (0-10); % SEGS 84 % (35-66); PLT ESTIMATE ADEQUATE (ADEQUATE)
--- NOTE | 2020-12-10 18:23 | RAD ---
XR CHEST 1V Clinical History: Reason: leukocytosis, tachycardia / Spl. Instructions: / History: Technique: AP view of the chest was obtained at 12/10/2020 5:31 PM. Comparison: October 15, 2020. Findings: The cardiomediastinal silhouette is normal. The pulmonary vasculature is normal. Reticular opacities are seen previously are likely chronic pulmonary fibrosis. Impression: Stable appearance of the chest. Electronically signed by: Farhat Langley III, MD (12/10/2020 6:20 PM) [facility]
--- NOTE | 2020-12-10 18:50 | RAD ---
Two-view left tibia-fibula HISTORY: Lateral leg wound AP lateral views The visualized osseous structures appear normal. There is diffuse soft tissue edema. IMPRESSION: No acute bony abnormality. Electronically signed by: Farhat Langley III, MD (12/10/2020 6:48 PM) [facility]
[2020-12-10 19:01] LABS: BILIRUBIN,URINE NEGATIVE (NEG); CLARITY,URINE CLEAR; COLOR,URINE YELLOW; NITRITE,URINE NEGATIVE (NEG); PROTEIN,URINE NEGATIVE (NEG-TRACE)
[2020-12-10 19:09] LABS: WBC,URINE TNTC /HPF (0-4)
[2020-12-10 19:10] LABS: BACTERIA,URINE 0 /HPF (0-FEW)
[2020-12-10 19:16] VITALS: BP 145/67
[2020-12-10] MEDS ORDERED: CEPH500C PO ×2 (19:28→19:32)
--- NOTE | 2020-12-12 09:24 | EKG ---
[facility] [address] [place] [address] Test Date: 2020-12-10 Test Time: 16:50:41 Pat Name: TC CIFUENTES Department: Room: Gender: M Wood Type Cutter: : 1955 Requested By: TONIO OROZCO Order Number: [id number] Reading MD: Uday Sheriff MD Measurements Intervals [place] Rate: 99 P: 102 GA: 138 QRS: 180 QRSD: 62 T: 130 QT: 382 QTc: 496 Interpretive Statements BASELINE ARTIFACT PROBABLE SR NON-SPECIFIC ST/T CHANGES Electronically Signed On 12-13-2020 11:10:56 CDT by Uday Sheriff MD
--- NOTE | 2020-12-13 17:34 | VNOTE ---
CALL BACK NOTE CALL BACK Microbiology 12/10/20 Urine Culture - Final, Complete 12/10/20 Antimicrobic Susceptibility - Final, Complete Called the patient 12/13/2020 and spoke to next of kin/person to notify, Ofelia Green. I informed her that the patient's urine did colonize for bacteria that will need IV antibiotic treatment. She reports that his initial complaint of leg swelling is much improved, and he continues to not have any urinary symptoms. Patient states that the patient will not likely return to the hospital for IV antibiotic treatment, but I encouraged her to do so. PHILIP RICKS Dec 13, 2020 17:34
== END 2020-12-10 19:56 | disposition home or self-care (01) ==
LOC: ER 14:49
DX: R60.0 Localized edema (principal); D72.829 Elevated white blood cell count, unspecified; E78.00 Pure hypercholesterolemia, unspecified; I11.0 Hypertensive heart disease with heart failure; I50.9 Heart failure, unspecified; E11.9 Type 2 diabetes mellitus without complications; Z86.73 Personal history of transient ischemic attack (TIA), and cerebral infarction without residual deficits; Z91.041 Radiographic dye allergy status
CPT/HCPCS: 36415; 71045; 73590; 80048; 81001; 85007; 85025; 87086; 87491; 87591; 93005; 93971; 99285-25

== ENCOUNTER 2020-12-13 18:48 | Inpatient (IN) | payer OTHER ==
[~2020-12-13] VITALS: Ht 170.2 cm; Wt 110.2 kg
[~2020-12-13 18:48] MED LIST changes: +CEPH500C PO
[2020-12-13] MEDS ORDERED: IV NORMAL SALINE 1000ML BAG 1,000 ML IV ONE (20:30)
[2020-12-13] MEDS ORDERED: CEFEPIME HCL IV Push 2 GM VIAL. IVP ONE (20:30)
[2020-12-13 21:01] LABS: BASO # 0.1 x10^3/uL (0.0-0.2); BASO % 1 % (0-3); EOS # 0.5 x10^3/uL (0.0-0.7); EOS % 6 % (0-3); HEMATOCRIT 37.1 % (39.0-53.0); HEMOGLOBIN 12.4 g/dL (13.0-17.5); LYMPH # 1.7 x10^3/uL (1.0-4.8); LYMPH % 19 % (24-48); MEAN CORPUSCULAR HEMOGLOBIN 28 pg (25-35); MEAN CORPUSCULAR HGB CONC 33 g/dL (31-37); MEAN CORPUSCULAR VOLUME 82 fL (79-100); MONO # 1.1 x10^3/uL (0.0-1.1); MONO % 13 % (0-9); NEUT # 5.4 x10^3/uL (1.8-7.7); NEUT % 62 % (31-73); PLATELET COUNT 282 x10^3/uL (140-400); RED CELL DISTRIBUTION WIDTH 16.5 % (11.5-14.5); WHITE BLOOD COUNT 8.8 x10^3/uL (4.0-11.0)
[2020-12-13 21:11] LABS: CALCIUM 8.4 mg/dL (8.5-10.1); GFR 75.2; POTASSIUM 3.7 mmol/L (3.5-5.1)
[2020-12-13 21:17] LABS: ALBUMIN 2.9 g/dL (3.4-5.0); ALBUMIN/GLOBULIN RATIO 0.6 (1.0-1.7); TOTAL BILIRUBIN 0.4 mg/dL (0.2-1.0); TOTAL PROTEIN 7.7 g/dL (6.4-8.2)
--- NOTE | 2020-12-13 21:32 | RAD ---
CT ABDOMEN+PELVIS WO INDICATION: uti, r/o obstruction EXAM: Noncontrast CT of the abdomen and pelvis. Coronal and sagittal reformatted images were perform ed. PQRS compliance statement: One or more of the following individualized dose reduction techniques were utilized for this examinat ion: 1. Automated exposure control 2. Adjustment of the mA and/or kV according to patient size 3. Use of iterative reconstruction technique COMPARISON: None FINDINGS: No free air, free fluid, or fluid collection. Lower chest: The visualized lower lungs are aerated. No pleural or pericardial effusion. Small hiatal hernia. ABDOMEN: Liver: The noncontrast liver is homogeneous in attenuation. Gallbladder and biliary: Normal gallbladder without radiopaque stone. Normal caliber bile ducts. Spleen: Normal spleen. Pancreas: The noncontrast pancreas is homogeneous in attenuation without peripancreatic inflammatory changes. Adrenal glands: Left adrenal 11 mm adenoma Kidneys and ureters: No opaque urinary calculi. No hydronephrosis. GI tract: The stomach is decompressed and poorly evaluated. Normal caliber small bowel and colon. Nor mal appendix. Vascular structures: Normal caliber abdominal aorta. Mild aortoiliac atherosclerotic disease Lymph nodes: No lymphadenopathy in the abdomen or pelvis. PELVIS: Genitourinary system: Bladder wall thickening and adjacent inflammation. Ovoid 3.0 x 1.5 cm fluid den sity structure along the posterolateral aspect of the bladder on the left. This appears distinct from the left ureter. SKELETAL STRUCTURES AND SOFT TISSUES: Degenerative changes of the spine. Small periumbilical hernia c ontaining fat and a short segment of small bowel without evidence of obstruction. Left posterolateral gluteal region subcutaneous nodule measuring 2.4 cm, likely sebaceous cyst. IMPRESSION: 1. Mild bladder wall thickening with stranding inflammation, likely cystitis. No hydronephrosis or op aque urinary calculi. 2. Ovoid 3 cm fluid density structure along the posterolateral aspect of the bladder on the left, pro bably a bladder diverticulum. 3. Small periumbilical hernia containing fat and a short segment of small bowel without evidence of o bstruction. Electronically signed by: Babar Davis MD (12/13/2020 9:30 PM) [facility]OSPITALKeila
[2020-12-13 22:10] LABS: BILIRUBIN,URINE NEGATIVE (NEG); CLARITY,URINE CLEAR; COLOR,URINE YELLOW; NITRITE,URINE POSITIVE (NEG); PROTEIN,URINE NEGATIVE (NEG-TRACE)
[2020-12-13 22:19] LABS: AMORPHOUS SEDIMENT,UR PRESENT /HPF; BACTERIA,URINE MANY /HPF (0-FEW); WBC,URINE 20-40 /HPF (0-4)
[2020-12-13] MEDS ORDERED: ONDANSETRON PF 4 MG/2 ML VIAL. IVP PRN (23:00)
--- NOTE | 2020-12-13 23:00 | PHYS DOC ---
Past Medical History Past Medical History: CHF, CVA, Diabetes-Type II, High Cholesterol, Hypertension Past Surgical History: Other Additional Past Surgical Histo: eye surgery for lens bilaterally Smoking Status: Never Smoker Alcohol Use: None Drug Use: None General Adult EDM: Chief Complaint: PAIN ON URINATION HPI: HPI: 65-year-old male past medical history of diabetes, hypertension, hyperlipidemia, CHF and CVA on eliquis, presents to the ED after a call back concerning for antibacterial resistant Pseudomonas from urine culture. Patient was seen in the ED 3 days ago for lower extremity swelling and treated with Keflex for cellulitis. At that time patient had a white count of 21, no urinary symptoms. In the emergency department patient denies any dysuria, hematuria, fever, chills, nausea, vomiting, abdominal/back/flank pain. Pt states "I feel fine." Reports he is taking the prescribed keflex. Review of Systems: Review of Systems: Constitutional: Denies fever or chills. [] Eyes: Denies change in visual acuity. [] HENT: Denies nasal congestion or sore throat. [] Respiratory: Denies cough or shortness of breath. [] Cardiovascular: Denies chest pain or edema. [] GI: Denies abdominal pain, nausea, vomiting, bloody stools or diarrhea. [] : Denies dysuria or hematuria Musculoskeletal: Denies back pain or joint pain. [] Integument: Denies diaphoresis or blistering lesions [] Neurologic: Denies headache, focal weakness or sensory changes. [] Endocrine: Denies polyuria or polydipsia. [] Lymphatic: Denies swollen glands. [] Psychiatric: Denies depression or anxiety. [] Heart Score: C/O Chest Pain: No Risk Factors: Risk Factors: DM, Current or recent (<one month) smoker, HTN, HLP, family history of CAD, obesity. Risk Scores: Score 0 - 3: 2.5% MACE over next 6 weeks - Discharge Home Score 4 - 6: 20.3% MACE over next 6 weeks - Admit for Clinical Observation Score 7 - 10: 72.7% MACE over next 6 weeks - Early Invasive Strategies Current Medications: Current Medications Medications (Trade) Dose Ordered Sig/Elvia Start Time Stop Time Status Last Admin Dose Admin Cefepime HCl (Maxipime) 2 gm 1X ONCE 12/13/20 20:30 12/13/20 20:31 DC 12/13/20 21:57 2 GM Sodium Chloride 1,000 ml @ 1,000 mls/hr 1X ONCE 12/13/20 20:30 12/13/20 21:29 DC 12/13/20 21:25 1,000 MLS/HR Allergies: Allergies: Allergies Coded Allergies Type Severity Reaction Last Updated Verified I S O L A T I O N *CONTACT* Allergy Unknown 12/10/20 Yes No Known Medication Allergies Allergy Unknown 12/10/20 Yes Physical Exam: PE: Constitutional: Well developed, well nourished, no acute distress, non-toxic appearance. HENT: Normocephalic, atraumatic, Eyes: EOMI, conjunctiva normal, no discharge. Neck: Normal range of motion, supple, Cardiovascular: S1/2 present, regular rhythm Lungs & Thorax: Speaking in full sentences, bilateral equal chest rise, no tachypnea or increased work of breathing Abdomen: soft, no tenderness, Skin: Warm, dry, Back: No tenderness, no CVA tenderness. [] Extremities: No tenderness, no cyanosis, Neurologic: Alert and oriented X 3, normal motor function, normal sensory function, no focal deficits noted. [] Psychologic: Affect normal, judgement normal, mood normal. [] Current Patient Data: Labs: Laboratory Tests Test 12/13/20 20:50 12/13/20 21:50 12/13/20 21:55 White Blood Count 8.8 x10^3/uL (4.0-11.0) Red Blood Count 4.50 x10^6/uL (4.30-5.70) Hemoglobin 12.4 g/dL (13.0-17.5) L Hematocrit 37.1 % (39.0-53.0) L Mean Corpuscular Volume 82 fL (79-100) Mean Corpuscular Hemoglobin 28 pg (25-35) Mean Corpuscular Hemoglobin Concent 33 g/dL (31-37) Red Cell Distribution Width 16.5 % (11.5-14.5) H Platelet Count 282 x10^3/uL (140-400) Neutrophils (%) (Auto) 62 % (31-73) Lymphocytes (%) (Auto) 19 % (24-48) L Monocytes (%) (Auto) 13 % (0-9) H Eosinophils (%) (Auto) 6 % (0-3) H Basophils (%) (Auto) 1 % (0-3) Neutrophils # (Auto) 5.4 x10^3/uL (1.8-7.7) Lymphocytes # (Auto) 1.7 x10^3/uL (1.0-4.8) Monocytes # (Auto) 1.1 x10^3/uL (0.0-1.1) Eosinophils # (Auto) 0.5 x10^3/uL (0.0-0.7) Basophils # (Auto) 0.1 x10^3/uL (0.0-0.2) Sodium Level 133 mmol/L (136-145) L Potassium Level 3.7 mmol/L (3.5-5.1) Chloride Level 96 mmol/L (98-107) L Carbon Dioxide Level 28 mmol/L (21-32) Anion Gap 9 (6-14) Blood Urea Nitrogen 22 mg/dL (8-26) Creatinine 1.0 mg/dL (0.7-1.3) Estimated GFR (Cockcroft-Gault) 75.2 BUN/Creatinine Ratio 22 (6-20) H Glucose Level 111 mg/dL (70-99) H Lactic Acid Level 1.0 mmol/L (0.4-2.0) Calcium Level 8.4 mg/dL (8.5-10.1) L Total Bilirubin 0.4 mg/dL (0.2-1.0) Aspartate Amino Transferase (AST) 26 U/L (15-37) Alanine Aminotransferase (ALT) 23 U/L (16-63) Alkaline Phosphatase 71 U/L (46-116) Total Protein 7.7 g/dL (6.4-8.2) Albumin 2.9 g/dL (3.4-5.0) L Albumin/Globulin Ratio 0.6 (1.0-1.7) L Urine Collection Type Unknown Urine Color Yellow Urine Clarity Clear Urine pH 5.0 (<5.0-8.0) Urine Specific Beattie 1.020 (1.000-1.030) Urine Protein Negative mg/dL (NEG-TRACE) Urine Glucose (UA) >=1000 mg/dL (NEG) Urine Ketones (Stick) Negative mg/dL (NEG) Urine Blood Large (NEG) Urine Nitrite Positive (NEG) Urine Bilirubin Negative (NEG) Urine Urobilinogen Dipstick 1.0 mg/dL (0.2 mg/dL) Urine Leukocyte Esterase Small (NEG) Urine RBC 6-10 /HPF (0-2) Urine WBC 20-40 /HPF (0-4) Urine Squamous Epithelial Cells Few /LPF Urine Amorphous Sediment Present /HPF Urine Bacteria Many /HPF (0-FEW) Urine Mucus Mod /LPF SARS-CoV-2 Antigen (Rapid) Negative (NEGATIVE) Laboratory Tests 12/13/20 20:50 Laboratory Tests 12/13/20 20:50 Vital Signs: Vital Signs Date Time Temp Pulse Resp B/P (MAP) Pulse Ox O2 Delivery O2 Flow Rate FiO2 12/13/20 20:27 98.4 79 16 139/75 (96) 97 Room Air 98.4 EKG: EKG: [] Radiology/Procedures: Radiology/Procedures: IMAGING REPORT Signed PATIENT: TC CIFUENTES ACCOUNT: [id number] : 1955 LOCATION: ER AGE: 65 SEX: M EXAM STATUS: PRE ER ORD. PHYSICIAN: STEVE MORILLO DO REASON: uti, r/o obstruction PROCEDURE: CT ABDOMEN PELVIS WO CONTRAST CT ABDOMEN+PELVIS WO INDICATION: uti, r/o obstruction EXAM: Noncontrast CT of the abdomen and pelvis. Coronal and sagittal reformatted images were performed. PQRS compliance statement: One or more of the following individualized dose reduction techniques were utilized for this examination: 1. Automated exposure control 2. Adjustment of the mA and/or kV according to patient size 3. Use of iterative reconstruction technique COMPARISON: None FINDINGS: No free air, free fluid, or fluid collection. Lower chest: The visualized lower lungs are aerated. No pleural or pericardial effusion. Small hiatal hernia. ABDOMEN: Liver: The noncontrast liver is homogeneous in attenuation. Gallbladder and biliary: Normal gallbladder without radiopaque stone. Normal caliber bile ducts. Spleen: Normal spleen. Pancreas: The noncontrast pancreas is homogeneous in attenuation without per ipancreatic inflammatory changes. Adrenal glands: Left adrenal 11 mm adenoma Kidneys and ureters: No opaque urinary calculi. No hydronephrosis. GI tract: The stomach is decompressed and poorly evaluated. Normal caliber small bowel and colon. Normal appendix. Vascular structures: Normal caliber abdominal aorta. Mild aortoiliac atherosclerotic disease Lymph nodes: No lymphadenopathy in the abdomen or pelvis. PELVIS: Genitourinary system: Bladder wall thickening and adjacent inflammation. Ovoid 3.0 x 1.5 cm fluid density structure along the posterolateral aspect of the bladder on the left. This appears distinct from the left ureter. SKELETAL STRUCTURES AND SOFT TISSUES: Degenerative changes of the spine. Small periumbilical hernia containing fat and a short segment of small bowel without evidence of obstruction. Left posterolateral gluteal region subcutaneous nodule measuring 2.4 cm, likely sebaceous cyst. IMPRESSION: 1. Mild bladder wall thickening with stranding inflammation, likely cystitis. No hydronephrosis or opaque urinary calculi. 2. Ovoid 3 cm fluid density structure along the posterolateral aspect of the bladder on the left, probably a bladder diverticulum. 3. Small periumbilical hernia containing fat and a short segment of small bowel without evidence of obstruction. Electronically signed by: Chao Davis MD (12/13/2020 9:30 PM) [facility] [place] DICTATED and SIGNED BY: CHAO DAVIS MD DATE: 12/13/[id number] 0 Course & Med Decision Making: Course & Med Decision Making Pertinent Labs and Imaging studies reviewed. (See chart for details) Concern for nitrite positive UTI/cystitis in a patient that does not meet sepsis criteria. Leukocytosis resolved from 3 days ago. Patient is asymptomatic. Patient is resistant to fluoroquinolones and ceftazidime. Has intermittent sen sitivity to aztreonam. Was given cefepime in the emergency department. Will admit for further medical management. Patient stable at time of admission and agrees with this plan. I have spoken with the patient and/or caregivers. I have explained the patient's condition, diagnosis and treatment plan based on the information available to me at this time. I have answered the patient's and/or caregivers questions and answered any concerns. The patient and/or caregivers have as good an understanding of the patient's diagnosis, condition and treatment plan as can be expected at this point. The patient has been stabilized within the capability of the emergency department. The patient will be transported for further care and management or will be moved to an observation or inpatient service. I have communicated with the staff or medical practitioner taking over this patient's care. Dragon Disclaimer: Dragon Disclaimer: This electronic medical record was generated, in whole or in part, using a voice recognition dictation system. Departure Departure Impression: Primary Impression: UTI (urinary tract infection) Additional Impression: Resistance to multiple antibiotics Disposition: ADMITTED INPATIENT Admitting Physician: Fred Sommers Trusty, Whitney Condition: STABLE Referrals: VY MCDOWELL MD (PCP) [facility] Dec 13, 2020 22:59
[2020-12-13] MEDS ORDERED: cefOXitin SODIUM IV Push 2 GM VIAL. IVP ONE (23:30)
[2020-12-13] MEDS ORDERED: IV NORMAL SALINE 1000ML BAG 1,000 ML IV SCH ×2 (23:30)
[2020-12-13 23:55] VITALS: BP 127/61
[2020-12-14] MEDS ORDERED: CEPHALEXIN 250 MG CAPSULE. PO SCH (01:00)
[2020-12-14] MEDS ORDERED: ANTI-COAG MONITOR BY PHARMACY. MC PRN (01:00)
[2020-12-14] MEDS ORDERED: FUROSEMIDE 20 MG TABLET PO SCH (01:00)
[2020-12-14] MEDS: APIXABAN 5 MG TABLET. PO SCH ×3 (01:13→20:46)
[2020-12-14] MEDS: ATORVASTATIN CALCIUM 40 MG TABLET. PO SCH ×2 (01:14→20:46)
[2020-12-14] MEDS: BACLOFEN 10 MG TABLET. PO SCH ×4 (01:14→20:45)
[2020-12-14] MEDS: DOXEPIN HCL 10 MG CAPSULE. PO SCH ×2 (01:16→20:46)
[2020-12-14 03:02] VITALS: BP 142/70
[2020-12-14 07:00] VITALS: BP 126/80
[2020-12-14] MEDS: FUROSEMIDE 40 MG TABLET. PO SCH (09:17)
[2020-12-14] MEDS: CITALOPRAM 20 MG TABLET. PO SCH (09:17)
[2020-12-14] MEDS: LISINOPRIL 20 MG TABLET PO SCH (09:18)
[2020-12-14] MEDS: METOPROLOL SUCC 24HR ER 25 MG TAB.ER.24H. PO SCH (09:18)
[2020-12-14] MEDS: metFORMIN 500 MG TABLET PO SCH ×2 (09:18→18:13)
[2020-12-14] MEDS: CLOPIDOGREL BISULFATE 75 MG TABLET PO SCH (09:19)
[2020-12-14] MEDS: PANTOPRAZOLE 40 MG TABLET.DR. PO SCH (09:19)
--- NOTE | 2020-12-14 10:14 | HP ---
DATE OF SERVICE: 12/14/2020 ADMIT DATE: 12/13/2020 CHIEF COMPLAINT: Urinary tract infection. HISTORY OF PRESENT ILLNESS: The patient was in the ER 3 days prior to admission with pedal edema. LABORATORY STUDIES: Sodium unremarkable. Urine culture was done due to pyuria. He was started on oral Keflex, but cultures showed Pseudomonas and so he was told to come back into the ER for admission. Cefepime has been started as it appears to be sensitive on the urine culture. He denies fever, chills, dysuria or any other complaints. PAST MEDICAL HISTORY: Well documented in the old records that are CVA with right-sided weakness and difficulty. ALLERGIES: No known allergies. SOCIAL HISTORY: Lives with family. Nonsmoker, nondrinker. In a wheelchair. FAMILY HISTORY: Unremarkable. REVIEW OF SYSTEMS: A 12-point review of systems unremarkable. OBJECTIVE: ENT: All within normal limits. NECK: No masses, nodes or bruits. LUNGS: Clear. No tachypnea. CARDIOVASCULAR: Regular rate. No murmur or tachycardia. ABDOMEN: Soft, nontender and obese. EXTREMITIES: Mild pretibial edema. Good pedal pulses. No acute findings. NEUROLOGIC: Mild right orientation is good. ASSESSMENT: Pseudomonas urinary tract infection with no oral medicine options. He is otherwise medically stable. PLAN: IV cefepime for at least 3 days and we will do a renal and bladder sonogram to rule out significant postvoid residual. MADALYN/GENA/WILFRED JACOB: Clarence TID: [id number]
[2020-12-14] MEDS: CEFEPIME HCL IV Push 1 GM VIAL. IVP SCH ×3 (10:19→21:11)
[2020-12-14 11:00] VITALS: BP 116/72
[2020-12-14 15:25] VITALS: BP 98/67
--- NOTE | 2020-12-14 16:27 | NUR ---
Wound/Ostomy Care Wound Type/Assessment: Wound care consult for left lower leg open blister/VLU. Wound is in the healing stages and has scant drainage. No other wounds noted on head to toe skin assessment. Pt left sitting in chair with call light within reach. Treatment Recommendations/Plan: Left lower leg: cleanse wound, cover with xeroform and foam, change every 4-5 days. Education provided: pt educated on PU prevention and leg elevation to help with swelling Offloading surface/device: pillows to offload Recommended Referrals/Tests: n/a Discharge Recommendations for dressings: same as above, wound care team will f/u on 12/22/20.
[2020-12-14 19:00] VITALS: BP 103/58
[2020-12-14] MEDS: LACTOBACILLUS RHAMNOSUS GG 1 CAPSULE. PO SCH (20:45)
[2020-12-14] MEDS: CEFEPIME HCL IV Push 2 GM VIAL. IVP SCH (22:00)
[2020-12-14 23:12] VITALS: BP 115/72
[2020-12-15 03:14] VITALS: BP 112/68
[2020-12-15] MEDS: CEFEPIME HCL IV Push 1 GM VIAL. IVP SCH (05:31)
[2020-12-15 07:00] VITALS: BP 121/63
--- NOTE | 2020-12-15 08:33 | PDOC ---
Provider Note Date of Service: DATE: 12/15/20 TIME: 08:32 Provider Note dya 3 of cefipime for PSA uti, alert, no temp, labs good, cont same Justifications for Admission Other Justification MANJINDER DEWEY MD Dec 15, 2020 08:33
[2020-12-15] MEDS: BACLOFEN 10 MG TABLET. PO SCH ×3 (09:19→20:50)
[2020-12-15] MEDS: LACTOBACILLUS RHAMNOSUS GG 1 CAPSULE. PO SCH ×2 (09:19→20:51)
[2020-12-15] MEDS: LISINOPRIL 20 MG TABLET PO SCH (09:20)
[2020-12-15] MEDS: CITALOPRAM 20 MG TABLET. PO SCH (09:20)
[2020-12-15] MEDS: APIXABAN 5 MG TABLET. PO SCH ×2 (09:20→20:50)
[2020-12-15] MEDS: PANTOPRAZOLE 40 MG TABLET.DR. PO SCH (09:20)
[2020-12-15] MEDS: METOPROLOL SUCC 24HR ER 25 MG TAB.ER.24H. PO SCH (09:20)
[2020-12-15] MEDS: FUROSEMIDE 40 MG TABLET. PO SCH (09:21)
[2020-12-15] MEDS: CLOPIDOGREL BISULFATE 75 MG TABLET PO SCH (09:21)
[2020-12-15] MEDS: metFORMIN 500 MG TABLET PO SCH ×2 (09:21→16:39)
[2020-12-15 11:19] VITALS: BP 103/67
[2020-12-15] MEDS: CEFEPIME HCL IV Push 2 GM VIAL. IVP SCH (13:47)
[2020-12-15 15:00] VITALS: BP 102/66
[2020-12-15 19:00] VITALS: BP 102/64
[2020-12-15] MEDS: ATORVASTATIN CALCIUM 40 MG TABLET. PO SCH (20:50)
[2020-12-15] MEDS: DOXEPIN HCL 10 MG CAPSULE. PO SCH (20:50)
[2020-12-15 22:57] VITALS: BP 108/73
[2020-12-16 03:43] VITALS: BP 120/62
[2020-12-16] MEDS: CEFEPIME HCL IV Push 2 GM VIAL. IVP SCH ×2 (06:01→13:17)
[2020-12-16 07:15] VITALS: BP 119/77
[2020-12-16] MEDS: metFORMIN 500 MG TABLET PO SCH (07:52)
[2020-12-16] MEDS: PANTOPRAZOLE 40 MG TABLET.DR. PO SCH (07:52)
--- NOTE | 2020-12-16 07:56 | PDOC ---
Provider Note Date of Service: DATE: 12/16/20 TIME: 07:55 Provider Note [id number] Justifications for Admission Other Justification MANJINDER DEWEY MD Dec 16, 2020 07:56
--- NOTE | 2020-12-16 08:09 | DS ---
DATE OF DISCHARGE: 12/16/2020 HOSPITAL SUMMARY: A 65-year-old white male who was brought back in after an outpatient urine culture showed Pseudomonas resistant to all oral antibiotics. He was currently taking cephalexin, but he was not symptomatic of this infection. Chemistry profile and CBC were normal. Urinalysis showed white cells and nitrite consistent with an infection. COVID serology, chlamydia and gonorrhea testing were negative. Abdominopelvic CT showed mild bladder thickening. No obstruction or hydronephrosis and no other specific lesions except for a very small periumbilical hernia. He was treated with intravenous cefepime throughout the hospital stay and received a course adequate for simple cystitis. He remained afebrile, feeling better and is able to be discharged after another dose later today of his cefepime. FINAL DIAGNOSIS: Acute cystitis secondary to Pseudomonas aeruginosa. OPERATIONS, PROCEDURES AND COMPLICATIONS AND CONSULTATION: None. DISPOSITION: He will continue home medicines the same. No new antibiotics, but he will stop the cephalexin he was taking. Should this reoccur, he would need to consider urologic evaluation with cystoscopy to evaluate for any intravesicular lesions that could produce recurrent Pseudomonas infection. MADALYN/REI DR: Clarence TID: [id number]
[2020-12-16] MEDS: CLOPIDOGREL BISULFATE 75 MG TABLET PO SCH (09:25)
[2020-12-16] MEDS: METOPROLOL SUCC 24HR ER 25 MG TAB.ER.24H. PO SCH (09:25)
[2020-12-16] MEDS: BACLOFEN 10 MG TABLET. PO SCH ×2 (09:25→13:17)
[2020-12-16] MEDS: FUROSEMIDE 40 MG TABLET. PO SCH (09:25)
[2020-12-16] MEDS: APIXABAN 5 MG TABLET. PO SCH (09:26)
[2020-12-16] MEDS: CITALOPRAM 20 MG TABLET. PO SCH (09:26)
[2020-12-16] MEDS: LACTOBACILLUS RHAMNOSUS GG 1 CAPSULE. PO SCH (09:26)
[2020-12-16] MEDS: LISINOPRIL 20 MG TABLET PO SCH (09:26)
[2020-12-16 11:04] VITALS: BP 118/70
[2020-12-16 15:09] VITALS: BP 145/92
--- NOTE | 2020-12-16 16:28 | NUR ---
Patient discharged home with self care today via wheelchair, accompanied by this RN. Patient is stable, IV removed, and discharge paperwork given to patient. Patient and verbalized understanding of followup and discharge instruction. 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
== END 2020-12-16 16:20 | disposition home or self-care (01) | DRG 690 ==
LOC: ER 18:48 → 4 NORTH 22:44
PROVIDERS: ADMIT Family Medicine; ATTEND Family Medicine
DX: N30.00 Acute cystitis without hematuria (principal); Z16.24 Resistance to multiple antibiotics; B96.5 Pseudomonas (aeruginosa) (mallei) (pseudomallei) as the cause of diseases classified elsewhere; E11.9 Type 2 diabetes mellitus without complications; E78.00 Pure hypercholesterolemia, unspecified; E78.5 Hyperlipidemia, unspecified; I11.0 Hypertensive heart disease with heart failure; I50.9 Heart failure, unspecified; K42.9 Umbilical hernia without obstruction or gangrene; N32.3 Diverticulum of bladder; Z20.822 Contact with and (suspected) exposure to COVID-19
CPT/HCPCS: 36415; 74176; 80053; 81001; 82962; 83605; 85025; 87040; 87077; 87086; 87186; 87426; 87491; 87591; 96361; 96374; J0692; J7030; U0003; U0005; 99285-25; G0378

== ENCOUNTER 2021-07-06 15:11 | Emergency (ER) | payer OTHER ==
[~2021-07-06] VITALS: Ht 170.2 cm; Wt 100.0 kg
[2021-07-06 15:56] LABS: BASO # 0.1 x10^3/uL (0.0-0.2); BASO % 1 % (0-3); EOS # 0.4 x10^3/uL (0.0-0.7); EOS % 4 % (0-3); HEMATOCRIT 41.4 % (39.0-53.0); HEMOGLOBIN 13.6 g/dL (13.0-17.5); LYMPH # 1.7 x10^3/uL (1.0-4.8); LYMPH % 18 % (24-48); MEAN CORPUSCULAR HEMOGLOBIN 28 pg (25-35); MEAN CORPUSCULAR HGB CONC 33 g/dL (31-37); MEAN CORPUSCULAR VOLUME 85 fL (79-100); MONO # 0.9 x10^3/uL (0.0-1.1); MONO % 9 % (0-9); NEUT # 6.2 x10^3/uL (1.8-7.7); NEUT % 67 % (31-73); PLATELET COUNT 245 x10^3/uL (140-400); RED BLOOD COUNT 4.87 x10^6/uL (4.30-5.70); RED CELL DISTRIBUTION WIDTH 16.6 % (11.5-14.5); WHITE BLOOD COUNT 9.3 x10^3/uL (4.0-11.0)
[2021-07-06 16:12] LABS: CALCIUM 8.9 mg/dL (8.5-10.1); CREATININE 1.2 mg/dL (0.7-1.3); POTASSIUM 4.2 mmol/L (3.5-5.1)
[2021-07-06 16:17] LABS: ALBUMIN 3.3 g/dL (3.4-5.0); ALBUMIN/GLOBULIN RATIO 0.8 (1.0-1.7); TOTAL BILIRUBIN 0.3 mg/dL (0.2-1.0); TOTAL PROTEIN 7.5 g/dL (6.4-8.2)
[2021-07-06 16:41] LABS: BACTERIA,URINE 0 /HPF (0-FEW); RBC,URINE 0 /HPF (0-2)
--- NOTE | 2021-07-06 17:05 | RAD ---
XR CHEST 1V History: Bilateral lower extremity swelling. Congestive heart failure. Comparison: 12/10/2020, 10/15/2020. CT abdomen and pelvis 12/13/2020. Technique: Portable AP radiograph of the chest. Findings: The lungs are adequately inflated. Subtle left lower lobe airspace opacity. No pleural effusion or pn eumothorax. Mild prominence of the pulmonary vasculature and interstitial markings. The heart size is within normal limits. There is a small hiatal hernia. Osseous structures are unremarkable. Impression: 1. Mild left lower lung opacity may represent chronic lingular consolidation. Superimposed acute inf ection cannot be excluded. 2. Mild prominence of pulmonary vasculature and interstitial markings may represent pulmonary vascul ar congestion or early interstitial edema. Electronically signed by: Marty Rain MD (07/06/2021 5:03 PM) [id number]
[2021-07-06] MEDS ORDERED: NYSTATIN 100,000 UNIT/GM TOPICAL CREAM 15GM TUBE. TP STA (17:10)
[2021-07-06] MEDS ORDERED: FUROSEMIDE 40 MG/4 ML VIAL. IVP ONE (17:15)
[2021-07-06] MEDS ORDERED: NYST15CR TP ×2 (18:01→18:53)
[2021-07-06] MEDS ORDERED: CEPH500T PO ×2 (18:01→18:53)
--- NOTE | 2021-07-06 18:01 | PHYS DOC ---
Past Medical History Past Medical History: CHF, CVA, Diabetes-Type II, High Cholesterol, Hypertension Past Surgical History: Other Additional Past Surgical Histo: eye surgery for lens bilaterally Smoking Status: Former Smoker Alcohol Use: None Drug Use: None General Adult EDM: Chief Complaint: LOWER EXTREMITY SWELLING HPI: HPI: Patient is a 65 year old male with a history of CHF, hypertension, high cholesterol, CVA with left-sided deficit presented to the ED today complaining of bilateral lower extremity swelling worse on the left leg, patient states symptoms are chronic but he feels the left lower extremity has swollen more than normal. He is also complaining of yeast infection underneath his left abdominal flap. Denies any fever, denies any chest pain or shortness of breath. Reports being seen in the ED in June 12, 2021 for bilateral lower extremity swelling, patient states he is on furosemide and he believes he is taking it as prescribed Review of Systems: Review of Systems: Constitutional: Denies fever or chills. [] Eyes: Denies change in visual acuity. [] HENT: Denies nasal congestion or sore throat. [] Respiratory: Denies cough or shortness of breath. [] Cardiovascular: Denies chest pain or edema. [] GI: Denies abdominal pain, nausea, vomiting, bloody stools or diarrhea. [] : Denies dysuria. [] Musculoskeletal: Denies back pain or joint pain. [] Integument: Reports yeast infection underneath the left abdominal flap, reports bilateral lower extremity swelling worse on the left. Neurologic: Denies headache, focal weakness or sensory changes. [] Psychiatric: Denies depression or anxiety. [] Heart Score: C/O Chest Pain: N/A Risk Factors: Risk Factors: DM, Current or recent (<one month) smoker, HTN, HLP, family history of CAD, obesity. Risk Scores: Score 0 - 3: 2.5% MACE over next 6 weeks - Discharge Home Score 4 - 6: 20.3% MACE over next 6 weeks - Admit for Clinical Observation Score 7 - 10: 72.7% MACE over next 6 weeks - Early Invasive Strategies Current Medications: Current Medications Medications (Trade) Dose Ordered Sig/Elvia Start Time Stop Time Status Last Admin Dose Admin Furosemide (Lasix) 40 mg 1X ONCE 07/06/21 17:15 07/06/21 17:16 DC 07/06/21 17:43 40 MG Nystatin (Mycostatin) 1 kathi 1X STAT 07/06/21 17:10 07/06/21 17:12 DC 07/06/21 17:43 1 KATHI Allergies: Allergies: Allergies Coded Allergies Type Severity Reaction Last Updated Verified I S O L A T I O N *CONTACT* Allergy Unknown 12/10/20 Yes No Known Medication Allergies Allergy Unknown 12/10/20 Yes Physical Exam: PE: Constitutional: Well developed, well nourished, no acute distress, non-toxic appearance. [] HENT: Normocephalic, atraumatic, bilateral external ears normal, oropharynx moist, no oral exudates, nose normal. [] Eyes: PERRLA, EOMI, conjunctiva normal, no discharge. [] Neck: Normal range of motion, no tenderness, supple, no stridor. [] Cardiovascular:Heart rate regular rhythm, no murmur [] Lungs & Thorax: Bilateral breath sounds clear to auscultation [] Abdomen: Bowel sounds normal, soft, no tenderness, no masses, no pulsatile masses. [] Skin: Left abdominal flap with redness consistent of cutaneous candidiasis Back: No tenderness, no CVA tenderness. [] Extremities: No tenderness, no cyanosis, no clubbing, contracted left upper extremity, left lower extremity in a foot drop brace, +3 edema on the left lower extremity. +1 edema to the right lower extremity. Negative Homans' sign bila terally. +2 bilateral pedal pulses. Neurologic: Alert and oriented X 3, normal motor function, normal sensory function, no focal deficits noted. [] Psychologic: Affect normal, judgement normal, mood normal. [] Current Patient Data: Labs: Laboratory Tests Test 07/06/21 15:50 07/06/21 16:15 White Blood Count 9.3 x10^3/uL (4.0-11.0) Red Blood Count 4.87 x10^6/uL (4.30-5.70) Hemoglobin 13.6 g/dL (13.0-17.5) Hematocrit 41.4 % (39.0-53.0) Mean Corpuscular Volume 85 fL (79-100) Mean Corpuscular Hemoglobin 28 pg (25-35) Mean Corpuscular Hemoglobin Concent 33 g/dL (31-37) Red Cell Distribution Width 16.6 % (11.5-14.5) H Platelet Count 245 x10^3/uL (140-400) Neutrophils (%) (Auto) 67 % (31-73) Lymphocytes (%) (Auto) 18 % (24-48) L Monocytes (%) (Auto) 9 % (0-9) Eosinophils (%) (Auto) 4 % (0-3) H Basophils (%) (Auto) 1 % (0-3) Neutrophils # (Auto) 6.2 x10^3/uL (1.8-7.7) Lymphocytes # (Auto) 1.7 x10^3/uL (1.0-4.8) Monocytes # (Auto) 0.9 x10^3/uL (0.0-1.1) Eosinophils # (Auto) 0.4 x10^3/uL (0.0-0.7) Basophils # (Auto) 0.1 x10^3/uL (0.0-0.2) Sodium Level 138 mmol/L (136-145) Potassium Level 4.2 mmol/L (3.5-5.1) Chloride Level 100 mmol/L (98-107) Carbon Dioxide Level 27 mmol/L (21-32) Anion Gap 11 (6-14) Blood Urea Nitrogen 23 mg/dL (8-26) Creatinine 1.2 mg/dL (0.7-1.3) Estimated GFR (Cockcroft-Gault) 61.0 BUN/Creatinine Ratio 19 (6-20) Glucose Level 200 mg/dL (70-99) H Calcium Level 8.9 mg/dL (8.5-10.1) Magnesium Level 2.0 mg/dL (1.8-2.4) Total Bilirubin 0.3 mg/dL (0.2-1.0) Aspartate Amino Transferase (AST) 21 U/L (15-37) Alanine Aminotransferase (ALT) 20 U/L (16-63) Alkaline Phosphatase 115 U/L (46-116) Troponin I High Sensitivity 23 ng/L (4-75) FV-Rwm-M-Type Natriuretic Peptide 463 pg/mL (0-124) H Total Protein 7.5 g/dL (6.4-8.2) Albumin 3.3 g/dL (3.4-5.0) L Albumin/Globulin Ratio 0.8 (1.0-1.7) L Urine Collection Type Unknown Urine Color (Auto) Colorless Urine Turbidity Clear Urine pH (Auto) 5.5 (<5.0-8.0) Urine Specific [place] 1.017 (1.000-1.030) Urine Protein (Auto) Negative mg/dL (Negative) Urine Glucose (Auto)(UA) >=1000 mg/dL (Negative) Urine Ketones (Auto) Negative mg/dL (Negative) Urine Blood (Auto) Negative (Negative) Urine Nitrite Negative (Negative) Urine Bilirubin (Auto) Negative (Negative) Urine Urobilinogen (Auto) Normal mg/dL (Normal) Urine Leukocyte Esterase (Auto) Moderate (Negative) Urine RBC 0 /HPF (0-2) Urine WBC 11-20 /HPF (0-4) Urine Bacteria 0 /HPF (0-FEW) Urine Mucus Slight /LPF Laboratory Tests 07/06/21 15:50 Laboratory Tests 07/06/21 15:50 Vital Signs: Vital Signs Date Time Temp Pulse Resp B/P (MAP) Pulse Ox O2 Delivery O2 Flow Rate FiO2 07/06/21 15:35 98.8 92 22 128/60 (82) 93 Room Air 98.8 EKG: EKG: [] Radiology/Procedures: Radiology/Procedures: []PROCEDURE: PORTABLE CHEST 1V XR CHEST 1V History: Bilateral lower extremity swelling. Congestive heart failure. Comparison: 12/10/2020, 10/15/2020. CT abdomen and pelvis 12/13/2020. Technique: Portable AP radiograph of the chest. Findings: The lungs are adequately inflated. Subtle left lower lobe airspace opacity. No pleural effusion or pneumothorax. Mild prominence of the pulmonary vasculature and interstitial markings. The heart size is within normal limits. There is a small hiatal hernia. Osseous structures are unremarkable. Impression: 1. Mild left lower lung opacity may represent chronic lingular consolidation. Superimposed acute infection cannot be excluded. 2. Mild prominence of pulmonary vasculature and interstitial markings may represent pulmonary vascular congestion or early interstitial edema. Electronically signed by: Marty Rain MD (07/06/2021 5:03 PM) [id number] DICTATED and SIGNED BY: MARTY RAIN MD DATE: 07/06/21 4039 Course & Med Decision Making: Course & Med Decision Making Pertinent Labs and Imaging studies reviewed. (See chart for details) This a 65-year-old male patient presented to the ED today complaining of increased swelling to the left lower extremity, patient reports chronic bilateral lower extremity swelling from CHF. Patient is also complaining of a yeast infection underneath the left abdominal flap. Chest x-ray interpreted by radiologist noted for mild left lower lung opacity may represent chronic lingular consolidation. Superimposed acute infection cannot be excluded-patient has no cough, fever or URI symptoms CBC no acute findings, CMP with glucose of 200, history of diabetes type 2. Anion gap and CO2 are normal. BNP 463, UA positive for UTI. EKG and troponin are negative. He was given furosemide in the ED IV which he takes p.o. Venous Doppler of the left lower extremity is negative Discharged on nystatin for the yeast infection. Discharged with cephalexin for UTI. Instructed to ensure he is taking his furosemide. Encouraged him to get compression stockings for his lower extremities. Encouraged him to elevate his bilateral lower extremities Dragon Disclaimer: Dragon Disclaimer: This electronic medical record was generated, in whole or in part, using a voice recognition dictation system. Departure Departure Impression: Primary Impression: Lower extremity edema Additional Impression: UTI (urinary tract infection) Qualified Codes: N39.0 - Urinary tract infection, site not specified Disposition: HOME / SELF CARE / HOMELESS Condition: STABLE Referrals: VY MCDOWELL MD (PCP) Patient Instructions: Edema, Urinary Tract Infection Additional Instructions: You were evaluated in the emergency room and noted to have yeast infection on your abdomen. Please use the prescribed nystatin cream as ordered. You also have urinary tract infection, take the prescribed antibiotics as ordered until completed. Consider buying compression stockings and wearing them to reduce swelling in your feet. Consider elevating bilateral lower extremities. Follow- up with your doctor on Sunday Scripts Cephalexin (CEPHALEXIN) 500 Mg Tablet 1 TAB PO BID, #14 TAB Prov: LUKAS BENNETT SALMON TROLL FISHER 07/06/21 Nystatin (NYSTATIN) 15 Gm Cream..g. 1 KATHI TP BID, #30 GM 1 Refill Prov: LUKAS BENNETT Marge SALMON TROLL FISHER 07/06/21 LUKAS BENNETT SALMON TROLL FISHER July 06, 2021 18:01
[2021-07-06 18:33] VITALS: BP 110/70
--- NOTE | 2021-07-06 19:06 | RAD ---
Left lower extremity venous duplex Doppler ultrasound HISTORY: Left leg swelling and edema. FINDINGS: No DVT on grayscale sonography with compressibility, patency color Doppler blood flow and a ugmentation of blood flow to the left common femoral vein, profunda femoral vein, superficial femoral vein and popliteal vein. No DVT evident with patent color Doppler flow to the posterior tibial and p eroneal veins in the calf. IMPRESSION: Negative left leg for DVT. Electronically signed by: Brian Huerta MD (07/06/2021 7:03 PM) [facility]
--- NOTE | 2021-07-07 14:20 | EKG ---
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
== END 2021-07-06 19:00 | disposition home or self-care (01) ==
LOC: ER 15:11
DX: N39.0 Urinary tract infection, site not specified (principal); R22.43 Localized swelling, mass and lump, lower limb, bilateral; E11.9 Type 2 diabetes mellitus without complications; E78.00 Pure hypercholesterolemia, unspecified; I11.0 Hypertensive heart disease with heart failure; I50.9 Heart failure, unspecified; Z86.73 Personal history of transient ischemic attack (TIA), and cerebral infarction without residual deficits; Z87.891 Personal history of nicotine dependence; Z91.041 Radiographic dye allergy status
CPT/HCPCS: 36415; 71045; 80053; 81001; 83735; 83880; 84484; 85025; 87077; 87086; 87186; 93005; 93971; 96374; 99285; J1940